=== PATIENT | female | born 1960 | race Caucasian/White ===

== ENCOUNTER 2018-02-24 11:19 | Emergency (ER) | payer OTHER ==
[2018-02-24] MEDS ORDERED: FENTANYL CITR 100 MCG/2 ML ONE ×2 (12:11→15:19)
--- NOTE | 2018-02-24 13:57 | RAD REPORT ---
EXAM DESCRIPTION: RAD - Ankle Left 3 View - 02/24/2018 1:50 pm CLINICAL HISTORY: Fall, ankle pain COMPARISON: None. FINDINGS: Comminuted fracture of the distal fibula is present at the diaphyseal metaphyseal junction . This is primarily a spiral type fracture with 2 mm of distraction. No significant angulation deform ity. There is a small a avulsed fragment 4 mm in size from the posterior malleolus. Nondisplaced white sverse fracture through the medial malleolus is present. No dislocation of the talus. No talus, calca neus or tarsal bone fracture identified. Soft tissue swelling is present around the ankle joint. No f oreign body. IMPRESSION: Left ankle trimalleolar fracture as detailed.
--- NOTE | 2018-02-24 14:00 | RAD REPORT ---
EXAM DESCRIPTION: RAD - Knee Left 3 View - 02/24/2018 1:50 pm CLINICAL HISTORY: Fall, knee pain COMPARISON: None. FINDINGS: Significant medial compartment narrowing seen with mild to moderate marginal spurring. Sim ilar spurs are present in the lateral compartment without joint space narrowing. Spurring of the rae lla articular margins seen without a patella fracture confirmed. Minimal joint effusion is present. O n the lateral view there is a small irregular bony density along the anterior margin. Small bony avul candelario or fracture cannot be excluded. Follow-up MR or CT imaging may be helpful for further characteri zation. IMPRESSION: Small bone avulsion or intra-articular loose body along the anterior margin of the joint line. Significant degenerative change in the medial compartment of the knee and more mild patellofemoral de generative change. Followup thin section CT imaging or MR imaging may be helpful for further characterization.
--- NOTE | 2018-02-24 14:40 | EDPHYS ---
Physician Documentation [facility] Name: Jose M Jovel Age: 57 yrs Sex: Female : 1960 Arrival Date: 02/24/2018 Time: 11:24 Bed 20 Private MD: ED Physician Jamir Matt HPI: 02/24 12:15 This 57 yrs old Female presents to ER via EMS with complaints of left knee snw pain. 12:15 The patient presents with decreased range of motion, an injury, pain. The complaints snw affect the left knee and anterior aspect of left ankle. Context: The problem was sustained at home, resulted from the patient falling, the patient is not able to ambulate, Problem is a result from a previous injury: Yes. Onset: The symptoms/episode began/occurred suddenly, just prior to arrival. Associated signs and symptoms: Pertinent positives: weakness. Severity of symptoms: At their worst the symptoms were moderate, severe. The patient has experienced similar episodes in the past. The patient has been recently seen by a physician: the patient's primary care provider, Dr. Small has been seeing Dr. Coker as well. Historical: - Allergies: 11:32 No Known Allergies; aj - Home Meds: 11:32 lisinopril 20 mg Oral tab 1 tab once daily [Active]; sertraline 100 mg oral tab 1 tab aj once daily [Active]; nortriptyline 75 mg Oral cap 1 cap once daily [Active]; Zetia 10 mg Oral tab 1 tab once daily [Active]; amlodipine 5 mg tab 1 tab once daily [Active]; bupropion HCl 300 mg Oral Tb24 1 tab once daily [Active]; tramadol 50 mg Oral tab twice a day [Active]; gabapentin 600 mg oral tab 1 tab 3 times per day [Active]; trazodone 100 mg Oral tab twice a day [Active]; - PMHx: 11:32 Hypertension; Chronic pain; TIA; aj - PSHx: 11:32 bulging disc; aj - Immunization history:: Adult Immunizations up to date. - Social history:: Smoking status: Patient/guardian denies using tobacco. ROS: 12:12 Constitutional: Negative for fever, chills, and weight loss, Eyes: Negative for injury, snw pain, redness, and discharge, ENT: Negative for injury, pain, and discharge, Neck: Negative for injury, pain, and swelling, Cardiovascular: Negative for chest pain, palpitations, and edema, Respiratory: Negative for shortness of breath, cough, wheezing, and pleuritic chest pain, Abdomen/GI: Negative for abdominal pain, nausea, vomiting, diarrhea, and constipation, Back: Negative for injury and pain, : Negative for injury, bleeding, discharge, and swelling, Skin: Negative for injury, rash, and discoloration, Neuro: Negative for headache, weakness, numbness, tingling, and seizure. 12:12 MS/extremity: Positive for injury or acute deformity, decreased range of motion, pain, swelling, tenderness, of the left knee. Exam: 12:13 Eyes: Pupils equal round and reactive to light, extra-ocular motions intact. Lids and snw lashes normal. Conjunctiva and sclera are non-icteric and not injected. Cornea within normal limits. Periorbital areas with no swelling, redness, or edema. ENT: Nares patent. No nasal discharge, no septal abnormalities noted. Tympanic membranes are normal and external auditory canals are clear. Oropharynx with no redness, swelling, or masses, exudates, or evidence of obstruction, uvula midline. Mucous membranes moist. Neck: Trachea midline, no thyromegaly or masses palpated, and no cervical lymphadenopathy. Supple, full range of motion without nuchal rigidity, or vertebral point tenderness. No Meningismus. Chest/axilla: Normal chest wall appearance and motion. Nontender with no deformity. No lesions are appreciated. Cardiovascular: Regular rate and rhythm with a normal S1 and S2. No gallops, murmurs, or rubs. Normal PMI, no JVD. No pulse deficits. Respiratory: Lungs have equal breath sounds bilaterally, clear to auscultation and percussion. No rales, rhonchi or wheezes noted. No increased work of breathing, no retractions or nasal flaring. Abdomen/GI: Soft, non-tender, with normal bowel sounds. No distension or tympany. No guarding or rebound. No evidence of tenderness throughout. Back: No spinal tenderness. No costovertebral tenderness. Full range of motion. Skin: Warm, dry with normal turgor. Normal color with no rashes, no lesions, and no evidence of cellulitis. Neuro: Awake and alert, GCS 15, oriented to person, place, time, and situation. Cranial nerves II-XII grossly intact. Motor strength 5/5 in all extremities. Sensory grossly intact. Cerebellar exam normal. Normal gait. 12:13 Constitutional: The patient appears agitated, anxious, obese, restless. 12:13 Head/face: Noted is polycythemic. 12:13 Musculoskeletal/extremity: Extremities: grossly normal except: noted in the left knee and left ankle: decreased ROM, swelling, tenderness, ROM: limited active range of motion due to pain, Circulation is intact in all extremities. Compartment Syndrome exam of affected extremity: is normal. 12:13 Psych: Behavior/mood is anxious, aggressive, Affect is animated, Oriented to person, place, time, Patient has no thoughts/intents to harm self or others. Vital Signs: 11:34 BP 136 / 72; Pulse 96; Resp 18; Temp 98.5; Pulse Ox 100% on R/A; Weight 91.63 kg; aj Height 5 ft. 3 in. (160.02 cm); Pain 9/10; 12:34 BP 135 / 89; Pulse 96; Resp 17; Pulse Ox 100% on R/A; dh3 13:30 BP 126 / 74; Pulse 93; Resp 17; Pulse Ox 96% on R/A; dh3 16:33 BP 128 / 86; Pulse 92; Resp 16; Pulse Ox 96% on R/A; aj 11:34 Body Mass Index 35.78 (91.63 kg, 160.02 cm) aj MDM: 11:32 Patient medically screened. snw 15:25 Data reviewed: vital signs, nurses notes. Data interpreted: Pulse oximetry: on room air snw is 96 %. Interpretation: normal. Counseling: I had a detailed discussion with the patient and/or guardian regarding: the historical points, exam findings, and any diagnostic results supporting the discharge/admit diagnosis, radiology results, the need for outpatient follow up, to return to the emergency department if symptoms worsen or persist or if there are any questions or concerns that arise at home. Special discussion: Based on the history and exam findings, there is no indication for further emergent testing or inpatient evaluation. I discussed with the patient/guardian the need to see the orthopedic surgeon for further evaluation of the symptoms. I discussed with the patient/guardian the need to see the primary care provider for further evaluation of the symptoms. 02/24 11:33 Order name: Knee Left 3 View XRAY; Complete Time: 14:03 snw 02/24 12:31 Order name: Ankle Left 3 View XRAY; Complete Time: 14:03 aj 02/24 14:07 Order name: Long Leg Splint: Posterior w/ Stirrup; Complete Time: 16:17 snw Administered Medications: 12:13 Drug: fentaNYL (PF) 75 mcg Route: IM; Site: right deltoid; aj 12:47 Follow up: Response: Pain is decreased aj 15:24 Drug: fentaNYL (PF) 75 mcg Route: IM; Site: left deltoid; aj 16:17 Follow up: Response: Pain is decreased aj Disposition: 21:08 Co-signature as Attending Physician, Jamir Matt MD. rn Disposition: 02/24/18 14:40 Discharged to Home. Impression: Fall on same level from slipping, tripping and stumbling, Trimalleolar fracture of lower leg. - Condition is Stable. - Discharge Instructions: Ankle Fracture, Cast or Splint Care, Fall Prevention and Home Safety, Walker Use. - Prescriptions for Tylenol- Codeine #3 300-30 mg Oral Tablet - take 2 tablet by ORAL route every 6 hours As needed; 30 tablet. orphenadrine citrate 100 mg Oral Tablet Sustained Release - take 1 tablet by ORAL route 2 times per day As needed; 20 tablet. - Medication Reconciliation Form, Thank You Letter, Antibiotic Education, Prescription Opioid Use form. - Follow up: Private Physician; When: 2 - 3 days; Reason: Recheck today's complaints, Continuance of care, Re-evaluation by your physician. Follow up: Ramana Wise MD; When: 1 - 2 days; Reason: Recheck today's complaints, Continuance of care. Signatures: Dispatcher [employer] Shannen Chen RN RN Joan Bah, MEDICAL LABORATORY MANAGER-C MEDICAL LABORATORY MANAGER-Csnw Jamir Matt MD MD car barn laborer: (The following items were deleted from the chart) 12:58 12:13 Knee Left 3 View ordered. EDMS EDMS
--- NOTE | 2018-02-24 14:40 | ER ---
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 Patient reports feeling unsteady while walking to her chair when she fell. Denies LOC. EMS splinted non deformed left lower leg RATING CLERK at ER. Transition of care: patient was not received from another setting of care. Initial Sepsis Screen: Does the patient meet any 2 criteria?. 11:25 Method Of Arrival: EMS: [facility] aj 11:27 Initial Sepsis Screen: Does the patient meet any 2 criteria? No. Patient's initial aj sepsis screen is negative. Does the patient have a suspected source of infection?. Onset of symptoms was February 24, 2018. Care prior to arrival: Splint applied. 11:27 Acuity: GUSTABO 4 aj Triage Assessment: 11:32 General: Appears in no apparent distress. comfortable, Behavior is calm, cooperative, aj appropriate for age. Pain: Complains of pain in left knee and anterior aspect of left ankle. Neuro: Level of Consciousness is awake, alert, obeys commands, Oriented to person, place, time, situation. Respiratory: Airway is patent Respiratory effort is even, unlabored, Respiratory pattern is regular, symmetrical. Derm: Skin is intact, is healthy with good turgor, Skin is pink, warm \T\ dry. normal. Musculoskeletal: Swelling absent Reports pain in left knee, left romero and anterior aspect of left ankle. Historical: - Allergies: 11:32 No Known Allergies; aj - Home Meds: 11:32 lisinopril 20 mg Oral tab 1 tab once daily [Active]; sertraline 100 mg oral tab 1 tab aj once daily [Active]; nortriptyline 75 mg Oral cap 1 cap once daily [Active]; Zetia 10 mg Oral tab 1 tab once daily [Active]; amlodipine 5 mg tab 1 tab once daily [Active]; bupropion HCl 300 mg Oral Tb24 1 tab once daily [Active]; tramadol 50 mg Oral tab twice a day [Active]; gabapentin 600 mg oral tab 1 tab 3 times per day [Active]; trazodone 100 mg Oral tab twice a day [Active]; - PMHx: 11:32 Hypertension; Chronic pain; TIA; aj - PSHx: 11:32 bulging disc; aj - Immunization history:: Adult Immunizations up to date. - Social history:: Smoking status: Patient/guardian denies using tobacco. Screenin:14 Abuse screen: Denies threats or abuse. Denies injuries from another. Nutritional aj screening: No deficits noted. Tuberculosis screening: No symptoms or risk factors identified. Fall Risk Fall in past 12 months (25 points). Assessment: 12:14 Reassessment: See triage. Patient has visitor at bedside. aj 12:46 Reassessment: Patient appears in no apparent distress at this time. Patient and/or aj family updated on plan of care and expected duration. Pain level reassessed. Patient is alert, oriented x 3, equal unlabored respirations, skin warm/dry/pink. Patient states feeling better. Patient states symptoms have improved. Vital Signs: 11:34 BP 136 / 72; Pulse 96; Resp 18; Temp 98.5; Pulse Ox 100% on R/A; Weight 91.63 kg; aj Height 5 ft. 3 in. (160.02 cm); Pain 9/10; 12:34 BP 135 / 89; Pulse 96; Resp 17; Pulse Ox 100% on R/A; dh3 13:30 BP 126 / 74; Pulse 93; Resp 17; Pulse Ox 96% on R/A; dh3 16:33 BP 128 / 86; Pulse 92; Resp 16; Pulse Ox 96% on R/A; aj 11:34 Body Mass Index 35.78 (91.63 kg, 160.02 cm) aj ED Course: 11:24 Patient arrived in ED. bd 11:25 Shannen Kumar, JOHN is Primary Nurse. aj 11:27 Joan Menezes FNP-C is PHCP. snw 11:27 Jamir Matt MD is Attending Physician. snw 11:27 Triage completed. aj 11:34 Arm band placed on left wrist. Patient placed in an exam room, on a stretcher. aj 13:50 Knee Left 3 View XRAY In Process Unspecified. EDMS 13:50 Ankle Left 3 View XRAY In Process Unspecified. EDMS 14:08 X-ray completed. Portable x-ray completed in exam room. jr1 14:39 Ramana Wise MD is Referral Physician. snw 16:33 Patient has correct armband on for positive identification. Bed in low position. aj 16:33 No provider procedures requiring assistance completed. Patient did not have IV access aj during this emergency room visit. Orthoglass splint: Posterior long leg splint applied on left leg. stirrup splint applied on By [employer] facilities operations technician. Administered Medications: 12:13 Drug: fentaNYL (PF) 75 mcg Route: IM; Site: right deltoid; aj 12:47 Follow up: Response: Pain is decreased aj 15:24 Drug: fentaNYL (PF) 75 mcg Route: IM; Site: left deltoid; aj 16:17 Follow up: Response: Pain is decreased aj Outcome: 14:40 Discharge ordered by . snw 16:37 Patient left the ED. aj Signatures: Dispatcher [employer] EDAZ Brea Carreon Amanda, RN RN Joan Bah, PODIATRY DOCTOR-C PODIATRY DOCTOR-Csnw Geovanna Kumar jr1 Aria Ramos 3 Corrections: (The following items were deleted from the chart) 11:35 11:27 Care prior to arrival: None. aj aj
[2018-02-24 16:41] VITALS: TEMP 98.5
[2018-02-24 16:43] VITALS: O2SAT 96
[2018-02-24 16:44] VITALS: BP 128/86
== END 2018-02-24 16:37 | disposition home or self-care (01) ==
LOC: ER 11:19
PROC: 2W3MX1Z Immobilization of Left Lower Extremity using Splint (ICD-10-PCS; principal; 2018-02-24)
DX: S82.852A Displaced trimalleolar fracture of left lower leg, initial encounter for closed fracture (principal); W19.XXXA Unspecified fall, initial encounter; Y93.9 Activity, unspecified; Y92.009 Unspecified place in unspecified non-institutional (private) residence as the place of occurrence of the external cause; I10 Essential (primary) hypertension
CPT/HCPCS: 96372; 99284; J3010

== ENCOUNTER 2018-02-25 18:30 | Inpatient (IN) | payer OTHER ==
--- NOTE | 2018-02-25 19:36 | RAD REPORT ---
EXAM DESCRIPTION: CT - Head Brain Wo Cont - 02/25/2018 7:30 pm CLINICAL HISTORY: Altered consciousness. COMPARISON: MR brain 01/13/2018 TECHNIQUE: All CT scans are performed using dose optimization technique as appropriate and may inclu de automated exposure control or mA/KV adjustment according to patient size. FINDINGS: No intracranial hemorrhage, hydrocephalus or extra-axial fluid collection.No areas of brai n edema or evidence of midline shift. The paranasal sinuses and mastoids are clear. The calvarium is intact. Vertebrobasilar atherosclerosi s noted. IMPRESSION: No acute intracranial abnormality.
--- NOTE | 2018-02-25 19:42 | RAD REPORT ---
EXAM DESCRIPTION: CT - Spine Lumbar Wo Con - 02/25/2018 7:34 pm CLINICAL HISTORY: Radiculopathy. COMPARISON: MRI 01/13/2018 TECHNIQUE: Axial noncontrast CT imaging of the lumbar spine was performed with coronal and sagittal re-formatted images. All CT scans are performed using dose optimization technique as appropriate and may include automated exposure control or mA/KV adjustment according to patient size. FINDINGS: No acute lumbar spine fracture seen. No aggressive marrow pattern or malalignment. Paraspinal tissues are normal in thickness. No paraspinal abscess or hematoma seen. Prominent degenerative changes present L5-S1 with vacuum disc degeneration, endplate osteophytes and endplate sclerosis. 5 mm degenerative anterolisthesis of L4 on 5 is also noted with facet hypertrophy and foraminal narrowing bilaterally. Aortoiliac atherosclerosis is seen. IMPRESSION: No acute lumbar spine abnormality. Prominent lower lumbar spondylosis.
[2018-02-25 20:21] LABS: Absolute Lymphocytes (CBC) 6.8 K/uL (0.7-4.9); Absolute Neutrophil 10.2 K/uL (1.8-8.0); Basophils % 1.3 % (0-1.3); Eosinophils % 2.5 % (0-4.4); Hematocrit 44.4 % (36.0-45.0); Lymphocytes % 34.2 % (15.3-44.8); MCH 29.2 pg (27.0-35.0); MCV 88.4 fL (80-100); Monocytes % 10.2 % (3.3-12.3); RBC Red Blood Cell Count 5.03 M/uL (3.86-4.86)
[2018-02-25 20:26] LABS: Potassium 4.5 mEq/L (3.6-5.0)
[2018-02-25 20:27] LABS: Protime INR 0.99
[2018-02-25 20:29] LABS: Magnesium 2.1 mg/dL (1.8-2.5)
[2018-02-25 20:37] LABS: CKMB Creatine Kinase MB 0.9 ng/ml (0.3-4.0)
[2018-02-25 21:04] LABS: Urine Blood NEGATIVE (NEG); Urine Glucose 1+ (NEG); Urine Protein NEGATIVE (NEG); Urine pH 7.5 (5.0-7.0)
[2018-02-25] MEDS ORDERED: HYDROCODONE/APAP 5/325 MG TAB ONE (21:18)
--- NOTE | 2018-02-25 21:44 | RAD REPORT ---
EXAM DESCRIPTION: RAD - Chest Single View - 02/25/2018 9:39 pm CLINICAL HISTORY: Chest pain, hypertension COMPARISON: 09/09/2014, 07/27/2009 FINDINGS: Portable technique limits examination quality. The lungs are grossly clear. The heart is normal in size. No displaced fractures. IMPRESSION: No acute intrathoracic process suspected.
--- NOTE | 2018-02-25 21:52 | ER ---
Nurse's Notes [facility] Name: Jose M Jovel Age: 57 yrs Sex: Female : 1960 Arrival Date: 02/25/2018 Time: 18:39 Bed 4 Private MD: Diagnosis: Weakness;Tremor, unspecified Presentation: 02/25 18:29 Presenting complaint: EMS states: they were called out for pt stating she was having a sv "TIA." On EMS arrival pt was having "jerky movements" with legs and arms. Movements appeared intentional by EMS. Pt was having erratic behavior. BP 109/70 HR 90s A\\T\\O x4. Transition of care: patient was not received from another setting of care. Onset of symptoms was February 25, 2018. Initial Sepsis Screen: Does the patient meet any 2 criteria? No. Patient's initial sepsis screen is negative. Does the patient have a suspected source of infection? No. Patient's initial sepsis screen is negative. Care prior to arrival:. 18:29 Method Of Arrival: EMS: [facility] sv 18:29 Acuity: GUSTABO 3 sv Triage Assessment: 18:49 General: Appears in no apparent distress. uncomfortable, obese, Behavior is sv cooperative, anxious. Pain: Denies pain. EENT: No signs and/or symptoms were reported regarding the EENT system. Neuro: Level of Consciousness is awake, alert, obeys commands, Oriented to person, place, time, situation, Moves all extremities. Full function Speech is normal, fast and at times rambling. Cardiovascular: Patient's skin is warm and dry. Pulses are 3+ in right radial artery and left radial artery. Respiratory: Respiratory effort is even, unlabored, Respiratory pattern is regular, symmetrical. Derm: Skin is pink, warm \\T\\ dry. Musculoskeletal: Pt has a splint to the LLE. Historical: - Allergies: 18:47 No Known Allergies; sv - Home Meds: 18:47 lisinopril 20 mg Oral tab 1 tab once daily [Active]; sertraline 100 mg Oral tab 1 tab sv once daily [Active]; nortriptyline 75 mg Oral cap 1 cap once daily [Active]; Zetia 10 mg Oral tab 1 tab once daily [Active]; amlodipine 5 mg tab 1 tab once daily [Active]; bupropion HCl 300 mg Oral Tb24 1 tab once daily [Active]; tramadol 50 mg Oral tab twice a day [Active]; gabapentin 600 mg Oral tab 1 tab 3 times per day [Active]; trazodone 100 mg Oral tab twice a day [Active]; - PMHx: 18:47 Chronic pain; Hypertension; TIA; sv - PSHx: 18:47 bulging disc; sv - Immunization history:: Adult Immunizations up to date. - Family history:: not pertinent. - Social history:: Smoking status: Patient uses tobacco products, unknown amount. - Hospitalizations: : No recent hospitalization is reported. Screenin:51 Abuse screen: Denies threats or abuse. Denies injuries from another. Nutritional sv screening: No deficits noted. Tuberculosis screening: No symptoms or risk factors identified. Fall Risk Fall in past 12 months (25 points). No secondary diagnosis (0 pts). No IV (0 pts). Ambulatory Aid- None/Bed Rest/Nurse Assist (0 pts). Gait- Normal/Bed Rest/Wheelchair (0 pts) Mental Status- Oriented to own ability (0 pts). Total Silveira Fall Scale indicates Low Risk Score (25-44 pts). Fall prevention measures have been instituted. Side Rails Up X 2 Placed close to Nursing Station Frequent Obs/Assesments occuring As available Patient and Family Educated on Fall Prevention Program and strategies. Assessment: 18:54 Reassessment: See triage assessment. sv 19:30 Reassessment: RECD REPORT FROM ALE LOPEZ. 57YO WF P/W JERKY VOLUNTARY MOVEMENTS, bp SELF DX TIA. H/O CHRONIC PAIN, HTN AND PSYCH D/O. CT COMPLETED, OTHER STUDIES IN PROCESS. 20:57 Reassessment: VS STABLE, CATALAN IN PLACE AND DRAINING, DISPO PENDING. bp 23:00 Reassessment: ADMIT ORDERS PLACED, TRANSPORT PENDING. bp Vital Signs: 18:48 BP 103 / 79; Pulse 100; Resp 20; Temp 98.7; Pulse Ox 98% ; Pain 0/10; sv 19:45 BP 98 / 53; Pulse 99; Resp 16; Pulse Ox 97% ; bp 20:18 BP 100 / 83; Pulse 100; Resp 20; Pulse Ox 97% on R/A; mt 20:57 BP 108 / 75; Pulse 98; Resp 16; Pulse Ox 97% ; bp 23:00 BP 105 / 68; Pulse 105; Resp 10; Pulse Ox 93% ; bp ED Course: 18:35 Patient has correct armband on for positive identification. Bed in low position. Call sv light in reach. Side rails up X2. Pulse ox on. NIBP on. Door closed. Warm blanket given. Head of bed elevated. 18:39 Patient arrived in ED. sv 18:40 Ale Colindres, RN is Primary Nurse. sv 18:45 Triage completed. sv 18:45 Jamir Matt MD is Attending Physician. rn 18:49 Arm band placed on right wrist. sv 18:54 ED physician to see patient. sv 19:02 Report given to Reggie LOPEZ. sv 19:30 CT Head Brain wo Cont In Process Unspecified. EDMS 19:[address] via stretcher. nj 19:32 CT completed. Patient tolerated procedure well. Patient moved back from CT. nj 19:34 CT Lumbar Spine Wo Con In Process Unspecified. EDMS 19:45 Inserted saline lock: 20 gauge in left antecubital area, using aseptic technique. Blood bp collected. 19:55 Primary Nurse role handed off by Ale Colindres RN bp 19:55 Reggie Pierre, JOHN is Primary Nurse. bp 20:45 Catalan cath inserted, using sterile technique, 16 Fr., by vt, balloon inflated, to mt gravity drainage, clamped. 21:38 X-ray completed. Portable x-ray completed in exam room. Patient tolerated procedure kc2 well. 21:39 XRAY Chest (1 view) In Process Unspecified. EDMS 21:51 Benjamin Lino MD is Hospitalizing Provider. rn 23:12 No provider procedures requiring assistance completed. Patient admitted, IV remains in bp place. Administered Medications: 21:20 Drug: [place] 5 mg-325 mg 1 tabs Route: PO; bp 23:15 Follow up: Response: Pain is decreased bp Output: 20:46 Urine: 2000ml (Catalan); Total: 2000ml. mt Outcome: 21:52 Decision to Hospitalize by Provider. rn 23:13 Condition: stable bp 23:13 Instructed on the need for admit. 23:28 Admitted to Tele accompanied by tech, via stretcher, room 218, with chart, Report bp called to ALE PATEL RN 23:30 Patient left the ED. bp Signatures: Dispatcher [employer] EDMS Roberto Colindreshanie, RN RN Jamir Bower MD MD rn Roderick, Jesica grover2 Herman Daniel Moriah mt Peltier, Brian, RN RN bp
--- NOTE | 2018-02-25 21:52 | EDPHYS ---
Physician Documentation [facility] Name: Jose M Jovel Age: 57 yrs Sex: Female : 1960 Arrival Date: 02/25/2018 Time: 18:39 Bed 4 Private MD: ED Physician Jamir Matt HPI: 02/25 19:42 This 57 yrs old Female presents to ER via EMS with complaints of Jerky rn movements. 19:42 Reports a few months of generalized weakness, now worsening weakness of legs, fell rn yesterday, family states having to crawl around, had ankle fracture yesterday, sees Dr. Ceron, told has TIAs but unknown other neurological diagnosis. . Onset: The symptoms/episode began/occurred 4 month(s) ago. The patient has experienced similar episodes in the past. The patient has been recently seen at the [facility] Emergency Department, yesterday. Historical: - Allergies: 18:47 No Known Allergies; sv - Home Meds: 18:47 lisinopril 20 mg Oral tab 1 tab once daily [Active]; sertraline 100 mg Oral tab 1 tab sv once daily [Active]; nortriptyline 75 mg Oral cap 1 cap once daily [Active]; Zetia 10 mg Oral tab 1 tab once daily [Active]; amlodipine 5 mg tab 1 tab once daily [Active]; bupropion HCl 300 mg Oral Tb24 1 tab once daily [Active]; tramadol 50 mg Oral tab twice a day [Active]; gabapentin 600 mg Oral tab 1 tab 3 times per day [Active]; trazodone 100 mg Oral tab twice a day [Active]; - PMHx: 18:47 Chronic pain; Hypertension; TIA; sv - PSHx: 18:47 bulging disc; sv - Immunization history:: Adult Immunizations up to date. - Family history:: not pertinent. - Social history:: Smoking status: Patient uses tobacco products, unknown amount. - Hospitalizations: : No recent hospitalization is reported. ROS: 19:42 Constitutional: Negative for fever, chills, and weight loss, Eyes: Negative for injury, rn pain, redness, and discharge, Neck: Negative for injury, pain, and swelling, Cardiovascular: Negative for chest pain, palpitations, and edema, Respiratory: Negative for shortness of breath, cough, wheezing, and pleuritic chest pain, Abdomen/GI: Negative for abdominal pain, nausea, vomiting, diarrhea, and constipation, MS/Extremity: Negative for deformity Skin: Negative for injury, rash, and discoloration, Neuro: Negative for headache, numbness, tingling, and seizure. Exam: 19:42 Constitutional: This is a well developed, well nourished patient who is awake, alert, rn appears anxious Head/Face: Normocephalic, atraumatic. Eyes: Pupils equal round and reactive to light, extra-ocular motions intact. Lids and lashes normal. Conjunctiva and sclera are non-icteric and not injected. Cornea within normal limits. Periorbital areas with no swelling, redness, or edema. Neck: Trachea midline, no thyromegaly or masses palpated, and no cervical lymphadenopathy. Supple, full range of motion without nuchal rigidity, or vertebral point tenderness. No Meningismus. Cardiovascular: Regular rate and rhythm with a normal S1 and S2. No gallops, murmurs, or rubs. Normal PMI, no JVD. No pulse deficits. Respiratory: Lungs have equal breath sounds bilaterally, clear to auscultation and percussion. No rales, rhonchi or wheezes noted. No increased work of breathing, no retractions or nasal flaring. Abdomen/GI: Soft, non-tender, with normal bowel sounds. No distension or tympany. No guarding or rebound. No evidence of tenderness throughout. MS/ Extremity: Pulses equal, no cyanosis. + intermittent coarse jerky movments, LLE in splint, too heavy for patient to lift with own power. Neuro: Awake and alert, GCS 15, oriented to person, place, time, and situation. Cranial nerves II-XII grossly intact. Motor strength 4/5 in all extremities. No drift. Sensory grossly intact. Vital Signs: 18:48 BP 103 / 79; Pulse 100; Resp 20; Temp 98.7; Pulse Ox 98% ; Pain 0/10; sv 19:45 BP 98 / 53; Pulse 99; Resp 16; Pulse Ox 97% ; bp 20:18 BP 100 / 83; Pulse 100; Resp 20; Pulse Ox 97% on R/A; mt 20:57 BP 108 / 75; Pulse 98; Resp 16; Pulse Ox 97% ; bp 23:00 BP 105 / 68; Pulse 105; Resp 10; Pulse Ox 93% ; bp MDM: 18:45 Patient medically screened. rn 21:50 Differential Diagnosis altered mental status, TIA, muscle weakness, radiculopathy, burner operator pain, muscle degradation. Data reviewed: vital signs, nurses notes, lab test result(s), EKG, radiologic studies, CT scan, plain films, and as a result, I will admit patient. Counseling: I had a detailed discussion with the patient and/or guardian regarding: the historical points, exam findings, and any diagnostic results supporting the discharge/admit diagnosis, lab results, radiology results, the need for further work-up and treatment in the hospital. Admission orders: after a detailed discussion of the patient's condition and case, the admit orders are written by me. ED course: Pt states unable to walk, can't support her weight, no clear etiology of weakness or leukocytosis, will admit for Dr. ceron consult. . 02/25 19:05 Order name: Ptt, Activated; Complete Time: 20:41 02/25 19:05 Order name: Protime (+inr); Complete Time: 20:41 02/25 19:05 Order name: Urine Microscopic Only 02/25 19:05 Order name: Basic Metabolic Panel; Complete Time: 20:41 02/25 19:05 Order name: CBC with Diff 02/25 19:05 Order name: Ckmb; Complete Time: 20:41 02/25 19:05 Order name: CT Head Brain wo Cont; Complete Time: 19:45 02/25 19:05 Order name: CPK; Complete Time: 20:41 02/25 19:05 Order name: Magnesium; Complete Time: 20:41 02/25 19:05 Order name: Troponin (emerg Dept Use Only); Complete Time: 20:41 02/25 19:05 Order name: CT Lumbar Spine Wo Con; Complete Time: 19:45 02/25 21:02 Order name: Urine Dipstick--Ancillary (enter results); Complete Time: 21:05 em1 02/25 21:06 Order name: XRAY Chest (1 view); Complete Time: 21:50 02/25 19:05 Order name: EKG; Complete Time: 19:11 rn 02/25 19:05 Order name: Cardiac monitoring; Complete Time: 19:53 rn 02/25 19:05 Order name: EKG - Nurse/Tech; Complete Time: 19:53 rn 02/25 19:05 Order name: IV Saline Lock; Complete Time: 19:53 rn 02/25 19:05 Order name: Labs collected and sent; Complete Time: 19:53 rn 02/25 19:05 Order name: NPO; Complete Time: 19:53 rn 02/25 19:05 Order name: O2 Per Protocol; Complete Time: 19:53 rn 02/25 19:05 Order name: O2 Sat Monitoring; Complete Time: 19:53 rn 02/25 19:05 Order name: Urine Dipstick-Ancillary (obtain specimen); Complete Time: 20:53 rn 02/25 20:47 Order name: Newberry; Complete Time: 20:47 mt Administered Medications: 21:20 Drug: [place] 5 mg-325 mg 1 tabs Route: PO; bp 23:15 Follow up: Response: Pain is decreased bp Disposition: 02/25/18 21:52 Hospitalization ordered by Benjamin Lino for Observation. Preliminary diagnosis are Weakness, Tremor, unspecified. - Bed requested for Telemetry/MedSurg (observation). - Status is Observation. bp - Condition is Stable. - Problem is an ongoing problem. - Symptoms are unchanged. UTI on Admission? No Signatures: Dispatcher [employer] Ale Grimes, JOHN LOPEZ Lidia Alcantara RN RN Jamir Matt MD MD rn [place], [facility] Reggie Pierre RN RN bp
[2018-02-25 22:14] LABS: Urine Bacteria <20 /HPF (<20); Urine Culture Reflex Order NOT NEEDED; Urine RBC <5 /HPF (NONE SEEN)
[2018-02-25] MEDS ORDERED: ACETAMINOPHEN 500 MG TAB PO PRN (23:24)
[2018-02-25] MEDS ORDERED: ONDANSETRON 4 MG/2 ML VIAL IV PRN (23:24)
[2018-02-25 23:47] VITALS: BMI 35.2
[2018-02-26] MEDS: TRAMADOL HCL 50 MG TAB PO PRN ×2 (01:20→08:53)
[2018-02-26] MEDS: NA CHLORIDE 0.9% 1,000 ML IV SCH ×3 (01:21→16:28)
[2018-02-26 04:54] LABS: Absolute Lymphocytes (CBC) 7.6 K/uL (0.7-4.9); Absolute Monocytes 2.1 K/uL (0.1-1.3); Absolute Neutrophil 8.8 K/uL (1.8-8.0); Basophils % 1.4 % (0-1.3); Eosinophils % 2.6 % (0-4.4); Hematocrit 43.7 % (36.0-45.0); Lymphocytes % 39.6 % (15.3-44.8); MCH 28.7 pg (27.0-35.0); MCV 89.9 fL (80-100); MPV 11.1 fL (7.6-11.3); Monocytes % 10.7 % (3.3-12.3); RBC Red Blood Cell Count 4.86 M/uL (3.86-4.86)
--- NOTE | 2018-02-26 05:02 | P.HP ---
Certification for Inpatient Patient admitted to: Observation With expected LOS: <2 Midnights Practitioner: I am a practitioner with admitting privileges, knowledge of patient current condition, hospital course, and medical plan of care. Services: Services provided to patient in accordance with Admission requirements found in Title 42 Section 412.3 of the Code of Federal Regulations Patient History Date of Service: 02/25/18 Reason for admission: failure to thrive History of Present Illness: Ms Jovel is a 57 years old woman with history of some sort of involuntary movement disorder, not yet diagnosed, followed up by Dr Coker, came to ED yesterday after sustained a fall leading with a left ankle trimaleolar fracture. She was sent home with an order to follow up with Dr Wise as outpatient. However, she came back to ED today since she is very weak. She states that has not been able to sleep well in the last couple of days since her involuntary movements have been worse. No history of fever or chills, Lab work remarkable elevated at 20K. CXR shows no acute abnormalities. UA negative. Allergies No Known Allergies Allergy (Verified 09/10/14 00:03) - Past Medical/Surgical History Has patient received pneumonia vaccine in the past: Yes Diabetic: No -: HTN -: High cholesterol -: Hernia -: herniated disc -: Chronic bk pain -: vertebretes 1 & 4 displaced -: Depression -: ulcer on esophagus -: sx to remove cyst on tail of pancrease -: Hernia Repair -: Edith -: lap Band and removal -: Splenectomy - Family History Mother -: Heart disease, Diabetes, Stroke - Social History Smoking Status: Former smoker Alcohol use: No CD- Drugs: No Caffeine use: Yes Place of Residence: Home Review of Systems 10-point ROS is otherwise unremarkable Physical Examination - Vital Signs Temperature: 98.1 F Blood Pressure: 111/62 Pulse: 104 Respirations: 18 Pulse Ox (%): 95 - Physical Exam General: Alert, In no apparent distress HEENT: Atraumatic, PERRLA, Mucous membr. moist/pink, EOMI, Sclerae nonicteric Neck: Supple, 2+ carotid pulse no bruit, No LAD, Without JVD or thyroid abnormality Respiratory: Clear to auscultation bilaterally, Normal air movement Cardiovascular: Regular rate/rhythm, Normal S1 S2 Gastrointestinal: Normal bowel sounds, No tenderness Musculoskeletal: No tenderness, Other (left ankle immobilized with a cast) Integumentary: No rashes Neurological: Normal speech, Normal tone, Normal affect Lymphatics: No axilla or inguinal lymphadenopathy - Studies Laboratory Data (last 24 hrs) 02/25/18 19:52: WBC 19.8 H, Hgb 14.7, Hct 44.4, Plt Count 390 02/25/18 19:52: Sodium 141, Potassium 4.5, BUN 17, Creatinine 1.37 H, Glucose 192 H, Magnesium 2.1 02/25/18 19:52: PT 11.7, INR 0.99, APTT 27.5 Assessment and Plan - Problems (Diagnosis) (1) Weakness Current Visit: Yes Status: Acute (2) Leukocytosis Onset Date: 09/13/14 Current Visit: No Status: Acute Qualifiers: Leukocytosis type: unspecified Qualified Code(s): D72.829 - Elevated white blood cell count, unspecified (3) Failure to thrive Current Visit: Yes Status: Acute Qualifiers: Failure to thrive age range: in adult Qualified Code(s): R62.7 - Adult failure to thrive - Plan The patient will be admitted to the hospital due to failure to thrive, due to generalized weakness, no clear neurologic problem leading with involuntary movements. Will give IV fluids, consult Dr Coker, Dr Wise due to recent left ankle fracture, and PT. - Advance Directives Does patient have a Living Will: No Does patient have a Durable POA for Healthcare: No
[2018-02-26 05:32] LABS: Potassium 4.9 mEq/L (3.6-5.0)
[2018-02-26 05:45] LABS: Protime INR 1.03
[2018-02-26 07:27] LABS: Blood Morphology Comment NOT SEEN (NOT SEEN); Platelet Estimate ADEQ; Platelets, Giant FEW; Urine White Blood Cell Casts OK
--- NOTE | 2018-02-26 07:28 | EKG ---
Test Date: 2018-02-25 Test Time: 19:40:44 Puncher: GIUSEPPE MEASUREMENT RESULTS: Intervals: Rate: 98 AK: 166 QRSD: 92 QT: 346 QTc: 441 Clute: P: 60 AK: 166 QRS: 45 T: 68 INTERPRETIVE STATEMENTS: Normal sinus rhythm Normal ECG Compared to ECG 09/09/2014 13:51:59 No significant changes Electronically Signed On 02-26-18 07:28:27 CDT by Sergei Woods
[2018-02-26] MEDS ORDERED: MORPHINE 4 MG/ML SYR IV ONE (09:22)
[2018-02-26] MEDS ORDERED: MEPERIDINE HCL 25 MG/0.5 ML IV ONE (10:09)
[2018-02-26] MEDS: GABAPENTIN 300 MG CAP PO SCH ×2 (13:37→20:48)
[2018-02-26] MEDS: HYDROCODONE/APAP 7.5/325 MG TAB PO PRN ×2 (14:50→20:48)
--- NOTE | 2018-02-26 18:58 | PN ---
Date of Progress Note: 02/26/2018 Subjective: The patient seen and examined, chart reviewed, and case discussed with RN and Dr. Wise as well as Dr. Coker. The patient states that, she recently had an ankle fracture. Does report significant amount of pain, asking for something stronger. No further tremors. Review of Systems: Negative except as above. Medications: Reviewed. Physical Examination: Vital Signs: Temperature 98.1, heart rate 104, blood pressure 111/62, respirations 18, and O2 95% on room air. General: awake, alert, oriented x3, in some mild distress, appears older than stated age female, obese, BMI 35. CV: S1, S2. Sinus tachycardia. No murmurs. Peripheral pulses present. Respiratory: Moving air well bilaterally. No wheezing. Gastrointestinal: Abdomen is soft, nontender, nondistended. Positive bowel sounds. Extremities: No clubbing, cyanosis, or edema. Neurologic: Nonfocal. Musculoskeletal: Left ankle in a tong cast. Assessment: 1. Generalized weakness. 2. Failure to thrive. 3. Leukocytosis, likely secondary to splenectomy. 4. Recent left trimalleolar fracture. The patient will need surgery, however , can be done as an outpatient. Discussed with Dr. Wise. 5. Essential hypertension, stable. We will resume home medications as appropriate. 6. Obesity, body mass index 35. 7. Hyperlipidemia, mixed. Continue home medications. 8. Chronic back pain, midline, without sciatica. 9. Major depressive disorder, on SSRI. 10. Gastrointestinal and deep venous thrombosis prophylaxis with PPI and SCDs. 11. Tremors Plan: Resume home medications as appropriate. We will obtain Neurology consultation for the patient's tremor and rule out seizure. Discharge once cleared by Neurology. The patient will need outpatient surgery for her ankle. /ZULEYKA Voice ID: [id number] Report ID: [id number] NARA
[2018-02-26] MEDS: NORTRIPTYLINE HCL 25 MG CAP PO SCH (20:49)
[2018-02-26] MEDS: TRAZODONE 50 MG TABLET PO SCH (21:44)
--- NOTE | 2018-02-26 23:43 | CON ---
Reason For Consultation: Consultation called because of involuntary tremors. History Of Present Illness: Ms. Jovel is a 57-year-old right-handed patient with multip le medical problems, however, she does come in after having repeated involuntary jerking episodes of the arms and legs, one that actually resulted in a fall and left leg fracture. The fracture is a lef t ankle trimalleolar fracture. She said the tremors may begin without warning involving the arms and legs, especially the arms, she will have jerking movements; the leg will have jerking movements, and her entire body may suddenly jerk. Events occur while walking typically or changing position from s itting to standing and walking. Events typically do not happen much while lying. She denies any con fusion or loss of memory or ability to speak during the events. She says she is unable to do purpose ful directed activities with her arms or legs during the events. Events occur up to about 2 times pe r week and have been going on for the last year. She had one on 02/24/2018 that resulted in a fall w ith a fracture as indicated above. She is currently awaiting surgery by Dr. Wise later this week. She was seen in the office and her workup at that time did include a brain MRI done January 13, 2018, th e study identified small vessel ischemic disease with low likelihood of MS being considered. She als o had lumbar spine MRI that showed advanced degenerative joint disease at L5-S1 level with moderate f oraminal stenosis, but no central spinal stenosis at those levels. She had a normal routine EEG and prior to that had a negative head CT scan. Since this hospitalization, her head CT scan was repeated and is again unremarkable and she had a lumbar spine CT scan which did show prominent degenerative c hanges as indicated in the L5-S1 region with endplate osteophytes and there was 5 mm anterolisthesis of L4 on L5 and narrowed foramina bilaterally. There was no acute lumbar spinal cord abnormality, bu t the prominent lumbar spondylosis was compatible though it was seen on the MRI of the lumbosacral sp ine. Past Medical History: Hypertension, dyslipidemia, disk herniation, hernia, chronic lower back pain, depression, esophageal ulcers. Past Surgical History: Removal of a cyst at tail of pancreas, hernia repair, cholecystectomy, lap ba nd surgery and removal, splenectomy. Family History: Diabetes and stroke and heart disease in mother. Allergies: NO KNOWN DRUG ALLERGIES. Social History: Smoked in the past. No recent alcohol, tobacco, or IV drug use. Review of Systems: As indicated and she has tremors that occur paroxysmally without clear precipitating factors and as d escribed. She has no recent fevers or chills, nausea or vomiting, myalgias, arthralgias, rash, heada poppy, weight change. No psychiatric complaints. Physical Examination: Vital Signs: Blood pressure 138/99, pulse 108, respiratory rate 18, temperature 97.2, oxygen saturat ion 90% on room air. Weight 238 pounds. Height 5 feet 9 inches. BMI 35. General: Ms. Jovel is resting in bed. She is in no acute distress. She does have a left lower e xtremity cast on in preparation for surgery. HEENT: She is normocephalic, atraumatic. Sclerae anicteric. Oropharynx is pink and moist. Neck: Supple. Chest: Clear. Heart: Regular. Extremities: Show no edema or cyanosis on the right, left leg is again in splint actually. Neurologic: Alert, oriented to situation, place, and person. Cranial nerves 2 through 12 are intact by examination. Motor in upper extremities intact proximally and distally with 5/5 strength. Sensa tion in the upper extremities proximally distally intact, in the lower extremity on the right side in tact. Light touch, temperature, pinprick, and strength intact in the lower extremity on the right an d the left leg is again in a splint. Coordination in the upper and lower extremity on the right side is intact. The patient has not ambulated as she has a nonweightbearing status on the left lower ext remity. Laboratory Studies: Her white blood cell shows elevation to 19.3 with normal differential. She has an INR of 1.03. Her sodium is 141, potassium 4.9, chloride 105, carbon dioxide 30, BUN 15, creatinin e 1.04, glucose up to 209, calcium 9.0. Procalcitonin is negative at less than 0.05. Urinalysis nanette ws 1+ glucose and pH 7.5, is otherwise unremarkable. Chest x-ray shows no acute cardiothoracic proce sses. Assessment: Ms. Jovel is a 57-year-old patient with uncharacterized convulsive type episodes with out alteration of consciousness. She does have elevated white blood cell count of unclear etiology t hat is being worked up by our primary team. Plan: 1.At some point, the patient should have ambulatory video-EEG monitoring for event characterization. 2.At this point, we will not order any new neurological workup except again the patient will have th e procedure once she is complete with surgery and has postop followup and is released so that testing can be done on an outpatient basis. 3.Events should be logged by the patient in an event diary. 4.May consider starting an antiepileptic medication, Keppra 250 mg twice daily, however, will await ambulatory study prior to beginning such medication. 5.The patient will follow up with Dr. Coker's office to get that testing done once she is dischar ge and released from Orthopedic Surgery. [place]/ZULEYKA Voice ID: [id number] Report ID: [id number]
--- NOTE | 2018-02-27 01:09 | CON ---
Date of Consultation: 02/26/2018 Reason For Consultation: Left ankle pain. History Of Present Illness: Ms. Jovel is a 57-year-old female, who was presented to the ER yesterday with weakness. She had a recent history of left ankle injury after a fall. She was seen in the emergency room on February 24, then diagnosed with a left trimalleolar ankle fracture and placed in a knee splint and was sent to my clinic for further evaluation. She did not make it to my clinic, but instead came to the emergency room secondary to weakness yesterday. She reports pain in her left ankle. Otherwise, no other musculoskeletal complaints. She does report also some generalized weakness and involuntary movement disorder that she has seen Neurology for. Review of Systems: As above, otherwise negative. Past Medical History: Hypertension, hypercholesterolemia. Past Surgical History: Splenectomy and lap band surgery with removal, cholecystectomy, hernia repair, and pancreas surgery for cyst removal. Family History: Reviewed and noncontributory. Social History: Denies tobacco, alcohol, or drug use. Lives at home. Physical Examination: General: No apparent distress. HEENT: Normocephalic, atraumatic. Neck: Supple. Cardiovascular: Brisk cap refill to all digits. Chest: Nonlabored breathing. Abdomen: Nondistended. Psychiatric: Response to exam. Musculoskeletal: Bilateral upper extremities functional range of motion without pain. No gross deformities. No obvious dislocations. Right lower extremity functional range of motion without pain. No gross deformities. No obvious dislocations. Left lower extremity in a splint over her left ankle. The toes are pink and warm with brisk capillary refill. Positive firing of EHL and FHL. No pain with range of motion of the left hip. No tenderness to palpation over the femur or knee. X-rays: X-rays of the left ankle demonstrate a trimalleolar ankle fracture with small posterior malleolus fracture < 25% of the joint surface and a comminuted fibular fracture. Assessment And Plan: Ms. Jovel is a 57-year-old female with a left trimalleolar ankle fracture. Given her unstable fracture pattern, I have recommended open reduction and internal fixation. Risks and benefits associated with operative and nonoperative treatment were discussed with the patient and her family at length and they expressed understanding. I will wait for clearance from Neurology to proceed with operative treatment. If the patient is cleared during this hospital stay, we will proceed with open reduction and internal fixation of her left ankle. KIZZY/ZULEYKA Voice ID: [id number] Report ID: [id number] MTDD
[2018-02-27] MEDS: HYDROCODONE/APAP 7.5/325 MG TAB PO PRN ×2 (05:12→18:05)
[2018-02-27] MEDS: NA CHLORIDE 0.9% 1,000 ML IV SCH ×2 (05:13→14:56)
[2018-02-27] MEDS: GABAPENTIN 300 MG CAP PO SCH ×3 (09:00→20:49)
[2018-02-27] MEDS ORDERED: MEPERIDINE HCL 25 MG/0.5 ML IV ONE (09:39)
[2018-02-27] MEDS: MEPERIDINE HCL 25 MG/0.5 ML IV PRN ×2 (14:51→18:46)
--- NOTE | 2018-02-27 15:55 | PN ---
Date of Progress Note: 02/27/2018 Subjective: The patient is seen and examined. Chart reviewed and case discussed with RN and Dr. Wise. The patient states her pain is somewhat better going for left ankle surgery today. Review of Systems: Negative except as above. Medications: Reviewed. Physical Examination: Vital Signs: Temperature 97.1, heart rate 100, blood pressure 141/78, respirations 18, O2 100% on half liter via nasal cannula. General: Awake, alert, oriented x3, in mild distress due to pain. Obese, BMI 35. Appears within stated age, slightly ill appearing. CV: S1, S2. Sinus tachycardia. Peripheral pulses present bilaterally. Respiratory: Moving air well bilaterally. No wheezing. Gastrointestinal: Abdomen is soft, nontender, nondistended. Positive bowel sounds. Extremities: No clubbing, cyanosis, or edema. Musculoskeletal: Left ankle in a splint. Neurologic: Nonfocal. The patient intact to light touch. Laboratory Data: procalcitonin is less than 0.05. Assessment And Plan: A 57-year-old female with. 1. Generalized weakness. 2. Failure to thrive. 3. Leukocytosis secondary to status post splenectomy. 4. Recent left trimalleolar fracture. The patient will be going for surgery with Dr. Wise. The patient is non-weight bearing at this time. Pain is controlled with medications. 5. Essential hypertension stable. Continue medications. 6. Obesity, BMI 35. 7. Hyperlipidemia, mixed. Continue statin. 8. Chronic back pain, midline, without sciatica. 9. Major depressive disorder on SSRI. 10. Gastrointestinal and deep venous thrombosis prophylaxis, PPI and SCDs. 11. Uncharacterized convulsive type episodes without alteration of consciousness, unclear if this is unlikely to be seizure-type episode. Neurology on board. Appreciate Dr. Coker's input. He recommends an ambulatory video EEG monitoring for event characterization after the patient has had surgery and is able to participate. Does not recommend initiating antiepileptics at this time. Her workup on this hospitalization including head CT scan and lumbar CT scan does not show any acute event. The patient has had multiple imaging studies including MRI of the brain and spine recently. The patient is cleared for surgery and will continue to monitor closely. SA/MODL Voice ID: [id number] Report ID: [id number] MTDD
[2018-02-27] MEDS: SERTRALINE HCL 100 MG TAB PO SCH (17:25)
[2018-02-27] MEDS: LISINOPRIL 20 MG TAB PO SCH (17:26)
[2018-02-27] MEDS: EZETIMIBE 10 MG TAB PO SCH (17:26)
[2018-02-27] MEDS: AMLODIPINE 5 MG TAB PO SCH (17:26)
[2018-02-27] MEDS: BUPROPION HCL XL 150 MG TAB PO SCH (17:26)
[2018-02-27] MEDS: NORTRIPTYLINE HCL 25 MG CAP PO SCH (20:49)
[2018-02-27] MEDS: TRAZODONE 50 MG TABLET PO SCH (20:49)
[2018-02-27] MEDS: JUVEN PACKET PO SCH (21:00)
[2018-02-28] MEDS: NA CHLORIDE 0.9% 1,000 ML IV SCH ×3 (00:44→21:24)
[2018-02-28 05:12] LABS: Absolute Lymphocytes (CBC) 4.6 K/uL (0.7-4.9); Absolute Monocytes 1.9 K/uL (0.1-1.3); Absolute Neutrophil 13.6 K/uL (1.8-8.0); Basophils % 0.9 % (0-1.3); Eosinophils % 1.6 % (0-4.4); Hematocrit 45.6 % (36.0-45.0); Lymphocytes % 22.3 % (15.3-44.8); MCH 28.9 pg (27.0-35.0); MCV 89.7 fL (80-100); MPV 11.1 fL (7.6-11.3); Monocytes % 9.3 % (3.3-12.3); RBC Red Blood Cell Count 5.08 M/uL (3.86-4.86)
[2018-02-28 05:25] LABS: Albumin 3.4 g/dL (3.2-5.5); Bilirubin Total 0.9 mg/dL (0.3-1.2); Potassium 4.3 mEq/L (3.6-5.0); Protein, Total 6.6 g/dL (6.0-8.3)
[2018-02-28 06:25] LABS: Blood Morphology Comment NOT SEEN (NOT SEEN); Platelet Estimate INCR
[2018-02-28] MEDS: JUVEN PACKET PO SCH ×2 (09:00→21:00)
[2018-02-28] MEDS: GABAPENTIN 300 MG CAP PO SCH ×3 (09:00→22:26)
[2018-02-28] MEDS: SOD CHLORIDE 0.65% NASAL SPRAY NAS SCH ×3 (09:00→22:25)
[2018-02-28] MEDS ORDERED: PROPOFOL 200 MG/20 ML VIAL IV ONE (09:09)
[2018-02-28] MEDS: LISINOPRIL 20 MG TAB PO SCH (09:11)
[2018-02-28] MEDS ORDERED: MIDAZOLAM HCL 2 MG/2 ML INJ ONE (09:11)
[2018-02-28] MEDS: AMLODIPINE 5 MG TAB PO SCH (09:11)
[2018-02-28] MEDS: MEPERIDINE HCL 25 MG/0.5 ML IV PRN ×3 (09:11→23:45)
[2018-02-28] MEDS: SERTRALINE HCL 100 MG TAB PO SCH (09:11)
[2018-02-28] MEDS ORDERED: LIDOCAINE 2% MPF 5 ML VIAL ONE (09:11)
[2018-02-28] MEDS ORDERED: ONDANSETRON 4 MG/2 ML VIAL ONE (09:12)
[2018-02-28] MEDS ORDERED: FENTANYL CITR 100 MCG/2 ML ONE ×2 (09:12→11:01)
[2018-02-28] MEDS ORDERED: CEFAZOLIN SODIUM 1 GM/VIAL ONE (09:30)
[2018-02-28] MEDS ORDERED: Ringers Lactate 1,000 ML IV ONE ×2 (09:36→11:02)
[2018-02-28] MEDS ORDERED: MEPERIDINE HCL 25 MG/0.5 ML ONE (10:20)
[2018-02-28] MEDS ORDERED: DEXAMETHASONE 10 MG/ML VIAL ONE (10:20)
[2018-02-28] MEDS ORDERED: ESMOLOL HCL 10 ML IV ONE ×2 (10:59→11:00)
[2018-02-28] MEDS ORDERED: NS 0.9% VIAL 10 ML ONE (11:01)
[2018-02-28] MEDS ORDERED: MORPHINE 10 MG/ML VIAL ONE (11:01)
--- NOTE | 2018-02-28 11:51 | RAD REPORT ---
EXAM DESCRIPTION: RAD - Ankle Left 2 View - 02/28/2018 11:44 am CLINICAL HISTORY: Left ankle fracture. COMPARISON: None. FINDINGS: Fluoroscopic imaging of left ankle was submitted from an ORIF fracture. Details of the pro cedure not available.
--- NOTE | 2018-02-28 11:54 | P.BOP ---
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
[2018-02-28] MEDS ORDERED: CEFAZOLIN 2 GM in NA CHLORIDE 0.9% 100 ML IVPB SCH (12:21)
[2018-02-28] MEDS: MEPERIDINE HCL 50 MG/ML AMP ONE ×3 (12:31→12:50)
--- NOTE | 2018-02-28 12:43 | RAD REPORT ---
EXAM DESCRIPTION: RAD - Ankle Left 2 View - 02/28/2018 12:35 pm CLINICAL HISTORY: Ankle fracture. COMPARISON: 02/24/2018 FINDINGS: Lateral fibular sideplate is in placed with multiple screws. Two screws are seen in the me dial malleolus. Bone detail is obscured by plaster splint material.
[2018-02-28] MEDS: EZETIMIBE 10 MG TAB PO SCH (13:09)
[2018-02-28] MEDS: BUPROPION HCL XL 150 MG TAB PO SCH (13:09)
--- NOTE | 2018-02-28 16:15 | PN ---
Date of Progress Note: 02/28/2018 Subjective: The patient seen and examined, chart reviewed, and case discussed with RN. The patient is going for ankle surgery this morning, was unable to go yesterday due to OR being booked with emergency cases. Review of Systems: Negative except as above. Medications: Reviewed. Physical Examination: Vital Signs: Temperature 97.4, heart rate 120, blood pressure 132/78, respirations 18, and O2 92% on room air. General: Awake, alert, oriented x3, in some mild distress due to pain. Appears older than stated age female, obese, BMI 35. CV: S1, S2. Sinus tachycardia. Peripheral pulses present bilaterally. Respiratory: Moving air well bilaterally. No wheezing. No stridor. Gastrointestinal: Abdomen is soft, nontender, nondistended. Positive bowel sounds. Extremities: No clubbing, cyanosis, or edema. Musculoskeletal: Left ankle TTP Neurologic: Nonfocal. Laboratory Data: Sodium 137, potassium 4.3, chloride 106, CO2 22, BUN 8, creatinine 0.79, glucose 215, and calcium 9.4. WBC 20.6, H and H 14.6, 45.6, and platelets 441. Procalcitonin less than 0.05 from 02/26/2018. Assessment And Plan: A 57-year-old female with; 1. Generalized weakness. 2. Failure to thrive. 3. Leukocytosis secondary to status post splenectomy. 4. Recent left trimalleolar fracture, going for surgery today by Dr. Wise. Continue pain medications. 5. Essential hypertension, stable. 6. Obesity, body mass index 35. 7. Mixed hyperlipidemia, statin. 8. Chronic back pain, midline, without sciatica. 9. Major depressive disorder, on SSRI. 10. Gastrointestinal and deep venous thrombosis prophylaxis with PPI, SCDs. 11. Convulsive type episode without alteration of consciousness, unlikely to be seizure. We will continue to monitor. SA/MODL Voice ID: [id number] Report ID: [id number] NARA
[2018-02-28] MEDS: HYDROCODONE/APAP 7.5/325 MG TAB PO PRN (16:18)
[2018-02-28] MEDS: CEFAZOLIN/SWI 2gm 2 GM/20 ML SYR IV SCH ×2 (16:19→22:27)
--- NOTE | 2018-02-28 17:33 | RAD REPORT ---
EXAM DESCRIPTION: CT - Chest For Pe Angio - 02/28/2018 5:28 pm CLINICAL HISTORY: Chest pain. COMPARISON: None. TECHNIQUE: CT angiogram of the pulmonary arteries was performed with MIP. All CT scans are performed using dose optimization technique as appropriate and may include automated exposure control or mA/KV adjustment according to patient size. FINDINGS: No evidence of pulmonary thromboembolism. No acute aortic finding demonstrated. Linear subsegmental atelectasis is present in the left lung base. No focal pulmonary infiltrate seen. No significant pericardial or pleural fluid. No concerning bony finding. Fatty liver is noted in the upper abdomen. Prominent ventral hernias are partially imaged. IMPRESSION: No evidence of pulmonary thromboembolism. Linear subsegmental atelectasis in the left lung base.
[2018-02-28] MEDS: TRAZODONE 50 MG TABLET PO SCH (22:26)
[2018-02-28] MEDS: NORTRIPTYLINE HCL 25 MG CAP PO SCH (22:26)
[2018-03-01] MEDS: NA CHLORIDE 0.9% 1,000 ML IV SCH ×2 (03:50→15:02)
[2018-03-01] MEDS: MEPERIDINE HCL 25 MG/0.5 ML IV PRN ×2 (05:11→12:04)
[2018-03-01 05:24] LABS: Absolute Lymphocytes (CBC) 5.9 K/uL (0.7-4.9); Absolute Monocytes 2.5 K/uL (0.1-1.3); Absolute Neutrophil 12.5 K/uL (1.8-8.0); Eosinophils % 0.1 % (0-4.4); Hematocrit 43.9 % (36.0-45.0); Lymphocytes % 27.7 % (15.3-44.8); MCH 29.1 pg (27.0-35.0); MCV 90.1 fL (80-100); MPV 10.5 fL (7.6-11.3); RBC Red Blood Cell Count 4.88 M/uL (3.86-4.86)
[2018-03-01 05:59] LABS: Albumin 3.4 g/dL (3.2-5.5); Bilirubin Total 0.8 mg/dL (0.3-1.2); Magnesium 1.8 mg/dL (1.8-2.5); Potassium 4.2 mEq/L (3.6-5.0); Protein, Total 6.8 g/dL (6.0-8.3)
[2018-03-01] MEDS ORDERED: MAGNESIUM SULFATE 1 gm IVPB 1 GM/100 ML BAG IV ONE (08:00)
[2018-03-01] MEDS: GABAPENTIN 300 MG CAP PO SCH ×3 (09:00→20:57)
[2018-03-01] MEDS: JUVEN PACKET PO SCH ×2 (09:00→20:58)
[2018-03-01] MEDS: SOD CHLORIDE 0.65% NASAL SPRAY NAS SCH ×2 (09:00→20:58)
--- NOTE | 2018-03-01 09:41 | P.PN ---
Subjective Date of Service: 03/01/18 Chief Complaint: s/p ORIF of the left ankle pain controlled Physical Examination - Vital Signs Temperature: 97.4 F Blood Pressure: 142/78 Pulse: 124 Respirations: 18 Pulse Ox (%): 92 - Physical Exam General: Alert, In no apparent distress Musculoskeletal: Other (LLE: splint c/d/i; +EHL/FHL; toes pink and warm w/ BCR) Assessment And Plan - Plan Jose M is a 57 yo male s/p ORIF of her left bimalleolar ankle fracture -NWB LLE -PT to mobilize today -once mobilizes safely with PT, may be discharged home -d/c jos this AM
[2018-03-01] MEDS: AMLODIPINE 5 MG TAB PO SCH (09:57)
[2018-03-01] MEDS: EZETIMIBE 10 MG TAB PO SCH (09:58)
[2018-03-01] MEDS: HYDROCODONE/APAP 7.5/325 MG TAB PO PRN ×3 (09:58→20:58)
[2018-03-01] MEDS: LISINOPRIL 20 MG TAB PO SCH (09:59)
[2018-03-01] MEDS: SERTRALINE HCL 100 MG TAB PO SCH (09:59)
[2018-03-01] MEDS: BUPROPION HCL XL 150 MG TAB PO SCH (10:01)
--- NOTE | 2018-03-01 15:31 | PN ---
Date of Progress Note: 03/01/2018 Subjective: The patient seen and examined. Chart reviewed and case discussed with Dr. Wise and RN. The patient states her pain is quite significant. The patient is very hesitant to move asking for m ore pain medications. Review of Systems: Negative except as above. Medications: Reviewed. Physical Examination: Vital Signs: Temperature 97.4, heart rate 124, blood pressure 142/78, respirations 18, O2 92% on ti m air. General: Awake, alert, oriented x3. Some mild distress due to pain. Morbidly obese female. BMI 35 . CV: S1, S2. Sinus tachycardia. Peripheral pulses present. Respiratory: Moving air well bilaterally. No wheezing. Gastrointestinal: Abdomen soft, nontender, nondistended. Positive bowel sounds. Extremities: No clubbing, cyanosis, or edema. Musculoskeletal: Left ankle in boot. Neurologic: Nonfocal. Laboratory Data: Sodium 137, potassium 4.2, chloride 103, CO2 25, BUN 8, creatinine 0.69, glucose 21 4, calcium 8.9, magnesium 1.8, AST 50, ALT 71, alkaline phosphatase 215. D-dimer on 03/05/2018 was 1 474. WBC from today 21.2, H and H 14.2, 43.9, platelets 439, neutrophils 59%. CT angio chest from 0 02/28/2018 shows no evidence of PE. Linear subsegmental atelectasis in the left lung base. Assessment And Plan: A 57-year-old female with: 1.Recent left trimalleolar fracture, status post surgery, non-weight bearing. We will continue with physical therapy and pain control. Appreciate Dr. Wise's input. 2.Generalized weakness, improved. 3.Leukocytosis. The patient's procalcitonin is negative. We will repeat level. Does not appear to be septic. White count likely secondary to status post splenectomy. 4.Essential hypertension, stable. 5.Status post splenectomy. 6.Obesity, BMI 35. 7.Hyperlipidemia. Continue statin. 8.Chronic back pain, midline, without sciatica, controlled with medications. 9.Major depressive disorder, on selective serotonin reuptake inhibitors. 10.Convulsive type episodes without alteration of consciousness, doubt seizure. Continue to monitor . Appreciate Dr. Coker's input. 11.Gastrointestinal and deep venous thrombosis prophylaxis with PPI. We will start on Lovenox for D VT prophylaxis 24-hours post surgery. 12.Tachycardia, unclear etiology. We will obtain an echocardiogram. Start on beta blockers. Josy nue to monitor. We will obtain EKG. /ZULEYKA Voice ID: [id number] Report ID: [id number]
[2018-03-01] MEDS: METOPROLOL TAR 25 MG TAB PO SCH (17:35)
[2018-03-01] MEDS: ENOXAPARIN 30 MG/0.3 ML SQ SCH (17:35)
[2018-03-01] MEDS: TRAZODONE 50 MG TABLET PO SCH (20:57)
[2018-03-01] MEDS: NORTRIPTYLINE HCL 25 MG CAP PO SCH (20:59)
[2018-03-02] MEDS: NA CHLORIDE 0.9% 1,000 ML IV SCH ×2 (00:30→03:24)
[2018-03-02] MEDS: HYDROCODONE/APAP 7.5/325 MG TAB PO PRN ×4 (04:51→22:10)
[2018-03-02 05:06] LABS: Absolute Lymphocytes (CBC) 4.8 K/uL (0.7-4.9); Absolute Monocytes 2.4 K/uL (0.1-1.3); Absolute Neutrophil 10.6 K/uL (1.8-8.0); Basophils % 1.2 % (0-1.3); Eosinophils % 1.7 % (0-4.4); Hematocrit 42.1 % (36.0-45.0); Lymphocytes % 26.4 % (15.3-44.8); MCV 89.8 fL (80-100); MPV 10.4 fL (7.6-11.3); Monocytes % 13.2 % (3.3-12.3); RBC Red Blood Cell Count 4.69 M/uL (3.86-4.86)
[2018-03-02 05:38] LABS: Albumin 3.1 g/dL (3.2-5.5); Bilirubin Total 0.7 mg/dL (0.3-1.2); Magnesium 1.8 mg/dL (1.8-2.5); Potassium 4.2 mEq/L (3.6-5.0); Protein, Total 6.1 g/dL (6.0-8.3)
[2018-03-02] MEDS ORDERED: MAGNESIUM SULFATE 1 gm IVPB 1 GM/100 ML BAG IV ONE (06:00)
[2018-03-02] MEDS: METOPROLOL TAR 25 MG TAB PO SCH ×2 (06:09→18:27)
[2018-03-02] MEDS: MEPERIDINE HCL 25 MG/0.5 ML IV PRN (06:17)
[2018-03-02] MEDS: GABAPENTIN 300 MG CAP PO SCH ×3 (08:44→20:23)
[2018-03-02] MEDS: JUVEN PACKET PO SCH ×2 (08:44→20:36)
[2018-03-02] MEDS: LISINOPRIL 20 MG TAB PO SCH (08:45)
[2018-03-02] MEDS: BUPROPION HCL XL 150 MG TAB PO SCH (08:45)
[2018-03-02] MEDS: EZETIMIBE 10 MG TAB PO SCH (08:45)
[2018-03-02] MEDS: AMLODIPINE 5 MG TAB PO SCH (08:45)
[2018-03-02] MEDS: SOD CHLORIDE 0.65% NASAL SPRAY NAS SCH ×2 (08:45→21:00)
[2018-03-02] MEDS: SERTRALINE HCL 100 MG TAB PO SCH (08:46)
[2018-03-02] MEDS ORDERED: POLYETHYL GLY 3350 17 GM/DOSE PO PRN (08:51)
--- NOTE | 2018-03-02 10:13 | OP ---
Date of Procedure: 02/28/2018 Surgeon: Ramana Wise MD Preoperative Diagnosis: Left trimalleolar ankle fracture. Postoperative Diagnosis: Left trimalleolar ankle fracture. Procedure Performed: 1.Open reduction and internal fixation, left bimalleolar ankle fracture. 2.Closed treatment of left posterior malleolus fracture. Anesthesia: General LMA. Fluids: Per Anesthesia record. Estimated Blood Loss: Less than 10 cc. Tourniquet Time: 92 minute at 300 mmHg. Complication: None. Implants: A 6-hole Biomet distal fibular locking plate. Indication For Procedure: Jose M is a 57-year-old female who presented to the ER on February 24 after fo llowing with this left ankle injury. She had a left trimalleolar ankle fracture, which was minimally displaced and was placed in a splint and sent out. She returned the following day secondary to gene ral malaise and failure to thrive and was admitted. I was consulted for further evaluation and treat ment. Given her unstable ankle fracture pattern, I recommended open reduction and internal fixation. I discussed with the patient at length risks, benefits associated with operative and nonoperative t reatment and she expressed understanding and elected to proceed with operative treatment. Description Of Procedure: After informed consent was obtained, the patient was identified in the pre operative holding area. The left lower extremity was marked. The patient was then taken back to the operating room, transferred to the operating table in supine fashion and placed under general LMA an esthesia. The left lower extremity splint was then removed. The patient had no abrasions or blister s over the medial, anterior, and lateral aspect of her left ankle. She, however, was noted to have a decubitus pressure sore on the posterior aspect of her calcaneus on her left lower extremity. It wa s approximately 5 x 4 cm in size. There was no surrounding erythema or sign of infection. It was fa r from the area of surgery and even though lack of sign of infection, we elected to proceed with proc edure. The left lower extremity was then prepped and draped in usual sterile fashion. A time-out wa s initiated. Correct patient and procedure were confirmed and identified. The patient did receive h er preoperative prophylactic antibiotics. The left lower extremity was then exsanguinated and tourni quet was inflated at 300 mmHg. Attention was first taken to the lateral malleolus where an approxima tely a 4 cm longitudinal incision was made and centered over the distal fibula. Dissection was taken down to the distal fibula using Metzenbaum. The fracture was identified and the fracture edges were freshened and the fracture site was irrigated with normal saline. A point of reduction clamp was th en used to reduce the fracture. A 6-hole distal fibular locking plate was placed on the distal fibul a. Proper placement and reduction were confirmed using fluoroscopy. A single 3.5 cortical screw was placed in the proximal of the fracture and it was placed in bicortical fashion. Again fluoroscopy w as used to confirm proper positioning of the plate and maintenance of reduction. This was followed b y placement of 4 locking screws placed distally in unicortical fashion. Two remaining screws were pl aced in the proximal segment. These were 3.5 mm cortical screws in bicortical fashion with overall g ood alignment of the fracture and placement of the hardware confirmed by fluoroscopy. A Cotton test was then performed. There was no instability of the syndesmosis noted. The wound was then irrigated thoroughly with normal saline. Subcutaneous tissue was approximated using 2-0 Vicryl. Next, attent ion was taken to the medial malleolus where approximately a 4 cm longitudinal incision was made over the tip of the medial malleolus. Dissection was then taken down to the fracture site using Lars mendoza. The fracture site was irrigated. The fracture was then reduced using a two-point reduction clamp . Two K-wires were placed in a retrograde fashion. K-wires were parallel in configuration. They we re over-drilled with a cannulated drill bit over the proximal cortex and two 38 mm 4.0 cannulated scr ews were placed. Again proper position was confirmed using fluoroscopy. The jigs were then removed. Final x-rays were taken. The medial malleolus wound was then irrigated with normal saline. The diez bcutaneous tissue was approximated using a 2-0 Vicryl. Skin was approximated using a 3-0 nylon in ho rizontal mattress fashion. Sterile dressings were applied. The patient had Xeroform and a well-padd ed dressing over the posterior aspect of her heel and was placed and she was placed in a posterior st irrup splint. Tourniquet was let down. The patient is awakened and transferred to PACU in stable co ndition. Postoperative Plan: She will be nonweightbearing on her left lower extremity. Physical Therapy will be consulted. We will write orders to have the patient to keep her heel off the bed and keep her le ft lower extremity elevated. I will have the patient follow up with me early next week for splint re moval and dressing change. At that point, I will re-evaluate the pressure sore on her left heel and if she needs further wound care, we will refer her to the wound care center. KIZZY/ZULEYKA Voice ID: [id number] Report ID: [id number]
--- NOTE | 2018-03-02 12:04 | EKG ---
Test Date: 2018-03-01 Test Time: 12:50:30 Coil Strapper: JEREMY MEASUREMENT RESULTS: Intervals: Rate: 119 KS: 156 QRSD: 90 QT: 310 QTc: 436 [place]: P: 60 KS: 156 QRS: 23 T: 62 INTERPRETIVE STATEMENTS: Sinus tachycardia Nonspecific T wave abnormality Abnormal ECG Compared to ECG 02/25/2018 19:40:44 T-wave abnormality now present Sinus rhythm no longer present Electronically Signed On 03-02-18 12:03:26 CDT by Sergei Woods
[2018-03-02] MEDS: DOCUSATE NA 100 MG CAP PO SCH ×2 (12:40→20:24)
--- NOTE | 2018-03-02 14:04 | PN ---
Date of Progress Note: 03/02/2018 Subjective: The patient seen and examined, chart reviewed, and case discussed with RN. The patient states that she worked with Physical Therapy yesterday. Her pain is better controlled. Review of Systems: Negative except as above. Medications: Reviewed. Physical Examination: Vital Signs: Temperature 97.7, heart rate 110, blood pressure 134/77, respirations 18, O2 93% on 3 L via nasal cannula. General: Awake, alert, oriented x3. Some mild distress, appears older than stated age. Obese femal e. BMI 35. CV: S1, S2. Sinus tachycardia. No murmurs. Peripheral pulses present bilaterally. Respiratory: Moving air well bilaterally. No wheezing. No stridor. Gastrointestinal: Abdomen is soft, nontender, nondistended. Positive bowel sounds. Extremities: No clubbing, cyanosis, or edema. Musculoskeletal: Left leg wrapped. Incision site clean, dry, intact. Neurologic: Nonfocal. Laboratory Data: Sodium 137, potassium 4.2, chloride 104, CO2 of 28, BUN 8, creatinine 0.72, glucose 217, calcium 8.8, magnesium 1.8, albumin 3.1. WBC 18.3, H and H are 13.6 and 42.1, platelets 430, n eutrophils 57%. Assessment And Plan: A 57-year-old female with: 1.Recent left trimalleolar fracture, status post surgery, currently nonweightbearing. Continue PT. We will discontinue Demerol. Continue hydrocodone and Dr. Wise on board. The patient will need minerva ab placement. 2.Generalized weakness, improving. 3.Leukocytosis secondary to splenectomy. Does not appear to be septic, afebrile. 4.Essential hypertension, stable. 5.Status post splenectomy. 6.Obesity, BMI 35. 7.Hyperlipidemia, mixed. Continue statin. 8.Chronic back pain, midline, without sciatica, controlled. 9.Major depressive disorder, on SSRI. 10.Convulsive-type episode without alteration of consciousness. No seizure activity. Dr. Coker does not recommend any anticonvulsants at this time. The patient will need outpatient ambulatory EEG monitoring. 11.Tachycardia. We will obtain echo on Saturday. The patient started on beta blockers. 12.Gastrointestinal, DVT prophylaxis with PPI and Lovenox. 13.Plan, refer to rehab. SA/MODL Voice ID: [id number] Report ID: [id number]
--- NOTE | 2018-03-02 18:19 | RAD REPORT ---
EXAM DESCRIPTION: RAD - Chest Single View - 03/02/2018 6:13 pm CLINICAL HISTORY: Difficulty breathing COMPARISON: 02/25/2018 FINDINGS: Portable technique limits examination quality. The lungs are grossly clear. The heart is normal in size. No displaced fractures. IMPRESSION: No acute intrathoracic process suspected.
[2018-03-02] MEDS: ENOXAPARIN 30 MG/0.3 ML SQ SCH (18:27)
[2018-03-02 21:07] VITALS: O2SAT 93
[2018-03-02] MEDS: TRAZODONE 50 MG TABLET PO SCH (22:43)
[2018-03-02] MEDS: NORTRIPTYLINE HCL 25 MG CAP PO SCH (22:43)
[2018-03-03] MEDS: HYDROCODONE/APAP 7.5/325 MG TAB PO PRN ×2 (04:23→09:12)
[2018-03-03 04:52] LABS: Absolute Lymphocytes (CBC) 6.2 K/uL (0.7-4.9); Absolute Monocytes 1.7 K/uL (0.1-1.3); Absolute Neutrophil 8.3 K/uL (1.8-8.0); Basophils % 0.2 % (0-1.3); Eosinophils % 3.4 % (0-4.4); Hematocrit 41.6 % (36.0-45.0); Lymphocytes % 36.9 % (15.3-44.8); MCH 29.1 pg (27.0-35.0); MPV 10.5 fL (7.6-11.3); RBC Red Blood Cell Count 4.63 M/uL (3.86-4.86)
[2018-03-03 05:03] LABS: Potassium 3.3 mEq/L (3.6-5.0)
[2018-03-03] MEDS: METOPROLOL TAR 25 MG TAB PO SCH (05:47)
[2018-03-03] MEDS ORDERED: POTASSIUM 25 MEQ EFFERV TAB PO ONE (06:40)
[2018-03-03] MEDS: JUVEN PACKET PO SCH (09:00)
[2018-03-03] MEDS: SOD CHLORIDE 0.65% NASAL SPRAY NAS SCH (09:00)
[2018-03-03] MEDS: LISINOPRIL 20 MG TAB PO SCH (09:00)
[2018-03-03] MEDS: AMLODIPINE 5 MG TAB PO SCH (09:00)
[2018-03-03] MEDS: GABAPENTIN 300 MG CAP PO SCH (09:13)
[2018-03-03] MEDS: SERTRALINE HCL 100 MG TAB PO SCH (09:14)
[2018-03-03] MEDS: DOCUSATE NA 100 MG CAP PO SCH (09:14)
[2018-03-03] MEDS: EZETIMIBE 10 MG TAB PO SCH (09:14)
[2018-03-03] MEDS: BUPROPION HCL XL 150 MG TAB PO SCH (09:15)
[2018-03-03 12:01] VITALS: BP 112/75; TEMP 96.5
--- NOTE | 2018-03-03 12:11 | P.DS ---
Admission Date: 02/27/18 Discharge Date: 03/03/18 Disposition: ROUTINE DISCHARGE Discharge Condition: GOOD Reason for Admission: s/p ORIF of the left ankle - Problems (1) Weakness Onset Date: 02/26/18 Current Visit: Yes Status: Acute (2) Leukocytosis Onset Date: 09/13/14 Current Visit: No Status: Acute Qualifiers: Leukocytosis type: unspecified Qualified Code(s): D72.829 - Elevated white blood cell count, unspecified (3) Failure to thrive Onset Date: 02/26/18 Current Visit: Yes Status: Acute Qualifiers: Failure to thrive age range: in adult Qualified Code(s): R62.7 - Adult failure to thrive Brief History of Present Illness: Ms Jovel is a 57 years old woman with history of some sort of involuntary movement disorder, not yet diagnosed, followed up by Dr Coker, came to ED yesterday after sustained a fall leading with a left ankle trimaleolar fracture. She was sent home with an order to follow up with Dr Wise as outpatient. However, she came back to ED today since she is very weak. She states that has not been able to sleep well in the last couple of days since her involuntary movements have been worse. No history of fever or chills, Lab work remarkable elevated at 20K. CXR shows no acute abnormalities. UA negative. Hospital Course: Ms Jovel had ORIF on 02/28/18, well tolerated, without post-operative complications. She was evaluated by Dr Coker due to pseudoseizures/ involuntary movements, and has recommended to do an ambulatory EEG. The patient was evaluated today by Dr Wise who is agree to discherge her home. She has refused rehab placement or home health PT to continue her rehabilitation. She will be discharged today in stable condition. Vital Signs/Physical Exam: Temp Pulse Resp BP Pulse Ox 96.5 F L 89 18 112/75 96 03/03/18 12:00 03/03/18 12:00 03/03/18 12:00 03/03/18 12:00 03/03/18 12:00 General: Alert, In no apparent distress HEENT: Atraumatic, PERRLA, EOMI Neck: Supple, JVD not distended Respiratory: Clear to auscultation bilaterally, Normal air movement Cardiovascular: Regular rate/rhythm, Normal S1 S2 Gastrointestinal: Normal bowel sounds, No tenderness Musculoskeletal: Other (right leg immobilized) Integumentary: No rashes Neurological: Normal speech, Normal tone, Normal affect Lymphatics: No axilla or inguinal lymphadenopathy Laboratory Data at Discharge: WBC 16.7 K/uL (4.3-10.9) H 03/03/18 04:05 Hgb 13.5 g/dL (12.0-15.0) 03/03/18 04:05 Hct 41.6 % (36.0-45.0) 03/03/18 04:05 Plt Count 463 K/uL (152-406) H 03/03/18 04:05 PT 12.1 SECONDS (9.5-12.5) 02/26/18 04:24 INR 1.03 02/26/18 04:24 APTT 27.5 SECONDS (24.3-36.9) 02/25/18 19:52 Sodium 137 mEq/L (135-145) 03/03/18 04:05 Potassium 3.3 mEq/L (3.6-5.0) L 03/03/18 04:05 BUN 11 mg/dL (6-20) 03/03/18 04:05 Creatinine 0.71 mg/dL (0.44-1.00) 03/03/18 04:05 Glucose 186 mg/dL (65-120) H 03/03/18 04:05 Magnesium 2.0 mg/dL (1.8-2.5) 03/03/18 04:05 Total Bilirubin 0.7 mg/dL (0.3-1.2) 03/02/18 04:41 AST 24 IU/L (10-42) 03/02/18 04:41 ALT 48 IU/L (10-60) 03/02/18 04:41 Alkaline Phosphatase 181 IU/L (42-121) H 03/02/18 04:41 Home Medications: Bupropion HCl [Bupropion Xl] 1 tab PO DAILY 02/26/18 Ezetimibe [Zetia] 1 tab PO DAILY 02/26/18 Gabapentin 1 tab PO TID 02/26/18 Lisinopril [Prinivil*] 1 tab PO DAILY 02/26/18 Nortriptyline HCl [Pamelor] 1 tab PO DAILY 02/26/18 Sertraline [Zoloft*] 1 tab PO DAILY 02/26/18 Tramadol HCl [Ultram] 1 tab PO BID 02/26/18 Trazodone HCl 2 tab PO BEDTIME 02/26/18 Metoprolol Tartrate [Lopressor*] 25 mg PO BID 6AM 6PM #60 tab 03/03/18 Patient Discharge Instructions: NWB LLE; keep splint c/d/i and elevated; elevate left heel off of bed on pillows Diet: Regular Activity: Non-weight bearing (LLE) Followup: Ramana Wise MD [ACTIVE - CAN ADMIT] - 03/06/18
--- NOTE | 2018-03-03 12:12 | P.PN ---
Subjective Date of Service: 03/03/18 Chief Complaint: s/p ORIF of the left ankle Subjective: Improving, Working w/ PT pain controlled Physical Examination - Vital Signs Temperature: 96.5 F Blood Pressure: 112/75 Pulse: 89 Respirations: 18 Pulse Ox (%): 96 - Physical Exam General: Alert, In no apparent distress Musculoskeletal: Other (LLE: splint c/d/i; toes pink and warm with BCR) Assessment And Plan - Plan Jose M is a 57 yo male s/p ORIF of her left bimalleolar ankle fracture POD#3 -NWB LLE -PT to mobilize -ok to d/c home from ortho standpoint and f/u later this week for dressing change
== END 2018-03-03 13:00 | disposition home or self-care (01) | DRG 494 ==
LOC: ER 18:30 → ERHOLD 21:53 → 2ND 23:13 → OBSVTOIN 02-27 07:30
PROVIDERS: ADMIT Internal Medicine; ATTEND Internal Medicine
PROC: 0QHH04Z Insertion of Internal Fixation Device into Left Tibia, Open Approach (ICD-10-PCS; 2018-02-28)
PROC: 0QSHXZZ Reposition Left Tibia, External Approach (ICD-10-PCS; 2018-02-28)
PROC: 0QHK04Z Insertion of Internal Fixation Device into Left Fibula, Open Approach (ICD-10-PCS; principal; 2018-02-28 10:00)
DX: S82.852A Displaced trimalleolar fracture of left lower leg, initial encounter for closed fracture (principal); R25.9 Unspecified abnormal involuntary movements; R62.7 Adult failure to thrive; R00.0 Tachycardia, unspecified; E66.9 Obesity, unspecified; E78.5 Hyperlipidemia, unspecified; F32.9 Major depressive disorder, single episode, unspecified; M54.9 Dorsalgia, unspecified; R25.1 Tremor, unspecified; I10 Essential (primary) hypertension; L89.899 Pressure ulcer of other site, unspecified stage; D72.829 Elevated white blood cell count, unspecified; E78.00 Pure hypercholesterolemia, unspecified; W19.XXXD Unspecified fall, subsequent encounter; Z90.81 Acquired absence of spleen; Z68.35 Body mass index [BMI] 35.0-35.9, adult
CPT/HCPCS: 36415; 51702; 70450; 71045; 71275; 72131; 80048; 80053; 81003; 81015; 82550; 82553; 83735; 84145; 84484; 85025; 85379; 85610; 85730; 93005; 94760; 96372; 97163; 99284; 99285; G0378; J0690; J1100; J1650; J2175; J2250; J2405; J3010; J3475; J7030; Q9967

== ENCOUNTER 2018-06-04 14:20 | Emergency (ER) | payer OTHER ==
[2018-06-04] MEDS ORDERED: TRAMADOL HCL 50 MG TAB ONE (16:06)
[2018-06-04] MEDS ORDERED: IBUPROFEN 400 MG TAB ONE (16:06)
[2018-06-04] MEDS ORDERED: CLINDAMYCIN 900MG/D5W 900 MG/50 ML BAG IV ONE (16:07)
--- NOTE | 2018-06-04 16:19 | RAD REPORT ---
EXAM DESCRIPTION: RAD - Os Calcis (Calcaneus) Heel - 06/04/2018 4:08 pm CLINICAL HISTORY: Calcaneus wound COMPARISON: None. FINDINGS: Surgical hardware is in place from prior fixation of fibular fracture. No acute hardware f inding. No acute finding of the distal tibia and fibula. Assessment is limited on a calcaneus assessm ent. No acute or destructive change to the calcaneus. No radiographic evidence for osteomyelitis. Soft tissue wound is evident posterior to the calcaneus. No air, foreign body or soft tissue calcific ation. IMPRESSION: No evidence for osteomyelitis or other acute finding of the calcaneus. No air, foreign body or calcification within the posterior calcaneus soft tissue wound.
[2018-06-04 16:28] LABS: Potassium 3.8 mmol/L (3.5-5.1)
[2018-06-04 16:31] LABS: Absolute Lymphocytes (CBC) 4.4 K/uL (0.7-4.9); Absolute Monocytes 1.2 K/uL (0.1-1.3); Absolute Neutrophil 8.7 K/uL (1.8-8.0); Basophils % 0.2 % (0-1.3); Eosinophils % 2.2 % (0-4.4); Hematocrit 40.4 % (36.0-45.0); Lymphocytes % 29.9 % (15.3-44.8); MCH 28.6 pg (27.0-35.0); MCV 89.2 fL (80-100); MPV 10.7 fL (7.6-11.3); Monocytes % 8.4 % (3.3-12.3); RBC Red Blood Cell Count 4.53 M/uL (3.86-4.86)
--- NOTE | 2018-06-04 16:50 | EDPHYS ---
Physician Documentation [facility] Name: Jose M Jovel Age: 57 yrs Sex: Female : 1960 Arrival Date: 06/04/2018 Time: 14:24 Bed 27 Private MD: None, None ED Physician Jamir Matt HPI: 06/04 15:28 This 57 yrs old Female presents to ER via Wheelchair with complaints of Foot cp Pain. 15:28 The patient presents with pain, swelling, tenderness. The complaints affect the left cp heel. 15:28 Patient reports noticing blister on left heel approximately 3 months ago that has not cp heeled. Patient reports increased swelling, pain and redness to area recently. 15:28 Treatment prior to arrival includes: no previous treatment. cp Historical: - Allergies: 14:29 No Known Allergies; sv - Home Meds: 14:29 amlodipine 5 mg tab 1 tab once daily [Active]; bupropion HCl 300 mg Oral Tb24 1 tab sv once daily [Active]; gabapentin 600 mg Oral tab 1 tab 3 times per day [Active]; lisinopril 20 mg Oral tab 1 tab once daily [Active]; nortriptyline 75 mg Oral cap 1 cap once daily [Active]; sertraline 100 mg Oral tab 1 tab once daily [Active]; tramadol 50 mg Oral tab twice a day [Active]; trazodone 100 mg Oral tab twice a day [Active]; Zetia 10 mg Oral tab 1 tab once daily [Active]; - PMHx: 14:29 Chronic pain; Hypertension; TIA; sv - PSHx: 14:29 bulging disc; left ankle; sv - Immunization history:: Adult Immunizations up to date. - Social history:: Smoking status: Patient/guardian denies using tobacco. - Ebola Screening: : No symptoms or risks identified at this time. ROS: 15:35 Constitutional: Negative for body aches, chills, fever, poor PO intake. cp 15:35 Eyes: Negative for injury, pain, redness, and discharge. cp 15:35 Cardiovascular: Negative for chest pain, edema, palpitations. 15:35 Respiratory: Negative for cough, shortness of breath, wheezing. 15:35 Abdomen/GI: Negative for abdominal pain, nausea, vomiting, and diarrhea. 15:35 MS/extremity: Positive for pain, swelling, tenderness, warmth, of the left heel. 15:35 All other systems are negative. Exam: 15:48 Constitutional: The patient appears in no acute distress, alert, awake, cp non-diaphoretic, non-toxic, well developed, well nourished, uncomfortable. 15:48 Head/Face: Normocephalic, atraumatic. cp 15:48 Eyes: Periorbital structures: appear normal, Conjunctiva: normal, no exudate, no injection, Sclera: no appreciated abnormality, Lids and lashes: appear normal, bilaterally. 15:48 ENT: External ear(s): are unremarkable, Ear canal(s): are normal, clear, TM's: dullness, bilaterally, Nose: is normal, Mouth: is normal, Posterior pharynx: is normal, airway is patent. 15:48 Chest/axilla: Inspection: normal, Palpation: is normal, no crepitus, no tenderness. 15:48 Cardiovascular: Rate: normal, Rhythm: regular. 15:48 Respiratory: the patient does not display signs of respiratory distress, Respirations: normal, no use of accessory muscles, no retractions, no splinting, no tachypnea, Breath sounds: are clear throughout, no decreased breath sounds, no stridor, no wheezing. 15:48 Abdomen/GI: Exam negative for discomfort, distension, guarding, Inspection: abdomen appears normal. 15:48 Musculoskeletal/extremity: Extremities: DVT Exam: No signs of deep vein thrombosis. 15:48 Skin: cellulitis, that is moderate, on the left heel, noted large area of necrotic skin, swelling, tenderness to palpation. Vital Signs: 14:30 BP 112 / 72; Pulse 73; Resp 18; Temp 99.1(O); Pulse Ox 97% ; Weight 96.62 kg; Height 5 sv ft. 3 in. (160.02 cm); Pain 7/10; 16:20 BP 112 / 78; Pulse 90; Resp 16; Pulse Ox 91% on R/A; Pain 8/10; sc1 17:27 BP 130 / 96; Pulse 80; Resp 16; Pulse Ox 92% on R/A; sc1 14:30 Body Mass Index 37.73 (96.62 kg, 160.02 cm) sv MDM: 15:16 Patient medically screened. cp 16:00 Differential diagnosis: open fracture, closed fracture, sepsis, cellulitis, abscess, cp osteomyelitis. 16:30 ED course: Consult with Wound Care who will see patient tomorrow \T\[id number] for evaluation. 16:50 Data reviewed: vital signs, nurses notes, lab test result(s), radiologic studies, plain cp films. 16:50 Test interpretation: by ED physician or midlevel provider: plain radiologic studies. cp Counseling: I had a detailed discussion with the patient and/or guardian regarding: the historical points, exam findings, and any diagnostic results supporting the discharge/admit diagnosis, lab results, radiology results, the need for outpatient follow up, wound care, to return to the emergency department if symptoms worsen or persist or if there are any questions or concerns that arise at home. Response to treatment: the patient's symptoms have mildly improved after treatment, and as a result, I will discharge patient. 06/04 15:25 Order name: CBC with Diff; Complete Time: 16:41 06/04 16:42 Interpretation: Normal except: WBC 14.7; PLT 472; RDW 15.4; NEUT A 8.7. 06/04 15:25 Order name: BMP; Complete Time: 16:35 06/04 16:36 Interpretation: Normal except: CL 110; GLUC 149; GFR 46. 06/04 15:25 Order name: XRAY Heel Os Calcis (calcaneus); Complete Time: 16:26 06/04 16:26 Interpretation: Report reviewed. 06/04 15:25 Order name: Wound Culture 06/04 16:53 Order name: [facility]; Complete Time: 17:27 EDMS Administered Medications: 16:07 Drug: Clindamycin 900 mg Route: IVPB; Infused Over: 30 mins; Site: right antecubital; tn1 17:30 Follow up: IV Status: Completed infusion; IV Intake: 50ml sc1 16:08 Drug: UltRAM 50 mg Route: PO; sc1 17:31 Follow up: Response: No adverse reaction tn1 16:08 Drug: Ibuprofen 800 mg Route: PO; sc1 17:31 Follow up: Response: No adverse reaction [facility] 16:50 Drug: Bactrim (160 mg-800 mg (DS) 1 tablet Route: PO; sc1 17:31 Follow up: Response: Medication administered at discharge. tn1 Disposition: 18:05 Co-signature as Attending Physician, Jamir Matt MD. rn Disposition: 06/04/18 16:50 Discharged to Home. Impression: Cellulitis of left lower limb - Left Heel. - Condition is Stable. - Discharge Instructions: Cellulitis, Adult. - Prescriptions for Clindamycin HCl 300 mg Oral Capsule - take 1 capsule by ORAL route every 6 hours for 10 days; 40 capsule. Bactrim DS 800- 160 mg Oral Tablet - take 1 tablet by ORAL route every 12 hours for 10 days; 20 tablet. - Medication Reconciliation Form, Thank You Letter, Antibiotic Education, Prescription Opioid Use, SBAR form form. - Follow up: Private Physician; When: 48 Hours; Reason: Wound Care clinic for reevaluation. - Problem is an ongoing problem. - Symptoms are unchanged. Signatures: Dispatcher [employer] Ale Grimes RN RN Jamir Bower MD MD rn Page, Corey, PA PA cp Caballero, Sylina, RN RN tn1 Corrections: (The following items were deleted from the chart) 17:29 16:50 06/04/2018 16:50 Discharged to Home. Impression: Cellulitis of left lower limb - sc1 Left Heel. Condition is Stable. Forms are SBAR form, Medication Reconciliation Form, Thank You Letter, Antibiotic Education, Prescription Opioid Use. Follow up: Private Physician; When: 48 Hours; Reason: Wound Care clinic for reevaluation. Problem is an ongoing problem. Symptoms are unchanged. cp
--- NOTE | 2018-06-04 16:50 | ER ---
Nurse's Notes [facility] Name: Jose M Jovel Age: 57 yrs Sex: Female : 1960 Arrival Date: 06/04/2018 Time: 14:24 Bed 27 Private MD: None, None Diagnosis: Cellulitis of left lower limb-Left Heel Presentation: 06/04 14:27 Presenting complaint: Patient states: right ankle surgery 3 months ago. Pt reports a sv "blood blister" on left heel, concerned it's getting infected. Pt also reports right foot swelling x 2 days. Transition of care: patient was not received from another setting of care. Onset of symptoms was June 02, 2018. Care prior to arrival: None. 14:27 Method Of Arrival: Wheelchair sv 14:27 Acuity: GUSTABO 3 sv 16:43 Risk Assessment: Do you want to hurt yourself or someone else? Patient reports no sc1 desire to harm self or others. 16:44 Initial Sepsis Screen: Does the patient meet any 2 criteria? No. Patient's initial sc1 sepsis screen is negative. 17:28 Initial Sepsis Screen: Does the patient have a suspected source of infection? No. sc1 Patient's initial sepsis screen is negative. Historical: - Allergies: 14:29 No Known Allergies; sv - Home Meds: 14:29 amlodipine 5 mg tab 1 tab once daily [Active]; bupropion HCl 300 mg Oral Tb24 1 tab sv once daily [Active]; gabapentin 600 mg Oral tab 1 tab 3 times per day [Active]; lisinopril 20 mg Oral tab 1 tab once daily [Active]; nortriptyline 75 mg Oral cap 1 cap once daily [Active]; sertraline 100 mg Oral tab 1 tab once daily [Active]; tramadol 50 mg Oral tab twice a day [Active]; trazodone 100 mg Oral tab twice a day [Active]; Zetia 10 mg Oral tab 1 tab once daily [Active]; - PMHx: 14:29 Chronic pain; Hypertension; TIA; sv - PSHx: 14:29 bulging disc; left ankle; sv - Immunization history:: Adult Immunizations up to date. - Social history:: Smoking status: Patient/guardian denies using tobacco. - Ebola Screening: : No symptoms or risks identified at this time. Screenin:41 Abuse screen: Denies threats or abuse. sc1 16:44 Fall Risk Gait- Weak (10 pts.). sc1 16:44 Nutritional screening: No deficits noted. Tuberculosis screening: No symptoms or risk ar1 factors identified. Assessment: 15:22 General: Appears comfortable, Behavior is calm, cooperative, appropriate for age, sc1 Denies fever, chills. Pain: Complains of pain in left heel Pain does not radiate. Pain currently is 10 out of 10 on a pain scale. Quality of pain is described as shooting, Pain began constant pain since ankle surgery 3 months ago Is continuous, Alleviated by medications, rest, Aggravated by increased activity, weight bearing, Also complains of. Derm: Wound noted left heel Wound is pt has wound to left heel, with minimal drainage, slight odor present, wound bed noted to have eschar appearance. Musculoskeletal: Swelling present in left lower extremetie, showing 2+ pitting edema. 16:40 Reassessment:. ar1 16:40 Reassessment: clindamycin infusion completed at this time. ar1 17:25 Reassessment: applied wet to dry dressing to left heel per wound healing center ar1 instructions. . Vital Signs: 14:30 BP 112 / 72; Pulse 73; Resp 18; Temp 99.1(O); Pulse Ox 97% ; Weight 96.62 kg; Height 5 sv ft. 3 in. (160.02 cm); Pain 7/10; 16:20 BP 112 / 78; Pulse 90; Resp 16; Pulse Ox 91% on R/A; Pain 8/10; sc1 17:27 BP 130 / 96; Pulse 80; Resp 16; Pulse Ox 92% on R/A; sc1 14:30 Body Mass Index 37.73 (96.62 kg, 160.02 cm) sv ED Course: 14:24 Patient arrived in ED. mr 14:25 None, None is Private Physician. mr 14:28 Triage completed. sv 14:30 Arm band placed on right wrist. sv 14:31 Patient placed in waiting room, in a wheelchair, Patient notified of wait time. sv 15:15 Dexter Carrillo PA is PHCP. cp 15:15 Jamir Matt MD is Attending Physician. cp 15:38 X-ray completed. Portable x-ray completed in exam room. Patient tolerated procedure ml well. 15:39 XRAY Heel Os Calcis (calcaneus) In Process Unspecified. EDMS 16:06 Wound Culture Sent. ar1 16:06 BMP Sent. ar1 16:06 CBC with Diff Sent. ar1 16:45 Patient has correct armband on for positive identification. Placed in gown. Bed in low sc1 position. Call light in reach. Side rails up X2. 17:23 No provider procedures requiring assistance completed. ar1 17:24 IV discontinued. sc1 Administered Medications: 16:07 Drug: Clindamycin 900 mg Route: IVPB; Infused Over: 30 mins; Site: right antecubital; sc1 17:30 Follow up: IV Status: Completed infusion; IV Intake: [place] [facility] [place] Drug: UltRAM 50 mg Route: PO; ar1 17:31 Follow up: Response: No adverse reaction sc1 16:08 Drug: Ibuprofen 800 mg Route: PO; sc1 17:31 Follow up: Response: No adverse reaction [facility] [place]:50 Drug: Bactrim (160 mg-800 mg (DS) 1 tablet Route: PO; ar1 17:31 Follow up: Response: Medication administered at discharge. ar1 Intake: 17:30 IV: 50ml; Total: [place]. [facility] [place]come: 16:50 Discharge ordered by . jose 17:23 Condition: good [facility] [place]:23 Discharge instructions given to patient, Instructed on discharge instructions, follow up and referral plans. wound care, follow up with wound care. appointment date 06/05 \\T\\0825. Demonstrated understanding of instructions, follow-up care, wound care, Prescriptions given X 2. 17:25 [place] [facility] [place]:29 Patient left the ED. ar1 Addendum: 06/08/2018 13:57 Addendum: Culture Results: Positive urine culture. No further action required. Bacteria s s sensitive to prescribed antibiotic. Signatures: Dispatcher [employer] EDAle Dawson RN RN sv Rivera, Maria mr Lopez, Melissa ml Smirch, Shelby, RN RN ss Page, Corey, PA PA cp Caballero, Sylina, RN RN ar1 Corrections: (The following items were deleted from the chart) 06/04 14:31 14:30 BP 112 / 72; Pulse 73bpm; Resp 18bpm; Pulse Ox 97%; 96.62 kg; Height 5 ft. 3 in.; sv BMI: 37.7; Pain 7/10; sv
[2018-06-04] MEDS ORDERED: SMZ./TMP. 800/160 MG TABLET ONE (16:51)
[2018-06-04 17:34] VITALS: TEMP 99.1
[2018-06-04 17:37] VITALS: BP 130/96; O2SAT 92
== END 2018-06-04 17:29 | disposition home or self-care (01) ==
LOC: ER 14:20
DX: L03.116 Cellulitis of left lower limb (principal); I10 Essential (primary) hypertension; Z86.73 Personal history of transient ischemic attack (TIA), and cerebral infarction without residual deficits
CPT/HCPCS: 36415; 73650; 80048; 85025; 87070; 87077; 87186; 87205; 96365; 99284

== ENCOUNTER 2018-08-07 08:29 | Day surgery (SDC) | payer OTHER ==
[2018-08-06 12:30] LABS: Protime INR 1.06
[2018-08-06 12:33] LABS: Potassium 4.5 mmol/L (3.5-5.1)
[2018-08-06 13:22] LABS: Absolute Monocytes 1.1 K/uL (0.1-1.3); Absolute Neutrophil 6.4 K/uL (1.8-8.0); Eosinophils % 2.7 % (0-4.4); Hematocrit 45.7 % (36.0-45.0); Lymphocytes % 38.7 % (15.3-44.8); MCH 29.2 pg (27.0-35.0); MPV 10.2 fL (7.6-11.3); Monocytes % 8.3 % (3.3-12.3); RBC Red Blood Cell Count 5.19 M/uL (3.86-4.86)
--- OUTSIDE RECORDS SUMMARY | 2018-08-07 08:30 | XMS REPORT ---
:1960 Author Organization [employer] Care Team Providers Name Role Phone Ramana Wise Provider Role Unavailable Allergies, Adverse Reactions, Alerts Substance Reaction Event Type N.K.D.A. Info Not Available Non Drug Allergy Problems Problem Type Condition Code Onset Dates Condition Status Assessment Pain in left ankle and joints of M25.572 Active left foot Assessment Closed bimalleolar fracture of S82.842D Active left ankle with routine healing, subsequent encounter Medications Medication Code Code Instructions Start End Status Dosage System Date Date Sertraline HCl [facility] 85970351222 50 MG Oral Active not defined Topiramate [facility] 69025699103 25 MG Oral Active not defined Doxepin HCl [facility] 14489989679 100 MG Oral Active not defined Ventolin HFA [facility] 95217433784 108 (90 Base) Active not MCG/ACT defined Inhalation Tramadol HCl [facility] 97977855473 50 MG Oral Active not defined Fluticasone [facility] 50796227065 50 MCG/ACT Active not Propionate Nasal defined Nortriptyline HCl [facility] 88557125421 75 MG Oral Active not defined BuPROPion HCl ER [facility] 95915697499 300 MG Oral Active not (XL) defined Clonazepam [facility] 62332713158 1 MG Oral Active not defined Trazodone HCl [facility] 50612736904 100 MG Oral Active not defined Gabapentin [facility] 89644409978 600 MG Oral Active not defined Meloxicam [facility] 25120394541 15 MG Oral Active not defined Santyl [facility] 12883510573 250 UNIT/GM Active not External defined Propranolol HCl [facility] 77037839406 10 MG Oral Active not defined Ezetimibe [facility] 11925869282 10 MG Oral Active not defined Lisinopril [facility] 97811473919 20 MG Oral Active not defined Sodium Chloride [facility] 12328333706 0.9 % Active not Irrigation defined Amlodipine [facility] 31439207702 5 MG Oral Active not Besylate defined Results No Known Results Summary Purpose [employer]ClinicalWorks Submission
[2018-08-07] MEDS ORDERED: NA CHLORIDE 0.9% 500 ML ONE (08:48)
[2018-08-07] MEDS ORDERED: HEPA 1000U/500MLS 1,000 UNIT/500 ML BAG IV ONE (09:54)
[2018-08-07] MEDS ORDERED: FENTANYL CITR 100 MCG/2 ML ONE ×3 (10:08→11:54)
[2018-08-07] MEDS ORDERED: MIDAZOLAM HCL 2 MG/2 ML INJ ONE ×2 (10:08→10:23)
[2018-08-07 12:33] VITALS: BP 126/84; O2SAT 98
[2018-08-07 13:01] VITALS: TEMP 97
--- NOTE | 2018-08-07 22:21 | OP ---
Surgeon: Ventura Santiago MD Procedure: Abdominal angiogram with runoff. Indication: Peripheral vascular disease, abnormal arterial Doppler. Procedure In Detail: The patient was brought to the cathode builder as an outpatient, prepped and draped in the routine sterile fashion. A 6-Malagasy sheath was introduced in the right common femoral artery. Angio-Seal was used to close the case. Abdominal angiogram with runoff was done using a pigtail cath eter. This showed moderate diffuse plaquing below the knee and posterior tibial, peroneal, and anter ior tibial. The popliteal was open. SFA was normal. The iliacs were normal. The distal aorta was normal. Noted was the absence of a kidney on the left side. There were no complications. Blood Loss: 5 cc. Postoperative Diagnosis: Peripheral artery disease, moderate. Plan: For medical therapy. Total conscious sedation was 30 minutes. Operators: Ventura Santiago M.D., and Luci Murray. TRUDY/ZULEYKA Voice ID: [id number] Report ID: [id number]
== END 2018-08-07 12:55 | disposition home or self-care (01) ==
LOC: CCL 08:29
DX: I70.203 Unspecified atherosclerosis of native arteries of extremities, bilateral legs (principal); I10 Essential (primary) hypertension; E78.5 Hyperlipidemia, unspecified; E78.6 Lipoprotein deficiency; J44.9 Chronic obstructive pulmonary disease, unspecified; F41.9 Anxiety disorder, unspecified; Z87.891 Personal history of nicotine dependence
CPT/HCPCS: 36246; 36415; 75630; 80048; 85025; 85610; 85730; C1760; C1887; C1893; J2250 ×2; J3010 ×3

== ENCOUNTER 2020-01-02 19:04 | Inpatient (IN) | payer OTHER ==
--- OUTSIDE RECORDS SUMMARY | 2020-01-02 19:06 | XMS REPORT ---
[...] Status Dosage System Date Date Sertraline HCl [facility] 91094605521 50 MG Oral Active not defined Topiramate [facility] 42348110849 25 MG Oral Active not defined Doxepin HCl [facility] 46115769236 100 MG Oral Active not defined Ventolin HFA [facility] 69176324178 108 (90 Base) Active not MCG/ACT defined Inhalation Tramadol HCl [facility] 03643121020 50 MG Oral Active not defined Fluticasone [facility] 99892656661 50 MCG/ACT Active not Propionate Nasal defined Nortriptyline HCl [facility] 85559745387 75 MG Oral Active not defined BuPROPion HCl ER [facility] 93123639827 300 MG Oral Active not (XL) defined Clonazepam [facility] 75399572832 1 MG Oral Active not defined Trazodone HCl [facility] 81638368360 100 MG Oral Active not defined Gabapentin [facility] 78621982633 600 MG Oral Active not defined Meloxicam [facility] 20519947366 15 MG Oral Active not defined Santyl [facility] 08429688057 250 UNIT/GM Active not External defined Propranolol HCl [facility] 60915189094 10 MG Oral Active not defined Ezetimibe [facility] 57140906487 10 MG Oral Active not defined Lisinopril [facility] 03365417966 20 MG Oral Active not defined Sodium Chloride [facility] 80982591947 0.9 % Active not Irrigation defined Amlodipine [facility] 21784421123 5 MG Oral Active not Besylate defined Results No Known Results Summary Purpose eClinicalWorks Submission
[2020-01-02 19:42] LABS: Arterial Blood Carboxyhemoglob 2.6 % (0-1.5); Blood Gas Oxyhemoglobin 95.6 % (94-97)
[2020-01-02] MEDS ORDERED: ONDANSETRON 4 MG/2 ML VIAL ONE (20:07)
[2020-01-02] MEDS ORDERED: CEFTRIAXONE/SWI 1gm 1 GM/10 ML SYR ONE (20:07)
[2020-01-02] MEDS ORDERED: FENTANYL CITR 100 MCG/2 ML ONE (20:07)
[2020-01-02] MEDS ORDERED: NA CHLORIDE 0.9% 2,000 ML ONE (20:07)
[2020-01-02] MEDS ORDERED: MEPERIDINE HCL 25 MG/0.5 ML ONE ×4 (20:34→23:57)
[2020-01-02 20:35] LABS: Absolute Lymphocytes (CBC) 5.5 K/uL (0.7-4.9); Hematocrit 53.8 % (36.0-45.0)
--- NOTE | 2020-01-02 20:42 | RAD REPORT ---
EXAM DESCRIPTION: RAD - Chest Single View - 01/02/2020 8:31 pm CLINICAL HISTORY: COUGH COMPARISON: Chest Single View dated 03/02/2018; Chest Single View dated 02/25/2018 TECHNIQUE: AP portable chest image was obtained 01/02/2020 8:31 pm . FINDINGS: No focal mass or consolidation. Interstitial pattern matches comparison studies. Heart and vasculature are normal. No measurable pleural effusion and no pneumothorax. No acute bony abnormalit y seen. No acute aortic findings suspected. IMPRESSION: No acute cardiopulmonary process. No significant interval changes.
[2020-01-02 20:54] LABS: ALT/SGPT 28 U/L (12-78); AST/SGOT 20 U/L (15-37); Albumin 3.8 g/dL (3.4-5.0); Alkaline Phosphatase 136 U/L (45-117); BUN Blood Urea Nitrogen 18 mg/dL (7-18); Bicarbonate 20 mmol/L (21-32); Bilirubin Direct 0.1 mg/dL (0-0.2); Bilirubin Total 0.8 mg/dL (0.2-1.0); Glucose Level 144 mg/dL (74-106); Lipase 101 U/L (73-393); Magnesium 1.9 mg/dL (1.8-2.4); NT PRO-BNP 13 pg/mL (<125); Potassium 4.1 mmol/L (3.5-5.1); Protein, Total 8.4 g/dL (6.4-8.2); Sodium Level 136 mmol/L (136-145); Troponin (Emerg Dept Use Only) < 0.02 ng/mL (0.0-0.045)
[2020-01-02 21:28] LABS: Blood Morphology Comment NOT SEEN (NOT SEEN); Platelet Estimate ADEQ; Platelets, Giant FEW
[2020-01-02] MEDS ORDERED: NA CHLORIDE 0.9% 1,000 ML ONE (21:40)
--- NOTE | 2020-01-02 22:10 | EDPHYS ---
Physician Documentation [facility] Name: Jose M Jovel Age: 59 yrs Sex: Female : 1960 Arrival Date: 01/02/2020 Time: 19:11 Bed 7 Private MD: ED Physician Dexter Che HPI: 01/02 19:20 This 59 yrs old Female presents to ER via EMS with complaints of diarrhea, yohana weak, chest pain and sob. 19:20 The patient or guardian reports chest pain that is located primarily in the substernal yohana area. Onset: 5 day(s) ago. The patient presents with abdominal pain in the upper abdomen, in the lower abdomen. The patient complains of pain in the left low back, left mid back, right mid back and right low back. The pain does not radiate. Onset: The symptoms/episode began/occurred 5 day(s) ago. The patient presents to the emergency department with diarrhea. Historical: - Allergies: 19:17 No Known Allergies; jd3 - Home Meds: 19:17 amlodipine 5 mg tab 1 tab once daily [Active]; bupropion HCl 300 mg Oral Tb24 1 tab jd3 once daily [Active]; gabapentin 600 mg Oral tab 1 tab 3 times per day [Active]; lisinopril 20 mg Oral tab 1 tab once daily [Active]; nortriptyline 75 mg Oral cap 1 cap once daily [Active]; sertraline 100 mg Oral tab 1 tab once daily [Active]; tramadol 50 mg Oral tab twice a day [Active]; trazodone 100 mg Oral tab twice a day [Active]; Zetia 10 mg Oral tab 1 tab once daily [Active]; Metformin Oral [Active]; - PMHx: 19:17 Chronic pain; Hypertension; TIA; Diabetes - NIDDM; Anxiety; jd3 - PSHx: 19:17 bulging disc; left ankle; jd3 - Immunization history:: Adult Immunizations up to date. - Coronavirus screen:: The patient has NOT traveled to [place] in the past 14 days. The patient has NOT had contact with known/suspected case of Coronavirus? Proceed with normal triage procedures. - Social history:: Smoking status: Patient/guardian denies using tobacco, the patient reports quitting approximately 3 years ago. - Family history:: not pertinent. - Ebola Screening: : Patient negative for fever greater than or equal to 101.5 degrees Fahrenheit, and additional compatible Ebola Virus Disease symptoms. ROS: 19:20 Constitutional: Negative for fever, chills, and weight loss, Eyes: Negative for injury, yohana pain, redness, and discharge, ENT: Negative for injury, pain, and discharge, Neck: Negative for injury, pain, and swelling, Back: Negative for injury and pain, : Negative for injury, bleeding, discharge, and swelling, MS/Extremity: Negative for injury and deformity, Skin: Negative for injury, rash, and discoloration, Neuro: Negative for headache, weakness, numbness, tingling, and seizure, Psych: Negative for depression, anxiety, suicide ideation, homicidal ideation, and hallucinations, Allergy/Immunology: Negative for hives, rash, and allergies, Endocrine: Negative for neck swelling, polydipsia, polyuria, polyphagia, and marked weight changes. 19:20 Cardiovascular: Positive for chest pain. 19:20 Respiratory: Positive for cough. 19:20 Abdomen/GI: Positive for abdominal pain, diarrhea, abdominal distension. Exam: 19:20 Constitutional: This is a well developed, well nourished patient who is awake, alert, yohana and in no acute distress. Head/Face: Normocephalic, atraumatic. Eyes: Pupils equal round and reactive to light, extra-ocular motions intact. Lids and lashes normal. Conjunctiva and sclera are non-icteric and not injected. Cornea within normal limits. Periorbital areas with no swelling, redness, or edema. Neck: Trachea midline, no thyromegaly or masses palpated, and no cervical lymphadenopathy. Supple, full range of motion without nuchal rigidity, or vertebral point tenderness. No Meningismus. Chest/axilla: Normal chest wall appearance and motion. Nontender with no deformity. No lesions are appreciated. Respiratory: Lungs have equal breath sounds bilaterally, clear to auscultation and percussion. No rales, rhonchi or wheezes noted. No increased work of breathing, no retractions or nasal flaring. Abdomen/GI: Soft, non-tender, with normal bowel sounds. No distension or tympany. No guarding or rebound. No evidence of tenderness throughout. Back: No spinal tenderness. No costovertebral tenderness. Full range of motion. Female : Normal external genitalia. Skin: Warm, dry with normal turgor. Normal color with no rashes, no lesions, and no evidence of cellulitis. MS/ Extremity: Pulses equal, no cyanosis. Neurovascular intact. Full, normal range of motion. Neuro: Awake and alert, GCS 15, oriented to person, place, time, and situation. Cranial nerves II-XII grossly intact. Motor strength 5/5 in all extremities. Sensory grossly intact. Cerebellar exam normal. Normal gait. Psych: Awake, alert, with orientation to person, place and time. Behavior, mood, and affect are within normal limits. 19:20 ENT: Mouth: Oral mucosa: dry. 19:20 Cardiovascular: Rate: tachycardic, Rhythm: regular, Pulses: Pulses are 4+ in bilateral radial, brachial, femoral, popliteal, posterior tibial and and dorsalis pedis arteries.. Heart sounds: normal, normal S1and S2, no S3 or S4, no murmur, no rub, no gallop, Edema: is not appreciated, JVD: is not appreciated. 19:20 Respiratory: mild respiratory distress is noted, Respirations: normal, Breath sounds: are clear throughout, Respiratory rate: 20 19:24 Musculoskeletal/extremity: DVT Exam: No signs of deep vein thrombosis. no pain, no yohana swelling, no tenderness, negative Homans' sign noted on exam, no appreciated bluish discoloration, no erythema, no increased warmth. Vital Signs: 19:17 BP 95 / 72; Pulse 135; Resp 20 S; Temp 98.4(O); Pulse Ox 99% on R/A; Weight 90.72 kg jd3 (R); Height 5 ft. 3 in. (160.02 cm) (R); Pain 10/10; 20:25 BP 114 / 99; Pulse 120; Resp 20 S; Pulse Ox 98% on R/A; Pain 10/10; jd3 22:47 BP 95 / 75; Pulse 118; Resp 18 S; Pulse Ox 95% on R/A; Pain 8/10; jd3 23:44 BP 98 / 60; Pulse 110; Resp 18 S; Pulse Ox 98% on R/A; Pain 9/10; jd3 01/03 00:30 BP 100 / 65; Pulse 107; Resp 18 S; Pulse Ox 99% on R/A; jd3 01/02 19:17 Body Mass Index 35.43 (90.72 kg, 160.02 cm) jd3 Procedures: 01/02 22:07 Peripheral line: by aseptic technique a peripheral line was placed in the left external [facility] jugular vein. MDM: 19:11 Patient medically screened. [facility] 19:22 Data reviewed: vital signs, nurses notes, lab test result(s), EKG, radiologic studies, [facility] CT scan, plain films. 01/02 19:18 Order name: Basic Metabolic Panel [facility] 01/02 19:18 Order name: CBC with Diff [facility] 01/02 19:18 Order name: LFT's [facility] 01/02 19:18 Order name: Magnesium [facility] 01/02 19:18 Order name: NT PRO-BNP [facility] 01/02 19:18 Order name: PT-INR [facility] 01/02 19:18 Order name: Troponin (emerg Dept Use Only) [facility] 01/02 19:18 Order name: Lipase [facility] 01/02 19:19 Order name: Blood Culture Adult (2) [facility] 01/02 19:19 Order name: ABG [facility] 01/02 19:19 Order name: Stool Culture [facility] 01/02 19:19 Order name: Fecal Leukocyte Stain [facility] 01/02 19:23 Order name: Lactate [facility] 01/02 19:55 Order name: ABG Arterial Blood Gas; Complete Time: 21:03 EDIN 01/02 19:18 Order name: XRAY Chest (1 view) [facility] 01/02 19:18 Order name: CT Stone Protocol [facility] 01/02 20:45 Order name: CBC with Automated Diff; Complete Time: 21:30 EDIN 01/02 20:54 Order name: Basic Metabolic Panel; Complete Time: 21:03 EDIN 01/02 20:55 Order name: Liver (Hepatic) Function; Complete Time: 21:03 EDIN 01/02 20:55 Order name: Troponin (Emerg Dept Use Only); Complete Time: 21:03 EDIN 01/02 20:55 Order name: NT PRO-BNP; Complete Time: 21:03 EDIN 01/02 20:55 Order name: Magnesium; Complete Time: 21:03 EDIN 01/02 20:55 Order name: Lipase; Complete Time: 21:03 EDIN 01/02 21:12 Order name: Lactate; Complete Time: 21:30 EDIN 01/02 21:29 Order name: Manual Differential; Complete Time: 21:30 EDIN 01/02 21:55 Order name: RAD; Complete Time: 21:56 [facility] 01/02 22:37 Order name: Protime (+INR); Complete Time: 23:48 EDIN 01/02 23:34 Order name: Urinalysis [facility] 01/02 23:34 Order name: Urine Microscopic Only EDIN 01/02 19:18 Order name: EKG; Complete Time: 19:24 [facility] 01/02 19:18 Order name: Cardiac monitoring; Complete Time: 19:20 [facility] 01/02 19:18 Order name: EKG - Nurse/Tech; Complete Time: 19:20 [facility] 01/02 19:18 Order name: IV Saline Lock; Complete Time: 20:11 [facility] 01/02 19:18 Order name: Labs collected and sent; Complete Time: 20:11 [facility] 01/02 19:18 Order name: O2 Per Protocol; Complete Time: 19:20 [facility] 01/02 19:18 Order name: O2 Sat Monitoring; Complete Time: 19:20 [facility] 01/02 19:18 Order name: Urine Dipstick-Ancillary (obtain specimen); Complete Time: 22:37 [facility] 01/02 21:12 Order name: EKG; Complete Time: 21:43 [facility] 01/02 21:12 Order name: EKG - Nurse/Tech; Complete Time: 22:38 [facility] Administered Medications: 20:12 Drug: fentaNYL (PF) 25 mcg Route: IVP; Site: left antecubital; jd3 21:10 Follow up: Response: No adverse reaction jd3 20:13 Drug: Zofran 4 mg Route: IVP; Site: left antecubital; jd3 21:10 Follow up: Response: No adverse reaction jd3 20:35 Drug: NS 0.9% 1000 ml Route: IV; Rate: 1 bolus; Site: left antecubital; [facility] 01/03 01:00 Follow up: Response: No adverse reaction; IV Status: Completed infusion; IV Intake: jd3 1000ml 01/02 20:35 Drug: NS 0.9% 1000 ml Route: IV; Rate: 1 bolus; Site: left antecubital; jd3 01/03 01:00 Follow up: Response: No adverse reaction; IV Status: Completed infusion; IV Intake: jd3 1000ml 01/02 20:35 Drug: Demerol 25 mg Route: IVP; Site: left antecubital; jd3 21:35 Follow up: Response: No adverse reaction jd3 21:55 Drug: Demerol 25 mg Route: IVP; Site: left antecubital; jd3 22:55 Follow up: Response: No adverse reaction; RASS: Alert and Calm (0) jd3 22:00 Drug: NS 0.9% 1000 ml Route: IV; Rate: 1 bolus; Site: left antecubital; jd3 23:00 Follow up: Response: No adverse reaction; IV Status: Completed infusion; IV Intake: jd3 1000ml 22:34 Drug: Rocephin 1 grams Route: IV; Rate: per protocol; Site: left antecubital; jd3 23:30 Follow up: Response: No adverse reaction; IV Status: Completed infusion jd3 23:57 Drug: Demerol 25 mg Route: IVP; Site: left jugular; jd3 01/03 00:55 Follow up: Response: No adverse reaction; RASS: Alert and Calm (0) jd3 Disposition: 01/02/20 22:09 Hospitalization ordered by Real Villalpando for Inpatient Admission. Preliminary diagnosis are Dehydration, Diarrhea, unspecified, Elevated white blood cell count, Bandemia, Type 2 diabetes mellitus, Urinary tract infection, site not specified. - Bed requested for Telemetry/MedSurg (Inpatient). - Status is Inpatient Admission. jd3 - Condition is Stable. - Problem is new. - Symptoms have improved. Signatures: Dispatcher [employer] EDMS Dexter Che MD MD cha Garcia, Cindy, RN RN Navi Mcclain RN RN jd3 Corrections: (The following items were deleted from the chart) 01/02 22:48 22:09 Hospitalization Ordered by Real Villalpando for Inpatient Admission. Preliminary diagnosis is Dehydration; Diarrhea, unspecified; Elevated white blood cell count; Bandemia; Type 2 diabetes mellitus. Bed requested for Telemetry/MedSurg (Inpatient). Status is Inpatient Admission. Condition is Stable. Problem is new. Symptoms have improved. yohana 23:49 22:48 01/02/2020 22:09 Hospitalization Ordered by Real Villalpando for Inpatient [facility] Admission. Preliminary diagnosis is Dehydration; Diarrhea, unspecified; Elevated white blood cell count; Bandemia; Type 2 diabetes mellitus. Bed requested for Telemetry/MedSurg (Inpatient). Status is Inpatient Admission. Condition is Stable. Problem is new. Symptoms have improved. cg 01/03 01:04 01/02 23:49 01/02/2020 22:09 Hospitalization Ordered by Real Villalpando for Inpatient jd3 Admission. Preliminary diagnosis is Dehydration; Diarrhea, unspecified; Elevated white blood cell count; Bandemia; Type 2 diabetes mellitus; Urinary tract infection, site not specified. Bed requested for Telemetry/MedSurg (Inpatient). Status is Inpatient Admission. Condition is Stable. Problem is new. Symptoms have improved. yohana
--- NOTE | 2020-01-02 22:10 | ER ---
Nurse's Notes [facility] Name: Jose M Jovel Age: 59 yrs Sex: Female : 1960 Arrival Date: 01/02/2020 Time: 19:11 Bed 7 Private MD: Diagnosis: Dehydration;Diarrhea, unspecified;Elevated white blood cell count;Bandemia;Type 2 diabetes mellitus;Urinary tract infection, site not specified Presentation: 01/02 19:11 Presenting complaint: EMS states: "the patient called us and was reporting a possible jd3 UTI, diarrhea, kidney pain, anxiety, and new onset chest pain. the pt reported starting metformin recently. ". Transition of care: patient was not received from another setting of care. Onset of symptoms was January 02, 2020. Risk Assessment: Do you want to hurt yourself or someone else? Patient reports no desire to harm self or others. Initial Sepsis Screen: Does the patient meet any 2 criteria? HR > 90 bpm. No. Patient's initial sepsis screen is negative. Does the patient have a suspected source of infection? No. Patient's initial sepsis screen is negative. Care prior to arrival: Glucose check: 214. 19:11 Method Of Arrival: EMS: [facility] jd3 19:11 Acuity: GUSTABO 3 jd3 Historical: - Allergies: 19:17 No Known Allergies; jd3 - Home Meds: 19:17 amlodipine 5 mg tab 1 tab once daily [Active]; bupropion HCl 300 mg Oral Tb24 1 tab jd3 once daily [Active]; gabapentin 600 mg Oral tab 1 tab 3 times per day [Active]; lisinopril 20 mg Oral tab 1 tab once daily [Active]; nortriptyline 75 mg Oral cap 1 cap once daily [Active]; sertraline 100 mg Oral tab 1 tab once daily [Active]; tramadol 50 mg Oral tab twice a day [Active]; trazodone 100 mg Oral tab twice a day [Active]; Zetia 10 mg Oral tab 1 tab once daily [Active]; Metformin Oral [Active]; - PMHx: 19:17 Chronic pain; Hypertension; TIA; Diabetes - NIDDM; Anxiety; jd3 - PSHx: 19:17 bulging disc; left ankle; jd3 - Immunization history:: Adult Immunizations up to date. - Coronavirus screen:: The patient has NOT traveled to [place] in the past 14 days. The patient has NOT had contact with known/suspected case of Coronavirus? Proceed with normal triage procedures. - Social history:: Smoking status: Patient/guardian denies using tobacco, the patient reports quitting approximately 3 years ago. - Family history:: not pertinent. - Ebola Screening: : Patient negative for fever greater than or equal to 101.5 degrees Fahrenheit, and additional compatible Ebola Virus Disease symptoms. Screenin:19 Abuse screen: Denies threats or abuse. Nutritional screening: No deficits noted. jd3 Tuberculosis screening: No symptoms or risk factors identified. Fall Risk Ambulatory Aid- None/Bed Rest/Nurse Assist (0 pts). Gait- Normal/Bed Rest/Wheelchair (0 pts) Mental Status- Oriented to own ability (0 pts). Total Silveira Fall Scale indicates No Risk (0-24 pts). Assessment: 20:13 General: Appears in no apparent distress. uncomfortable, well groomed, Behavior is jd3 cooperative, anxious, crying, restless, Reports feeling ill for > 3 days. Pain: Complains of pain in back, chest and abdomen Pain currently is 10 out of 10 on a pain scale. Quality of pain is described as heavy, pressure, sharp, throbbing. Neuro: Level of Consciousness is awake, alert, obeys commands, Oriented to person, place, time, situation. Cardiovascular: Reports chest pain, shortness of breath, Heart tones S1 S2 present Capillary refill < 3 seconds Patient's skin is warm and dry. Rhythm is sinus tachycardia. Respiratory: Reports shortness of breath at rest Airway is patent Trachea midline Respiratory effort is even, unlabored, Respiratory pattern is regular, symmetrical, Breath sounds are clear bilaterally. GI: Abdomen is round non-distended, Bowel sounds present X 4 quads. Abd is soft and non tender X 4 quads. Reports diarrhea, hernia present on mid abdominal area. : Reports burning with urination, cramping, flank(s) inability to void, since states" feels like I have to urinate but nothing has been coming out for 5 days now" urgency, urinary frequency. EENT: No signs and/or symptoms were reported regarding the EENT system. Derm: Skin is intact, is healthy with good turgor, Skin is dry, Skin is normal, Skin temperature is warm bilateral feet with purple discoloration. Musculoskeletal: Circulation, motion, and sensation intact. Range of motion: intact in all extremities. 21:30 Reassessment: Patient appears in no apparent distress at this time. No changes from jd3 previously documented assessment. Patient and/or family updated on plan of care and expected duration. Pain level reassessed. Patient is alert, oriented x 3, equal unlabored respirations, skin warm/dry/pink. 22:47 Reassessment: Patient appears in no apparent distress at this time. Patient and/or jd3 family updated on plan of care and expected duration. Pain level reassessed. Patient is alert, oriented x 3, equal unlabored respirations, skin warm/dry/pink. pt reporting some relief from pain medication. reports continued back pain. provider notified. 23:44 Reassessment: Patient appears in no apparent distress at this time. No changes from jd3 previously documented assessment. Patient and/or family updated on plan of care and expected duration. Pain level reassessed. Patient is alert, oriented x 3, equal unlabored respirations, skin warm/dry/pink. 01/03 00:06 Reassessment: Patient appears in no apparent distress at this time. Patient and/or jd3 family updated on plan of care and expected duration. Pain level reassessed. Patient is alert, oriented x 3, equal unlabored respirations, skin warm/dry/pink. report given to Chris LOPEZ. 01:00 Reassessment: Patient appears in no apparent distress at this time. Patient and/or jd3 family updated on plan of care and expected duration. Pain level reassessed. Patient is alert, oriented x 3, equal unlabored respirations, skin warm/dry/pink. Patient states feeling better. Vital Signs: 01/02 19:17 BP 95 / 72; Pulse 135; Resp 20 S; Temp 98.4(O); Pulse Ox 99% on R/A; Weight 90.72 kg j (R); Height 5 ft. 3 in. (160.02 cm) (R); Pain 10/10; 20:25 BP 114 / 99; Pulse 120; Resp 20 S; Pulse Ox 98% on R/A; Pain 10/10; jd3 22:47 BP 95 / 75; Pulse 118; Resp 18 S; Pulse Ox 95% on R/A; Pain 8/10; jd3 23:44 BP 98 / 60; Pulse 110; Resp 18 S; Pulse Ox 98% on R/A; Pain 9/10; jd3 01/03 00:30 BP 100 / 65; Pulse 107; Resp 18 S; Pulse Ox 99% on R/A; jd3 01/02 19:17 Body Mass Index 35.43 (90.72 kg, 160.02 cm) jd3 ED Course: 01/02 19:11 Patient arrived in ED. jd3 19:11 Navi Mcclain RN is Primary Nurse. jd3 19:11 Dexter Che MD is Attending Physician. yohana 19:15 Triage completed. jd3 19:18 Arm band placed on. EKG completed in triage. Results shown to MD. jd3 19:19 Patient has correct armband on for positive identification. Placed in gown. Bed in low jd3 position. Call light in reach. Side rails up X2. 20:05 Initial lab(s) drawn, by me, sent to lab. First set of blood cultures drawn by me. aa1 Inserted saline lock: 22 gauge in left antecubital area, using aseptic technique. Blood collected. 20:12 Radiology exam delayed due to pending iv for pain meds. bq 22:08 Real Villalpando is Hospitalizing Provider. yohana 22:30 Inserted saline lock: 18 gauge in left EJ, using aseptic technique. Blood collected. jd3 placed by Dr. Che. 01/03 00:00 No provider procedures requiring assistance completed. Patient admitted, IV remains in jd3 place. Administered Medications: 01/02 20:12 Drug: fentaNYL (PF) 25 mcg Route: IVP; Site: left antecubital; jd3 21:10 Follow up: Response: No adverse reaction jd3 20:13 Drug: Zofran 4 mg Route: IVP; Site: left antecubital; jd3 21:10 Follow up: Response: No adverse reaction jd3 20:35 Drug: NS 0.9% 1000 ml Route: IV; Rate: 1 bolus; Site: left antecubital; jd3 01/03 01:00 Follow up: Response: No adverse reaction; IV Status: Completed infusion; IV Intake: jd3 1000ml 01/02 20:35 Drug: NS 0.9% 1000 ml Route: IV; Rate: 1 bolus; Site: left antecubital; jd3 01/03 01:00 Follow up: Response: No adverse reaction; IV Status: Completed infusion; IV Intake: jd3 1000ml 01/02 20:35 Drug: Demerol 25 mg Route: IVP; Site: left antecubital; jd3 21:35 Follow up: Response: No adverse reaction jd3 21:55 Drug: Demerol 25 mg Route: IVP; Site: left antecubital; jd3 22:55 Follow up: Response: No adverse reaction; RASS: Alert and Calm (0) jd3 22:00 Drug: NS 0.9% 1000 ml Route: IV; Rate: 1 bolus; Site: left antecubital; jd3 23:00 Follow up: Response: No adverse reaction; IV Status: Completed infusion; IV Intake: jd3 1000ml 22:34 Drug: Rocephin 1 grams Route: IV; Rate: per protocol; Site: left antecubital; jd3 23:30 Follow up: Response: No adverse reaction; IV Status: Completed infusion jd3 23:57 Drug: Demerol 25 mg Route: IVP; Site: left jugular; jd3 01/03 00:55 Follow up: Response: No adverse reaction; RASS: Alert and Calm (0) jd3 Intake: 01/02 23:00 IV: 1000ml; Total: 1000ml. jd3 01/03 01:00 IV: 1000ml; Total: 2000ml. jd3 01:00 IV: 1000ml; Total: 3000ml. jd3 Outcome: 01/02 22:09 Decision to Hospitalize by Provider. yohana 01/03 00:00 Condition: stable jd3 00:08 Admitted to Med/surg accompanied by tech, via stretcher, room 409, with chart, Report jd3 called to Chris LOPEZ 00:08 Instructed on the need for admit, Demonstrated understanding of instructions. 01:04 Patient left the ED. jd3 Signatures: Kesha Brown RN RN aa1 Dexter Che MD MD cha Quilty, Betty bq Davies, Jonathon, RN RN jjesus Corrections: (The following items were deleted from the chart) 00:00 01/02 19:11 Presenting complaint: EMS states: "the patient called us and was reporting jd3 a possible UTI, diahhria, kidney pain, anxiety, and new onset chest pain. the reported starting metformin recently. " jd3
[2020-01-02 22:21] LABS: Protime INR 1.09
--- NOTE | 2020-01-02 22:41 | P.HP ---
Certification for Inpatient Patient admitted to: Observation With expected LOS: <2 Midnights Practitioner: I am a practitioner with admitting privileges, knowledge of patient current condition, hospital course, and medical plan of care. Services: Services provided to patient in accordance with Admission requirements found in Title 42 Section 412.3 of the Code of Federal Regulations Patient History Date of Service: 01/02/20 Reason for admission: Diarrhea History of Present Illness: 59-year-old woman with a history of newly diagnosed diabetes mellitus presented to the ED with a complaint diarrhea of 5 days duration. Patient stated she started taking metformin only about a week ago. Symptoms associated with abdominal pain of onset today. Patient describes watery stools, no blood or mucus. She denied fever. She denied vomiting. She endorsed poor oral intake. She denied any recent antibiotic use. CT abdomen and pelvis in the ED is unremarkable. Her blood work shows acute renal failure. She also has severe leukocytosis along with increased hematocrit indicating hemoconcentration. Patient is admitted for further management. Allergies No Known Allergies Allergy (Verified 01/03/20 00:18) Home Medications: Ezetimibe [Zetia] 1 tab PO DAILY 02/26/18 Gabapentin 1 tab PO TID 02/26/18 Nortriptyline HCl [Pamelor] 1 tab PO DAILY 02/26/18 Sertraline [Zoloft*] 1 tab PO DAILY 02/26/18 Tramadol HCl [Ultram] 1 tab PO BID 02/26/18 Trazodone HCl 2 tab PO BEDTIME 02/26/18 buPROPion HCL [Bupropion Xl] 1 tab PO DAILY 02/26/18 lisinopriL [Prinivil*] 1 tab PO DAILY 02/26/18 Metoprolol Tartrate [Lopressor*] 25 mg PO BID 6AM 6PM #60 tab 03/03/18 - Past Medical/Surgical History Diabetic: No -: HTN -: High cholesterol -: Hernia -: herniated disc -: Chronic bk pain -: vertebretes 1 & 4 displaced -: Depression -: ulcer on esophagus -: sx to remove cyst on tail of pancrease -: Hernia Repair -: Edith -: lap Band and removal -: Splenectomy - Family History Mother -: Heart disease, Diabetes, Stroke - Social History Alcohol use: No CD- Drugs: No Caffeine use: Yes Review of Systems Other: Except as documented, all other systems reviewed and negative. Physical Examination - Physical Exam General: Alert, In no apparent distress, Oriented x3, Obese HEENT: PERRLA, Mucous membr. moist/pink, Sclerae nonicteric Neck: Supple, JVD not distended, No Thyromegaly Respiratory: Clear to auscultation bilaterally, Normal air movement Cardiovascular: No edema, Normal pulses, Regular rate/rhythm, Normal S1 S2 Gastrointestinal: Normal bowel sounds, Non-distended, Tenderness (Mild lower abdominal tenderness, no guarding or rebound tenderness.) Musculoskeletal: No swelling, No erythema Integumentary: No rashes Neurological: Normal speech, Normal strength at 5/5 x4 extr, Cranial nerves 3- 12 intact - Studies Laboratory Data (last 24 hrs) 01/02/20 20:05: WBC 24.0 H*, Hgb 17.3 H, Hct 53.8 H, Plt Count 436 H 01/02/20 20:05: Sodium 136, Potassium 4.1, BUN 18, Creatinine 1.95 H, Glucose 144 H, Magnesium 1.9, Total Bilirubin 0.8, AST 20, ALT 28, Alkaline Phosphatase 136 H, Lipase 101 Assessment and Plan - Problems (Diagnosis) (1) Acute colitis Current Visit: Yes Status: Acute (2) DM type 2 (diabetes mellitus, type 2) Current Visit: Yes Status: Acute (3) Acute renal failure Current Visit: Yes Status: Acute (4) Hypertension Onset Date: 09/13/14 Current Visit: No Status: Acute (5) Leukocytosis Onset Date: 09/13/14 Current Visit: No Status: Acute Qualifiers: - Plan Diarrhea could be related to metformin side effect. Admit to Medical floor Aggressive IV hydration with normal saline. Empiric IV Levaquin and Flagyl Hold metformin Monitor renal function and CBC Follow blood cultures. Check fecal leukocyte, check stool for C. diff. Insulin sliding scale for glucose management. Check TSH. - Advance Directives Does patient have a Living Will: No Does patient have a Durable POA for Healthcare: No
[2020-01-02 23:32] LABS: Urine Appearance CLOUDY; Urine Glucose NEGATIVE (NEG); Urine Specific Gravity 1.025 (1.005-1.030)
[2020-01-02 23:33] LABS: Urine Blood 2+ (NEG); Urine Color YELLOW; Urine Microscopic Reflex ORDER UMIC; Urine Protein 2+ (NEG); Urine pH 5.5 (5.0-7.0)
[2020-01-02 23:34] LABS: Urine Amorphous Sediment 2+ /HPF (NONE SEEN); Urine Bacteria >50 /HPF (<20); Urine Culture Reflex Order REFLEXED; Urine Mucus 2+ /HPF (NONE SEEN)
[2020-01-02 23:57] LABS: Urine Bilirubin POS (NEG)
[2020-01-03] MEDS ORDERED: ACETAMINOPHEN 500 MG TAB PO PRN (00:07)
[2020-01-03] MEDS ORDERED: Levofloxacin500mg IV 500 MG/100 ML BAG IV SCH (00:07)
[2020-01-03] MEDS ORDERED: Levofloxacin500mg IV 500 MG/100 ML BAG IV ONE (01:00)
[2020-01-03] MEDS ORDERED: Levofloxacin 250mg IV 250 MG/50 ML BAG IV SCH (01:00)
[2020-01-03] MEDS: MORPHINE 2 MG/ML SYR IV PRN ×3 (01:25→08:27)
[2020-01-03] MEDS: ONDANSETRON 4 MG/2 ML VIAL IV PRN ×2 (01:26→10:10)
[2020-01-03] MEDS: NA CHLORIDE 0.9% 1,000 ML IV SCH ×3 (01:31→16:52)
[2020-01-03] MEDS: HEPARIN 5000 UNIT/ML 1 ML VIAL SQ SCH ×3 (01:37→16:52)
[2020-01-03] MEDS: METRONIDAZOLE 500mg IVPB 500 MG/100 ML BAG IV SCH ×3 (02:47→16:52)
[2020-01-03 03:03] VITALS: BMI 35.4
[2020-01-03 05:55] LABS: Absolute Lymphocytes (CBC) 5.8 K/uL (0.7-4.9); Basophils % 1.2 % (0-1.3); Hematocrit 44.8 % (36.0-45.0); Lymphocytes % 29.1 % (15.3-44.8); MPV 10.7 fL (7.6-11.3); RBC Red Blood Cell Count 5.09 M/uL (3.86-4.86)
[2020-01-03 07:07] LABS: Albumin 3.1 g/dL (3.4-5.0); Magnesium 1.8 mg/dL (1.8-2.4); Potassium 3.8 mmol/L (3.5-5.1); Protein, Total 6.6 g/dL (6.4-8.2); Thyroid Stimulating Hormone 1.54 uIU/mL (0.360-3.740)
[2020-01-03] MEDS: INSULIN -REGULAR HUMAN 50 UNIT/0.5 ML ML SQ SCH ×4 (07:30→21:00)
--- NOTE | 2020-01-03 07:46 | EKG ---
Test Date: 2020-01-02 Test Time: 21:25:13 Tile Layer Supervisor: LENNIE MEASUREMENT RESULTS: Intervals: Rate: 120 IA: 140 QRSD: 80 QT: 334 QTc: 472 [place]: P: 62 IA: 140 QRS: 50 T: 90 INTERPRETIVE STATEMENTS: Sinus tachycardia Cannot rule out Anterior infarct, age undetermined Abnormal ECG Compared to ECG 01/02/2020 19:05:02 No significant changes Electronically Signed On 01-03-20 07:44:38 INSTRUMENTATION DESIGNER by Ventura Santiago
--- NOTE | 2020-01-03 07:46 | EKG ---
Test Date: 2020-01-02 Test Time: 19:05:02 [employer] MEASUREMENT RESULTS: Intervals: Rate: 129 VT: 112 QRSD: 82 QT: 404 QTc: 591 [place]: P: 54 VT: 112 QRS: 76 T: 67 INTERPRETIVE STATEMENTS: Sinus tachycardia Cannot rule out Anterior infarct, age undetermined Abnormal ECG Compared to ECG 07/07/2019 12:53:46 Myocardial infarct finding now present Electronically Signed On 01-03-20 07:44:41 GENERAL LABORER by Ventura Santiago
[2020-01-03] MEDS ORDERED: POTASSIUM CL SA 10 MEQ TAB PO ONE (09:00)
[2020-01-03] MEDS ORDERED: MAGNESIUM SULFATE 1 gm IVPB 1 GM/100 ML BAG IV ONE (09:00)
--- NOTE | 2020-01-03 11:03 | PN ---
Date of Progress Note: 01/03/2020 Subjective: Patient is seen and examined. Chart reviewed and case discussed with RN. Patient complaining of abdominal pain. Medications: List reviewed. Physical Examination: Vital Signs: Temperature 98.4, heart rate 106, blood pressure 107/64, respirations 18, O2 of 93% on room air. General: Awake, alert, oriented x3, in some mild distress, ill-appearing female , obese. CV: S1, S2. Sinus tachycardia. Peripheral pulses present. Respiratory: Moving air well bilaterally. No wheezing or stridor. Gastrointestinal: Abdomen is soft. Mild tenderness to palpation. No guarding or rigidity. Positive bowel sounds. Extremities: No clubbing, cyanosis, or edema. Neurologic: Nonfocal. Laboratory Data: Sodium 139, potassium 3.8, chloride 106, CO2 of 22, BUN 19, creatinine 1.94, glucose 154, lactate 1, calcium 8.1, phosphorus 3, magnesium 1.8. AST 153, ALT 76, alkaline phosphatase 161, albumin 3.1. TSH is 1.54. WBC 19.9, H and H 14.5 and 44.8, platelets 377, neutrophils 58%, no bands. Blood cultures pending. Stool culture is also pending. Assessment: A 59-year-old female with: 1. Acute colitis. CT scan of the abdomen shows no urolithiasis or urinary obstruction. No bowel inflammation or obstruction. Large left paracentral epigastric hernia contains fat and a loop of non-obstructed transverse colon. Possible left adnexal dermoid should be followed up with contrast enhanced pelvic MRI. If not surgically resected, pelvic ultrasound followup is recommended annually. We will continue with prophylactic antibiotics. White blood cell count slightly down, still very elevated at 19,000. 2. Acute cystitis with hematuria. We will follow up on urine culture. Cont Abx 3. Acute kidney injury. Baseline creatinine is normal from 10/2019. Continue with IV fluids. Monitor kidney function. Avoid NSAIDs. 4. Essential hypertension, stable. Continue home medications. 5. Intractable pain. Patient is still reporting pain despite morphine and will need to adjust pain medications. 6. Diabetes mellitus type 2. We will continue with sliding scale insulin. Monitor blood glucose levels. Plan: Continue to monitor. Follow up on culture results and stool studies. Adjust pain medications, likely discharge in the next 24 to 48 hours. SA/MODL Voice ID: [id number] Report ID: [id number]
[2020-01-03] MEDS: FENTANYL CITR 100 MCG/2 ML IV PRN ×3 (12:37→21:12)
--- NOTE | 2020-01-03 12:56 | P.CNS ---
Date of Consult: 01/03/20 Reason for Consult: CHRISTOPHER Chief Complaint: Diarrhea History of Present Illness: A 59-year-old woman with PMHX of newly Dx Dm, HTN, HLD , chronic back pain pt presented for abdominal pain, and diarrhea of 5days duration Pt was started on metformin 1wks before admission, then start having above symptoms she also noticed decreased UO , pt had NO urine out put since admission until this morning denied fever, chills, recent travel or sick contact takes NSAID occasionally in ER WBC 20, Cr 1.9 Physical exam general: AAOX3, in mild-moderate distress , obese Neck; Supple, No elevated JVD hear: RRR, normal S1,2 no murmur or rub Chest: CTAB, no rlaes or wheezes Abdomen: mild tenderness, +ve BS Extremities No edema or ulcer A/p CHRISTOPHER likely due to dehydration , baseline Cr 1.1 Cont IVF UA with +[address] no hydro will order US cont IVF will defer further serology W/u as Pt starts making urine cont to hold metfromin and AYSHA HTN controlled DM as per primary Colitis F/U stool results cont Abx improving now UTI cont Abx fu culture results Thanks for allowing me to participate in pt care Allergies No Known Allergies Allergy (Verified 01/03/20 00:18) Home Medications: Ezetimibe [Zetia] 1 tab PO DAILY 02/26/18 Gabapentin 1 tab PO TID 02/26/18 Nortriptyline HCl [Pamelor] 1 tab PO DAILY 02/26/18 Sertraline [Zoloft*] 1 tab PO DAILY 02/26/18 Tramadol HCl [Ultram] 1 tab PO BID 02/26/18 Trazodone HCl 2 tab PO BEDTIME 02/26/18 buPROPion HCL [Bupropion Xl] 1 tab PO DAILY 02/26/18 lisinopriL [Prinivil*] 1 tab PO DAILY 02/26/18 Metoprolol Tartrate [Lopressor*] 25 mg PO BID 6AM 6PM #60 tab 03/03/18 - Past Medical/Surgical History Diabetic: No -: HTN -: High cholesterol -: Hernia -: herniated disc -: Chronic bk pain -: vertebretes 1 & 4 displaced -: Depression -: ulcer on esophagus -: NIDDM -: Deteriorating disc disease -: Arthritis -: Cataracts aneudy eyes -: sx to remove cyst on tail of pancrease -: Hernia Repair -: Edith -: lap Band and removal -: Splenectomy - Family History Mother Medical History: Heart disease, Diabetes, Stroke - Social History Smoking Status: Current every day smoker Alcohol use: No CD- Drugs: No Caffeine use: Yes Place of Residence: Home Physical Examination Temp Pulse Resp BP Pulse Ox 97.5 F 105 H 18 125/62 91 01/03/20 12:00 01/03/20 12:00 01/03/20 12:00 01/03/20 12:00 01/03/20 12:00 Laboratory Data (last 24 hrs) 01/02/20 22:04: PT 12.8 H, INR 1.09 01/02/20 20:05: WBC 24.0 H*, Hgb 17.3 H, Hct 53.8 H, Plt Count 436 H 01/02/20 20:05: Sodium 136, Potassium 4.1, BUN 18, Creatinine 1.95 H, Glucose 144 H, Magnesium 1.9, Total Bilirubin 0.8, AST 20, ALT 28, Alkaline Phosphatase 136 H, Lipase 101
[2020-01-03] MEDS ORDERED: ALPRAZOLAM 0.5 MG TABLET PO ONE (14:07)
[2020-01-03 14:36] LABS: Urine Protein/Creatinine Ratio 0.26 ratio (<0.15)
[2020-01-03] MEDS: Levofloxacin 250mg IV 250 MG/50 ML BAG IV SCH (21:15)
--- NOTE | 2020-01-03 22:12 | RAD REPORT ---
EXAM DESCRIPTION: US - Renal Ultrasound-Complete - 01/03/2020 8:54 pm CLINICAL HISTORY: . Acute renal insufficiency COMPARISON: January 02, 2020 CT FINDINGS: The right kidney measures 12 cm with a normal echotexture. The left kidney measures 11 cm with a normal echotexture. Malrotation left kidney Hydronephrosis is not seen. No gross abnormality of bladder IMPRESSION: No acute abnormality displayed
[2020-01-03] MEDS: HYDROCODONE/APAP 5/325 MG TAB PO PRN (23:52)
[2020-01-04] MEDS: NA CHLORIDE 0.9% 1,000 ML IV SCH ×4 (00:07→16:07)
[2020-01-04] MEDS: HEPARIN 5000 UNIT/ML 1 ML VIAL SQ SCH ×3 (01:21→17:00)
[2020-01-04] MEDS: METRONIDAZOLE 500mg IVPB 500 MG/100 ML BAG IV SCH ×3 (01:21→17:00)
[2020-01-04] MEDS: FENTANYL CITR 100 MCG/2 ML IV PRN ×3 (01:22→21:23)
[2020-01-04] MEDS ORDERED: ALPRAZOLAM 0.5 MG TABLET PO ONE (02:19)
[2020-01-04] MEDS: PANTOPRAZOLE 40MG TABLET PO SCH (05:14)
[2020-01-04] MEDS: HYDROCODONE/APAP 5/325 MG TAB PO PRN ×2 (05:18→09:19)
[2020-01-04 06:02] LABS: Magnesium 1.8 mg/dL (1.8-2.4)
[2020-01-04] MEDS ORDERED: MAGNESIUM SULFATE 1 gm IVPB 1 GM/100 ML BAG IV ONE (07:30)
[2020-01-04] MEDS: INSULIN -REGULAR HUMAN 50 UNIT/0.5 ML ML SQ SCH ×4 (07:30→21:28)
[2020-01-04 09:30] LABS: Absolute Lymphocytes (CBC) 4.5 K/uL (0.7-4.9); Basophils % 1.2 % (0-1.3); Hematocrit 47.8 % (36.0-45.0); Lymphocytes % 25.8 % (15.3-44.8); MPV 10.7 fL (7.6-11.3); RBC Red Blood Cell Count 5.38 M/uL (3.86-4.86)
--- NOTE | 2020-01-04 12:12 | RAD REPORT ---
EXAM DESCRIPTION: CT - Stone Protocol - 01/02/2020 11:03 pm CLINICAL HISTORY: 59 years Female ABD PAIN TECHNIQUE: Contiguous axial images obtained through the abdomen and pelvis without IV contrast. Pablo nal and sagittal reformatted images provided. This CT exam was performed according to our departmental dose-optimization program, which includes on e or more of the following dose reduction techniques: automated exposure control, adjustment of the m A and/or kV according to patient size, and/or use of iterative reconstruction technique. COMPARISON: No prior exams provided for comparison. FINDINGS: There are no renal, ureteral, or bladder calculi. There is no hydronephrosis or perinephri c stranding on either side. 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 Normal uterus, right adnexa, and urinary bladder. Possible fat-containing lesion in the left adnexa measuring up to 2.2 cm. The lung bases are clear. There is a large left paracentral epigastric hernia containing peritoneal fat and a segment of the tr ansverse colon. There is no bowel inflammation, obstruction, pneumatosis, free intraperitoneal air, a bscess, or ascites. Normal appendix. There is an additional small fat-containing right epigastric hernia. Steatosis of the liver, which is mildly enlarged without focal lesion. Prior cholecystectomy without biliary dilatation. Prior splenectomy. Nonspecific nodular thickening of the left adrenal gland. Normal right adrenal gland. Atherosclerosis without abdominal aortic aneurysm or retroperitoneal hemorrhage. Severe chronic facet arthrosis at L4-L5. Severe chronic degenerative disc disease at L5-S1. No acute fracture in the lumbar spine or pelvis. Biliary tree, gallbladder, pancreas, spleen, adrenal glands, kidneys, urinary bladder, and osseous structures are normal. IMPRESSION: No urolithiasis or urinary obstruction. No bowel inflammation or obstruction. Large left paracentral epigastric hernia contains fat and a loo p of nonobstructed transverse colon. Possible left adnexal dermoid should be followed up with contrast-enhanced pelvic MRI. If not surgica lly resected, pelvic ultrasound follow-up is recommended annually. Electronically signed by: Maeve Hong MD 01/02/2020 9:37 PM SUPERVISOR TUBING Due to temporary technical issues with the PACS/Fluency reporting system, reports are being signed by the in house radiologist as a courtesy to ensure prompt reporting. The interpreting radiologist is f ully responsible for the content of the report.
[2020-01-04] MEDS: TRAMADOL HCL 50 MG TAB PO SCH ×2 (13:26→20:31)
[2020-01-04] MEDS: GABAPENTIN 300 MG CAP PO SCH ×2 (13:26→20:31)
[2020-01-04] MEDS: clonazePAM 1 MG TAB PO SCH (13:26)
--- NOTE | 2020-01-04 14:55 | PN ---
Date of Progress Note: 01/04/2020 Subjective: Patient seen and examined. Chart reviewed and case discussed with RN. Patient is still complaining of abdominal pain, back pain, and shoulder pain. Still having multiple episodes of diarrhea. Case discussed with Dr. Mendez. Medications List: Reviewed. Physical Examination: Vital Signs: Temperature 96.9, heart rate 100, blood pressure 122/72, respirations 16, O2 saturation of 90% on room air. General: Awake, alert, oriented x3. Ill-appearing obese female. CV: S1, S2. Regular rate and rhythm. Peripheral pulses present. Respiratory: Moving air well bilaterally. No wheezing or stridor. No use of accessory muscles. Gastrointestinal: Abdomen is soft. Tenderness to palpation in the epigastric region. No rebound or guarding. Positive bowel sounds. Extremities: No clubbing, cyanosis, or edema. Neurologic: Nonfocal. Laboratory Data: Sodium 141, potassium 4, chloride 111, CO2 of 23, BUN 12, creatinine 1.17, glucose 125, calcium 8.3, magnesium 1.8. WBC 17.3, H and H 15.2 and 47.8, platelets 402, neutrophils 61%. Blood cultures, no growth to date. Urine culture growing out 4+ gram-negative rods. Stool culture still pending. Imaging Studies: Renal ultrasound shows no acute abnormality. Assessment: A 59-year-old female with: 1. Acute colitis. We will continue with IV antibiotics prophylactically. GI has been consulted. White blood cell count still elevated. Still having diarrhea. We will rule out Clostridium difficile. 2. Acute kidney injury. Creatinine is normalized. Continue monitoring with IV fluids. Monitor kidney function. Appreciate Nephrology recommendations. Avoid NSAIDs. 3. Acute cystitis with hematuria. Continue with urine culture. Urine culture growing out gram-negative rods. We will follow up on ID and sensitivity. 4. Essential hypertension, stable. 5. Intractable pain. Patient's pain medications switched from morphine to fentanyl. We will resume p.o. pain medications from home and wean down from fentanyl. 6. Diabetes mellitus type 2. Continue with sliding scale insulin. We will monitor blood glucose levels. Plan: Discharge in the next 24 to 48 hours depending on clinical response. Follow up with GI recommendations. /ZULEYKA Voice ID: [id number] Report ID: [id number] MTDD
[2020-01-04] MEDS: ATORVASTATIN 10 MG TAB PO SCH (20:32)
[2020-01-04] MEDS: TRAZODONE 50 MG TABLET PO SCH (20:32)
[2020-01-04] MEDS: NORTRIPTYLINE HCL 25 MG CAP PO SCH (20:33)
[2020-01-04] MEDS: Levofloxacin 250mg IV 250 MG/50 ML BAG IV SCH (20:33)
[2020-01-04] MEDS ORDERED: MAGNES/ALUMIN/SIMET 30ML UCUP PO ONE (21:04)
--- NOTE | 2020-01-04 22:16 | PN ---
Date of Progress Note: 01/04/2020 Chief Complaint: Acute on chronic kidney injury. History Of Present Illness: Patient has multiple medical problems including history of diabetes mellitus, hypertension, chronic back pain. She presented to the hospital because of diarrhea of 5 days duration. Patient apparently was taking metformin and was started on metformin 1 week admission. Patient noted decreased urinary output. Denies fevers, chills. Occasionally patient takes nonsteroidal anti-inflammatory medication. On arrival to the hospital, white count was elevated up to 20,000 and creatinine was 1.9. Patient is admitted to the hospital for acute kidney injury. Baseline creatinine is 1.1. Patient was started on IV fluids. Urine output is somewhat improving. Patient was found to have proteinuria and positive blood on UA screen. Review of Systems: Patient denies PND or orthopnea. Physical Examination: Lungs: Few crackles at bases. Heart: S1, S2. Abdomen: Soft, benign. Extremities: No edema. Laboratory Data: WBC 17.3, hemoglobin 15.2, platelet count is 402,000. Chemistry shows sodium 141, potassium 4.0, chloride 111, CO2 23, BUN 12, creatinine 1.17, glucose 125, calcium 8.3. Impression And Plan: 1. Acute kidney injury. Serum creatinine improved from 1.95 to 1.17. Patient developed prerenal azotemia, nonoliguric ATN, and BUN is improving from 19 to 20. There is no evidence of metabolic acidosis. Today bicarbonate is 23. On arrival to the hospital, bicarbonate was 20. Patient will continue IV fluids and plan is to adjust fluids according to blood work results. 2. Hypovolemia. Continue IV hydration. 3. Acute kidney injury. Patient was evaluated for possible obstructive uropathy and ultrasound did not show hydronephrosis, right kidney is 12 cm in size and left kidney is 11 cm in length. Malrotation of the left kidney is present, although there is no hydronephrosis. No gross abnormalities of the bladder. Patient will continue IV fluids. Patient was found to have proteinuria and plan is to monitor proteinuria, recheck lab work, and urine test. Patient was found to have urinary tract infection and patient will continue antibiotics. I spent total 36 min including 25 min to coordinate care plan. AYSE/ZULEYKA Voice ID: [id number] Report ID: [id number] [facility]
[2020-01-05] MEDS: clonazePAM 1 MG TAB PO SCH ×4 (00:05→23:30)
[2020-01-05] MEDS: HEPARIN 5000 UNIT/ML 1 ML VIAL SQ SCH ×3 (00:05→17:33)
[2020-01-05] MEDS: METRONIDAZOLE 500mg IVPB 500 MG/100 ML BAG IV SCH ×2 (00:06→11:40)
[2020-01-05] MEDS: NA CHLORIDE 0.9% 1,000 ML IV SCH ×3 (00:07→08:07)
[2020-01-05] MEDS: HYDROCODONE/APAP 5/325 MG TAB PO PRN ×2 (03:03→15:09)
[2020-01-05 03:42] LABS: Bilirubin Total 0.4 mg/dL (0.2-1.0); Magnesium 1.6 mg/dL (1.8-2.4)
[2020-01-05] MEDS: PANTOPRAZOLE 40MG TABLET PO SCH (05:37)
[2020-01-05] MEDS ORDERED: MAGNESIUM SULFATE 1 gm IVPB 1 GM/100 ML BAG IV ONE (06:00)
[2020-01-05] MEDS: INSULIN -REGULAR HUMAN 50 UNIT/0.5 ML ML SQ SCH ×4 (07:30→21:46)
--- NOTE | 2020-01-05 08:42 | EKG ---
Test Date: 2020-01-04 Test Time: 20:45:45 Fiber Optic Technician: RT MEASUREMENT RESULTS: Intervals: Rate: 106 IL: 148 QRSD: 86 QT: 356 QTc: 472 [place]: P: 53 IL: 148 QRS: 9 T: 80 INTERPRETIVE STATEMENTS: Sinus tachycardia Cannot rule out Anterior infarct, age undetermined Abnormal ECG Compared to ECG 01/02/2020 21:25:13 No significant changes Electronically Signed On 01-05-20 08:41:00 SDE by Ventura Santiago
[2020-01-05] MEDS ORDERED: lisinopriL 20 MG TAB PO SCH (09:00)
[2020-01-05] MEDS: EZETIMIBE 10 MG TAB PO SCH (11:37)
[2020-01-05] MEDS: GABAPENTIN 300 MG CAP PO SCH ×3 (11:38→21:45)
[2020-01-05] MEDS: TRAMADOL HCL 50 MG TAB PO SCH ×3 (11:38→21:45)
[2020-01-05] MEDS: BUPROPION HCL XL 150 MG TAB PO SCH (11:39)
--- NOTE | 2020-01-05 13:24 | P.PN ---
Subjective Date of Service: 01/05/20 Primary Care Provider: Dr. Small Chief Complaint: Diarrhea Subjective: Improving (Less pain to the abdomen. No nauseam vomiting. Tolerating diet.) Physical Examination - Vital Signs Temperature: 97.8 F Blood Pressure: 130/69 Pulse: 117 Respirations: 18 Pulse Ox (%): 92 - Physical Exam General: Alert, In no apparent distress, Oriented x3, Cooperative HEENT: Atraumatic Neck: Supple Respiratory: Clear to auscultation bilaterally, Normal air movement Cardiovascular: Abnormal pulses (Mild tachycardia) Gastrointestinal: Normal bowel sounds, Soft and benign, Non-distended, No tenderness, No masses, No rebound, No guarding Musculoskeletal: No erythema, No tenderness, No warmth Integumentary: No tenderness/swelling, No erythema, No warmth, No cyanosis Neurological: Normal speech, Normal strength at 5/5 x4 extr, Normal tone, Normal affect - Studies Microbiology Data (last 24 hrs): 01/02/20 22:15 Catheterized Urine [place] Count - Final >100,000 CFU/ML. 01/02/20 22:15 Catheterized Urine - Final Escherichia Coli Medications List Reviewed: Yes Assessment & Plan Discharge Plan: Home Plan to discharge in: 24 Hours Physician Review Additional Text: Impression: Acute colitis complicated with UTI, urine culture positive for E coli Acute renal injury likely from dehydration Hypertension Diabetes mellitus type 2 Chronic pain Depression Hyperlipidemia Left paracentral hernia Suspect left adnexal dermoid Plan: Acute colitis complicated with UTI, urine culture positive for E coli: Antibiotics adjusted to oral medication. Patient on Levaquin and Flagyl. Will provide lactobacillus. Encourage ambulation. Continue IV fluids. Encourage oral intake. Awaiting C diff culture. Anticipate improvement over the next 24 hr. Likely discharge in the next 24 hr with clinical improvement. Acute renal injury likely from dehydration: Will decrease IV fluids. Encourage oral intake. Ambulate. Hypertension: Continue medication. Will monitor and adjust appropriately. Diabetes mellitus type 2: Continue Accu-Cheks and sliding scale. Chronic pain: Continue medication Depression: Continue medication Hyperlipidemia: Continue medication Suspect left adnexal dermoid: This can be further evaluated as an outpatient. Will recommend pelvic ultrasound or MRI as an outpatient with gynecology evaluation. Left paracentral hernia: No obstruction identified. Monitor closely. No heavy lifting or pushing. Time Spent Managing Pts Care (In Minutes): 55
[2020-01-05] MEDS ORDERED: NA CHLORIDE 0.9% 1,000 ML IV SCH ×3 (14:00→15:00)
[2020-01-05] MEDS ORDERED: Magnesium Sulfate 2gm IVPB 2 G/50 ML BAG IV ONE (14:20)
[2020-01-05] MEDS: metroNIDAZOLE 500 MG TABLET PO SCH ×2 (14:50→21:45)
[2020-01-05] MEDS: LACTOBACILLUS/ACIDOPHILUS TAB PO SCH ×2 (14:50→21:45)
[2020-01-05] MEDS ORDERED: SODIUM CHLORIDE 0.9% 10ML INJ IV PRN (16:37)
[2020-01-05] MEDS ORDERED: PANTOPRAZOLE 40 MG INJ IVP ONE (16:41)
--- NOTE | 2020-01-05 16:41 | RAD REPORT ---
EXAM DESCRIPTION: RAD - Chest Single View - 01/05/2020 3:46 pm CLINICAL HISTORY: chest pain COMPARISON: Chest Single View dated 01/02/2020; Chest Single View dated 03/02/2018 TECHNIQUE: AP portable chest image was obtained 01/05/2020 3:46 pm . FINDINGS: Lungs are underinflated. No peripheral mass consolidation. There is motion degradation pre sent. Portable technique, body habitus and shallow inspiration results in accentuated left base opaci fication. Minimal effusion could be masked. Heart and vasculature are normal. No pneumothorax. There is no large pleural effusion. No acute bony abnormality seen. No acute aortic findings suspected. IMPRESSION: No focal mass or consolidation. Shallow inspiration could mask early edema or infiltrate.
[2020-01-05] MEDS: carvediloL 12.5 MG TAB PO SCH (17:32)
--- NOTE | 2020-01-05 18:32 | PN ---
Date of Progress Note: 01/05/2020 Subjective: Patient was admitted with colitis. Patient still complaining of abdominal pain. Patien t also admitted with acute kidney injury. Physical Examination: Vital Signs: Blood pressure 130/69, pulse 117, afebrile. Patient had good urine output. Chest: Faint crackles, bilateral bases. Heart: S1, S2. Regular. Abdomen: Soft, nontender. Extremities: Trace edema. Laboratory Data: Renal ultrasound 10/21, no hydro. Sodium 138, potassium 4, bicarb 23, BUN 6, creat inine 0.9, calcium 8.2, magnesium 1.6. WBC 17.3, H and H 15.2/47.8, platelets 402. Medications: Current medications the patient on are include: 1.Levaquin 250 daily. 2.Metronidazole 500 t.i.d. 3.Heparin. 4.Atorvastatin. 5.Zetia. 6.Lisinopril was started today. 7.Tylenol. 8.Alprazolam. 9.Clonazepam. 10.Trazodone. Assessment And Plan: 1.Acute kidney injury, normal-sized kidney, secondary to prerenal, resolved. I am going to decrease IV fluid to 50 per hour and we will follow up the patient. 2.Hypomagnesemia. We will supplement. 3.Hypertension. With the presence of recent acute kidney injury, discontinue lisinopril. I am lisset g to start the patient on carvedilol and we will follow up. 4.Colitis. We will adjust Levaquin up to 500 given the normalized kidney function. We will follow up. TED/ZULEYKA Voice ID: [id number] Report ID: [id number]
[2020-01-05] MEDS: TRAZODONE 50 MG TABLET PO SCH (21:45)
[2020-01-05] MEDS: NORTRIPTYLINE HCL 25 MG CAP PO SCH (21:45)
[2020-01-05] MEDS: ATORVASTATIN 10 MG TAB PO SCH (21:45)
[2020-01-06] MEDS: HEPARIN 5000 UNIT/ML 1 ML VIAL SQ SCH ×3 (00:15→17:01)
[2020-01-06 05:54] LABS: Absolute Lymphocytes (CBC) 4.6 K/uL (0.7-4.9); Hematocrit 41.1 % (36.0-45.0); Lymphocytes % 17.7 % (15.3-44.8); MPV 11.3 fL (7.6-11.3); RBC Red Blood Cell Count 4.61 M/uL (3.86-4.86)
[2020-01-06 06:13] LABS: Magnesium 2.1 mg/dL (1.8-2.4); Potassium 3.9 mmol/L (3.5-5.1)
[2020-01-06] MEDS: PANTOPRAZOLE 40MG TABLET PO SCH (06:18)
[2020-01-06] MEDS: carvediloL 12.5 MG TAB PO SCH (06:18)
[2020-01-06] MEDS ORDERED: POTASSIUM CL SA 10 MEQ TAB PO ONE (07:03)
[2020-01-06] MEDS: INSULIN -REGULAR HUMAN 50 UNIT/0.5 ML ML SQ SCH ×4 (07:30→20:57)
[2020-01-06 08:01] LABS: Blood Morphology Comment NOT SEEN (NOT SEEN); Platelet Estimate ADEQ
--- NOTE | 2020-01-06 08:19 | EKG ---
Test Date: 2020-01-05 Test Time: 14:59:41 Baggage Inspector: SONNY MEASUREMENT RESULTS: Intervals: Rate: 124 AR: 146 QRSD: 78 QT: 318 QTc: 456 [place]: P: 59 AR: 146 QRS: 25 T: 67 INTERPRETIVE STATEMENTS: Sinus tachycardia Cannot rule out Anterior infarct, age undetermined Abnormal ECG Compared to ECG 01/04/2020 20:45:45 No significant changes Electronically Signed On 01-06-20 08:18:48 DIRECTOR CLIENT by Sergei Woods
[2020-01-06] MEDS: GABAPENTIN 300 MG CAP PO SCH ×3 (08:53→20:55)
[2020-01-06] MEDS: EZETIMIBE 10 MG TAB PO SCH (08:53)
[2020-01-06] MEDS: LACTOBACILLUS/ACIDOPHILUS TAB PO SCH ×3 (08:53→20:55)
[2020-01-06] MEDS: TRAMADOL HCL 50 MG TAB PO SCH ×3 (08:53→20:58)
[2020-01-06] MEDS: metroNIDAZOLE 500 MG TABLET PO SCH ×3 (08:53→20:55)
[2020-01-06] MEDS: levoFLOXacin 500 MG TAB PO SCH (08:54)
[2020-01-06] MEDS: BUPROPION HCL XL 150 MG TAB PO SCH (08:54)
[2020-01-06] MEDS: clonazePAM 1 MG TAB PO SCH (09:00)
[2020-01-06] MEDS ORDERED: levoFLOXacin 250 MG TAB PO SCH (09:00)
[2020-01-06] MEDS: NA CHLORIDE 0.9% 1,000 ML IV SCH ×2 (09:11→17:15)
[2020-01-06] MEDS ORDERED: NA CHLORIDE 0.9% 250 ML IV ONE (10:27)
--- NOTE | 2020-01-06 10:56 | P.PN ---
Subjective Date of Service: 01/06/20 Primary Care Provider: Dr. Small Chief Complaint: Diarrhea Subjective: Other (Patient improving. Patient reported no diarrhea this morning. No significant nausea vomiting. Patient still with poor oral intake.) Physical Examination - Vital Signs Temperature: 97.7 F Blood Pressure: 96/61 Pulse: 107 Respirations: 20 Pulse Ox (%): 93 - Physical Exam General: Alert, Cooperative HEENT: Atraumatic Neck: Supple Respiratory: Clear to auscultation bilaterally, Normal air movement Cardiovascular: Normal pulses, Regular rate/rhythm Gastrointestinal: Normal bowel sounds, Soft and benign, Non-distended, No tenderness, No masses, No rebound, No guarding Musculoskeletal: No tenderness, No warmth Integumentary: No warmth, No cyanosis Neurological: Normal speech, Normal strength at 5/5 x4 extr, Normal tone, Normal affect - Studies Microbiology Data (last 24 hrs): 01/02/20 22:15 Catheterized Urine [place] Count - Final >100,000 CFU/ML. 01/02/20 22:15 Catheterized Urine - Final Escherichia Coli Medications List Reviewed: Yes Assessment & Plan Discharge Plan: Home Plan to discharge in: 24 Hours Physician Review Additional Text: Impression: Acute colitis complicated with UTI, urine culture positive for E coli Acute renal injury likely from dehydration Hypertension Diabetes mellitus type 2 Chronic pain Depression Hyperlipidemia Left paracentral hernia Suspect left adnexal dermoid Plan: Acute colitis complicated with UTI, urine culture positive for E coli: Blood pressure is still low. Will provide IV fluid bolus. Will check orthostatics. Encourage ambulation. Continue antibiotic therapy. Case discussed with nephrology. Need to rule out C diff colitis. Continue with current plan of care. Plan for discharge likely tomorrow if blood pressure improved and no more diarrhea. Acute renal injury likely from dehydration: Blood pressure is still low. Renal function decline. Will provide IV fluid bolus. Will increase IV fluids. Will recheck tomorrow. Hypertension: Continue medication. May need to hold blood pressure medication if systolic less than 110. Will monitor and adjust appropriately. Diabetes mellitus type 2: Continue Accu-Cheks and sliding scale. Chronic pain: Continue medication Depression: Continue medication Hyperlipidemia: Continue medication Suspect left adnexal dermoid: This can be further evaluated as an outpatient. Will recommend pelvic ultrasound or MRI as an outpatient with gynecology evaluation. Left paracentral hernia: No obstruction identified. Monitor closely. No heavy lifting or pushing. Time Spent Managing Pts Care (In Minutes): 55
[2020-01-06 13:41] LABS: Potassium 4.2 mmol/L (3.5-5.1)
--- NOTE | 2020-01-06 15:31 | PN ---
Date of Progress Note: 01/06/2020 Subjective: Patient was admitted with acute kidney injury, colitis. Patient still has colitis. Objective: Vital Signs: When I saw the patient, blood pressure 96/60, pulse of 107, afebrile. Patient had urine output. Chest: Clear to auscultation. Heart: S1, S2. Regular. Abdomen: Tenderness in epigastric area. Extremities: No edema. Laboratory Data: WBC 25.8, H and H 13.1/41, platelets 342. Sodium 137, potassium 3.9, bicarb 22, BUN 9, creatinine 1.5, calcium of 8, magnesium of 2. Current Medications: Patient is on includes: 1. Levaquin. 2. Flagyl. 3. Carvedilol 12.5. 4. Zetia. 5. Tylenol. 6. Trazodone. 7. Pantoprazole. 8. IV fluid. Assessment And Plan: 1. Acute kidney injury secondary to prerenal. Still on the dry side secondary to the gastrointestinal loss. I am going to continue IV fluid and we will monitor the patient. 2. Hypertension, currently hypotension. I am going to go ahead and decrease carvedilol to3.125 bid . Continue hydration. 3. Colitis as by primary. Continue current antibiotic. 4. Hypokalemia, status post supplement. TED/ZULEYKA Voice ID: [id number] Report ID: [id number] MTDD
--- NOTE | 2020-01-06 16:22 | RAD REPORT ---
EXAM DESCRIPTION: Lindsey Vogel And Lat (2 Views)01/06/2020 3:36 pm CLINICAL HISTORY: sob COMPARISON: January 05 FINDINGS: Mild bilateral interstitial lung opacities Left lower lobe consolidation Heart is borderline enlarged IMPRESSION: Left lower lobe consolidation probably pneumonia There may also be mild interstitial pulmonary edema
[2020-01-06] MEDS: GUAIFENESIN 600 MG SA TAB PO SCH (17:04)
[2020-01-06] MEDS ORDERED: carvediloL 3.125 MG TAB PO SCH (18:00)
[2020-01-06] MEDS: ATORVASTATIN 10 MG TAB PO SCH (20:55)
[2020-01-06] MEDS: TRAZODONE 50 MG TABLET PO SCH (20:55)
[2020-01-06] MEDS: NORTRIPTYLINE HCL 25 MG CAP PO SCH (21:02)
[2020-01-06] MEDS: FLUTICASONE 50MCG NASAL SPRAY NAS SCH (21:02)
[2020-01-07] MEDS: HEPARIN 5000 UNIT/ML 1 ML VIAL SQ SCH ×3 (01:30→19:28)
[2020-01-07] MEDS: HYDROCODONE/APAP 5/325 MG TAB PO PRN ×3 (04:17→19:28)
[2020-01-07] MEDS: NA CHLORIDE 0.9% 1,000 ML IV SCH (04:22)
[2020-01-07 04:36] LABS: Hematocrit 39.9 % (36.0-45.0); Lymphocytes % 25.4 % (15.3-44.8); MPV 10.9 fL (7.6-11.3); RBC Red Blood Cell Count 4.49 M/uL (3.86-4.86)
[2020-01-07 04:40] LABS: Potassium 4.1 mmol/L (3.5-5.1)
[2020-01-07] MEDS: INSULIN -REGULAR HUMAN 50 UNIT/0.5 ML ML SQ SCH ×4 (07:30→22:07)
[2020-01-07] MEDS: BUPROPION HCL XL 150 MG TAB PO SCH (09:00)
[2020-01-07] MEDS: LACTOBACILLUS/ACIDOPHILUS TAB PO SCH ×3 (09:05→22:05)
[2020-01-07] MEDS: GABAPENTIN 300 MG CAP PO SCH ×3 (09:05→22:05)
[2020-01-07] MEDS: EZETIMIBE 10 MG TAB PO SCH (09:05)
[2020-01-07] MEDS: GUAIFENESIN 600 MG SA TAB PO SCH ×2 (09:06→22:06)
[2020-01-07] MEDS: metroNIDAZOLE 500 MG TABLET PO SCH ×3 (09:06→22:04)
[2020-01-07] MEDS: PANTOPRAZOLE 40MG TABLET PO SCH (09:06)
[2020-01-07] MEDS: FLUTICASONE 50MCG NASAL SPRAY NAS SCH ×2 (09:08→22:08)
[2020-01-07] MEDS: TRAMADOL HCL 50 MG TAB PO SCH ×3 (10:27→22:06)
[2020-01-07] MEDS: levoFLOXacin 500 MG TAB PO SCH (10:27)
--- NOTE | 2020-01-07 10:37 | RAD REPORT ---
EXAM DESCRIPTION: RAD - Chest Single View - 01/07/2020 10:31 am CLINICAL HISTORY: acute colitis, acute renal failure Chest pain. COMPARISON: Chest Pa And Lat (2 Views) dated 01/06/2020; Chest Single View dated 01/05/2020; Chest Sin gle View dated 01/02/2020; Chest Single View dated 03/02/2018 FINDINGS: Portable technique limits examination quality. Small infiltrate is present in the left lung base, mildly progressive since the prior study. Small le ft pleural effusion noted. The heart is normal in size. No displaced fractures. IMPRESSION: Mild worsening in left lung base aeration since comparative study.
--- NOTE | 2020-01-07 11:22 | P.PN ---
Subjective Date of Service: 01/07/20 Primary Care Provider: Dr. Small Chief Complaint: Diarrhea Subjective: Other (Patient is slowly improving. Mild diarrhea noted) Physical Examination - Vital Signs Temperature: 97.8 F Blood Pressure: 144/56 Pulse: 98 Respirations: 16 Pulse Ox (%): 91 - Physical Exam General: Alert, In no apparent distress, Oriented x3, Cooperative HEENT: Atraumatic Neck: Supple Respiratory: Crackles/rales (Crackles to the left base) Cardiovascular: Normal pulses, Regular rate/rhythm Gastrointestinal: Normal bowel sounds, Soft and benign, Non-distended, No tenderness, No masses, No rebound, No guarding Musculoskeletal: No erythema, No tenderness, No warmth Integumentary: No tenderness/swelling, No erythema, No warmth, No cyanosis Neurological: Normal speech, Normal strength at 5/5 x4 extr, Normal tone, Normal affect - Studies Medications List Reviewed: Yes Assessment & Plan Discharge Plan: Home Plan to discharge in: 24 Hours Physician Review Additional Text: Impression: Acute colitis complicated with UTI, urine culture positive for E coli Left lower lobe pneumonia Acute renal injury likely from dehydration Hypertension Diabetes mellitus type 2 Chronic pain Depression Hyperlipidemia Left paracentral hernia Suspect left adnexal dermoid Plan: Acute colitis complicated with UTI, urine culture positive for E coli: Blood pressure improved. Diarrhea also improved. Medications reviewed. Patient with underlying left lower lobe pneumonia. Pulmonology consulted. Continue antibiotic therapy. Patient will need to be weaned off oxygen prior to discharge. What physical therapy ambulate. Encourage incentive spirometer. Continue DVT prophylaxis. Case discussed with nephrology and GI. Left lower lobe pneumonia: Continue with antibiotic therapy. Wean off oxygen. Encourage incentive spirometer. Physical therapy to ambulate. Will discuss further with pulmonology. Acute renal injury likely from dehydration: Blood pressure medication discontinued yesterday. Renal function improved. Blood pressure stable. IV fluids discontinued by nephrology. Hypertension: Carvedilol discontinued. Blood pressure stable at this time. Will monitor closely off medication. May need to hold blood pressure medication if systolic less than 110. Will monitor and adjust appropriately. Diabetes mellitus type 2: Continue Accu-Cheks and sliding scale. Chronic pain: Continue medication Depression: Continue medication Hyperlipidemia: Continue medication Suspect left adnexal dermoid: This can be further evaluated as an outpatient. Will recommend pelvic ultrasound or MRI as an outpatient with gynecology evaluation. Left paracentral hernia: No obstruction identified. Monitor closely. No heavy lifting or pushing. Time Spent Managing Pts Care (In Minutes): 55
[2020-01-07 13:54] LABS: Urine Appearance CLEAR; Urine Bilirubin NEGATIVE (NEG); Urine Blood NEGATIVE (NEG); Urine Color YELLOW; Urine Glucose NEGATIVE (NEG); Urine Protein NEGATIVE (NEG); Urine Urobilinogen 0.2 mg/dL (0.2-1.0)
[2020-01-07 13:56] LABS: Urine Microscopic Reflex NO UMIC
[2020-01-07 14:36] LABS: C.diff Antigen/Toxin Ag neg : Tox neg (NEG : NEG)
--- NOTE | 2020-01-07 14:55 | PN ---
Date of Progress Note: 01/07/2020 Subjective: The patient was admitted with acute kidney injury, colitis. Patient complaining today f rom shortness of breath and right flank pain. Physical Examination: Vital Signs: Blood pressure of 144/56, pulse of 98. Patient had good urine output voiding. Chest: Decreased air entry, bilateral bases. Heart: S1, S2. Regular. Abdomen: Soft, nontender. Extremities: Trace edema. Laboratory Data: WBC 19.5, H and H are 12.9/39.9, platelets 383. Sodium 141, potassium 4.1, bicarb 25, BUN 10, creatinine down to 1.1, calcium 8.1. Magnesium 2. Current Medications: The patient on include Tylenol, Toprol p.r.n., clonazepam, gabapentin, nortript yline, trazodone, lactulose, Zofran, pantoprazole, IV fluid 100 per hour. Assessment And Plan: 1.Acute kidney injury secondary to prerenal, recovered, resolved. Looked to me on the wet side. I am going to discontinue IV fluid. We will request chest x-ray to evaluate her fluid status closer. 2.Hypertension, controlled, optimal. Continue current medication. 3.Colitis. We will follow up with the primary. 4.Abdominal pain. We will send for UA to evaluate further. JOHNNY Voice ID: [id number] Report ID: [id number]
[2020-01-07] MEDS: NORTRIPTYLINE HCL 25 MG CAP PO SCH (22:04)
[2020-01-07] MEDS: TRAZODONE 50 MG TABLET PO SCH (22:05)
[2020-01-07] MEDS: ATORVASTATIN 10 MG TAB PO SCH (22:06)
[2020-01-08] MEDS: HEPARIN 5000 UNIT/ML 1 ML VIAL SQ SCH ×2 (01:57→10:23)
[2020-01-08 06:52] LABS: Absolute Lymphocytes (CBC) 4.8 K/uL (0.7-4.9); Hematocrit 37.7 % (36.0-45.0); Lymphocytes % 33.6 % (15.3-44.8); MPV 10.8 fL (7.6-11.3); RBC Red Blood Cell Count 4.26 M/uL (3.86-4.86)
[2020-01-08 07:10] LABS: Magnesium 1.8 mg/dL (1.8-2.4); Potassium 4.3 mmol/L (3.5-5.1)
[2020-01-08] MEDS: INSULIN -REGULAR HUMAN 50 UNIT/0.5 ML ML SQ SCH ×2 (07:30→12:26)
[2020-01-08] MEDS: FLUTICASONE 50MCG NASAL SPRAY NAS SCH (09:00)
--- NOTE | 2020-01-08 09:36 | P.PN ---
Subjective Date of Service: 01/08/20 Primary Care Provider: Dr. Small Chief Complaint: Diarrhea Subjective: Improving, Doing well Physical Examination - Vital Signs Temperature: 97.8 F Blood Pressure: 110/73 Pulse: 94 Respirations: 18 Pulse Ox (%): 94 - Physical Exam General: Alert, In no apparent distress, Oriented x3, Cooperative HEENT: Atraumatic Neck: Supple Respiratory: Other (Better air movement bilateral) Cardiovascular: Normal pulses, Regular rate/rhythm Neurological: Normal speech, Normal strength at 5/5 x4 extr, Normal tone, Normal affect - Studies Microbiology Data (last 24 hrs): 01/02/20 22:00 Blood - Blood Aerobic Blood Culture - Final No growth in 5 days. 01/02/20 22:00 Blood - Blood Anaerobic Blood Culture - Final 01/02/20 20:05 Blood - Blood Aerobic Blood Culture - Final No growth in 5 days. 01/02/20 20:05 Blood - Blood Anaerobic Blood Culture - Final No growth in 5 days. Medications List Reviewed: Yes Assessment & Plan Discharge Plan: Home Plan to discharge in: 24 Hours Physician Review Additional Text: Impression: Acute colitis complicated with UTI, urine culture positive for E coli Left lower lobe pneumonia Acute renal injury likely from dehydration Hypertension Diabetes mellitus type 2 Chronic pain Depression Hyperlipidemia Left paracentral hernia Suspect left adnexal dermoid Plan: Acute colitis complicated with UTI, urine culture positive for E coli: Patient continues to improve. Will need to continue to wean off oxygen. Encourage ambulation and incentive spirometer. Possible discharge as early as today if no need for oxygen. Left lower lobe pneumonia: Continue with antibiotic therapy. Wean off oxygen. Encourage incentive spirometer. Physical therapy to ambulate. Discharge once off oxygen Acute renal injury likely from dehydration: Blood pressure remained stable. Hypertension: Carvedilol discontinued. Blood pressure stable. No need for medication at this time. Will monitor closely off medication. May need to hold blood pressure medication if systolic less than 110. Will monitor and adjust appropriately. Diabetes mellitus type 2: Continue Accu-Cheks and sliding scale. Chronic pain: Continue medication Depression: Continue medication Hyperlipidemia: Continue medication Suspect left adnexal dermoid: This can be further evaluated as an outpatient. Will recommend pelvic ultrasound or MRI as an outpatient with gynecology evaluation. Left paracentral hernia: No obstruction identified. Monitor closely. No heavy lifting or pushing. Time Spent Managing Pts Care (In Minutes): 55
[2020-01-08] MEDS: levoFLOXacin 500 MG TAB PO SCH (10:20)
[2020-01-08] MEDS: GABAPENTIN 300 MG CAP PO SCH ×2 (10:21→14:00)
[2020-01-08] MEDS: BUPROPION HCL XL 150 MG TAB PO SCH (10:21)
[2020-01-08] MEDS: LACTOBACILLUS/ACIDOPHILUS TAB PO SCH ×2 (10:21→14:00)
[2020-01-08] MEDS: TRAMADOL HCL 50 MG TAB PO SCH ×2 (10:22→14:00)
[2020-01-08] MEDS: PANTOPRAZOLE 40MG TABLET PO SCH (10:22)
[2020-01-08] MEDS: metroNIDAZOLE 500 MG TABLET PO SCH ×2 (10:22→14:00)
[2020-01-08] MEDS: EZETIMIBE 10 MG TAB PO SCH (10:22)
[2020-01-08] MEDS: GUAIFENESIN 600 MG SA TAB PO SCH (10:23)
[2020-01-08 10:52] VITALS: O2SAT 98
[2020-01-08 12:04] VITALS: BP 135/82; TEMP 96.9
--- NOTE | 2020-01-08 13:25 | P.DS ---
Admission Date: 01/03/20 Discharge Date: 01/08/20 Primary Care Provider: Dr. Small Disposition: ROUTINE DISCHARGE Discharge Condition: GOOD Reason for Admission: Diarrhea Consultations: Nephrology-Dr. Burden GI-Dr. Mendez Procedures: CT Scan: FINDINGS: There are no renal, ureteral, or bladder calculi. There is no hydronephrosis or perinephric stranding on either side. 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 Normal uterus, right adnexa, and urinary bladder. Possible fat-containing lesion in the left adnexa measuring up to 2.2 cm. The lung bases are clear. There is a large left paracentral epigastric hernia containing peritoneal fat and a segment of the transverse colon. There is no bowel inflammation, obstruction, pneumatosis, free intraperitoneal air, abscess, or ascites. Normal appendix. There is an additional small fat-containing right epigastric hernia. Steatosis of the liver, which is mildly enlarged without focal lesion. Prior cholecystectomy without biliary dilatation. Prior splenectomy. Nonspecific nodular thickening of the left adrenal gland. Normal right adrenal gland. Atherosclerosis without abdominal aortic aneurysm or retroperitoneal hemorrhage. Severe chronic facet arthrosis at L4-L5. Severe chronic degenerative disc disease at L5-S1. No acute fracture in the lumbar spine or pelvis. Biliary tree , gallbladder, pancreas, spleen, adrenal glands, kidneys, urinary bladder, and osseous structures are normal. IMPRESSION: No urolithiasis or urinary obstruction. No bowel inflammation or obstruction. Large left paracentral epigastric hernia contains fat and a loop of nonobstructed transverse colon. Possible left adnexal dermoid should be followed up with contrast-enhanced pelvic MRI. If not surgically resected, pelvic ultrasound follow-up is recommended annually. Renal US: COMPARISON: January 02, 2020 CT FINDINGS: The right kidney measures 12 cm with a normal echotexture. The left kidney measures 11 cm with a normal echotexture. Malrotation left kidney Hydronephrosis is not seen. No gross abnormality of bladder IMPRESSION: No acute abnormality displayed CXR: COMPARISON: January 02, 2020 CT FINDINGS: The right kidney measures 12 cm with a normal echotexture. The left kidney measures 11 cm with a normal echotexture. Malrotation left kidney Hydronephrosis is not seen. No gross abnormality of bladder IMPRESSION: No acute abnormality displayed Medical Problem List: Acute colitis complicated with UTI, urine culture positive for E coli Left lower lobe pneumonia Acute renal injury likely from dehydration Hypertension Diabetes mellitus type 2 Chronic pain Depression Hyperlipidemia Left paracentral hernia Suspect left adnexal dermoid Brief History of Present Illness: 59-year-old female presented to the emergency room diarrhea and abdominal pain. Patient found to have colitis. Patient recently started on metformin. Patient admitted for further evaluation and treatment. Hospital Course: Patient presented with abdominal pain, diarrhea. This was after she recently started metformin. Patient was admitted for further evaluation and treatment. CT scan did not reveal colitis but clinically patient appeared to have colitis. GI was consulted who agreed with plan. Patient received IV Levaquin and Flagyl during the course of her stay. C diff culture was negative. Stool cultures negative. Patient has responded well to IV fluid hydration and antibiotic therapy. At discharge metformin has been discontinued. At discharge she will continue with Levaquin 500 mg daily and Flagyl 500 mg 3 times a day for 5 more days. Patient will continue with lactobacillus 3 times a day. Recommend follow up with GI in 2-4 weeks to monitor her progress. Patient would benefit with colonoscopy in the future. During the course of her stay patient had acute renal injury likely from dehydration related to diarrhea. Patient received IV fluid hydration. Nephrology was consulted. She has improved. At discharge will recommend to discontinue metformin. Recommend future medications to be renally dosed. Recommend no further use of nonsteroidal anti-inflammatories lab-BMP in 1 week to follow up this hospitalization. Patient may follow up with Nephrology in 2- 4 weeks. During the course of her stay patient was also found to have UTI and left base pneumonia. Urine culture was positive for E coli. Her condition improved. Patient was weaned off oxygen. Patient continued do well with incentive spirometer and ambulation. At discharge she is without significant shortness of breath. No complaints of urinary complaints. Patient will continue with Levaquin 500 mg daily for 5 more days. Patient may continue with Mucinex twice daily as needed for congestion and Flonase 1 spray per nostril twice daily. Recommend to recheck chest x-ray in 2-4 weeks to monitor resolution. Recommend to recheck urinalysis after treatment to monitor resolution. This can be done with the help of her PCP. Patient with history of elevated blood pressure and hypertension. Patient recently placed on lisinopril. Blood pressure has remained stable. Blood pressures remain normal without medication. She was given a trial of carvedilol but no need at this time for medication. Recommend to monitor blood pressures daily. If her blood pressures remain above 140/90 patient may require medication. At discharge lisinopril has been discontinued. If medication is required consider low-dose carvedilol. This can be done with the help of her PCP. Patient with diabetes mellitus type 2. Patient previously on glipizide/ metformin. This caused her to have diarrhea and abdominal pain. Will discontinue medication. Will start her on glipizide 5 mg daily. She is to monitor her blood sugars closely. Recommend to maintain blood sugars less less than 140 fasting and less than 200 after meals. If blood sugar less than 100 then she needs to hold glipizide. Hypoglycemia education with provided. Diabetes Education also provided. Patient with hyperlipidemia. Patient may continue with her medications of Zetia 10 mg daily and Zocor 20 mg daily. Patient with depression. At discharge she may continue with her medications including Wellbutrin, Klonopin, Pamelor, and trazodone. Further adjustment can be done by her PCP. Patient with chronic pain Patient may continue with tramadol and gabapentin as directed. CT scan did reveal a left adnexal dermoid. Recommend gynecology evaluation as an outpatient. Will also recommend pelvic ultrasound or MRI of pelvis to further evaluate. Patient also has left paracentral hernia. No heavy lifting, pushing or pulling recommended. Vital Signs/Physical Exam: Temp Pulse Resp BP Pulse Ox 96.9 F 95 H 18 135/82 97 01/08/20 12:00 01/08/20 12:00 01/08/20 12:00 01/08/20 12:01/08/20 12:00 General: Alert, In no apparent distress, Oriented x3, Cooperative HEENT: Atraumatic Neck: Supple Respiratory: Clear to auscultation bilaterally, Normal air movement Cardiovascular: Normal pulses, Regular rate/rhythm Gastrointestinal: Normal bowel sounds, Soft and benign, Non-distended, No tenderness, No masses, No rebound, No guarding Musculoskeletal: No erythema, No tenderness, No warmth Integumentary: No tenderness/swelling, No erythema, No warmth, No cyanosis Neurological: Normal speech, Normal strength at 5/5 x4 extr, Normal tone, Normal affect Laboratory Data at Discharge: WBC 14.2 K/uL (4.3-10.9) H D 01/08/20 05:40 Hgb 12.4 g/dL (12.0-15.0) 01/08/20 05:40 Hct 37.7 % (36.0-45.0) 01/08/20 05:40 Plt Count 437 K/uL (152-406) H 01/08/20 05:40 PT 12.8 SECONDS (9.5-12.5) H 01/02/20 22:04 INR 1.09 01/02/20 22:04 Sodium 142 mmol/L (136-145) 01/08/20 05:40 Potassium 4.3 mmol/L (3.5-5.1) 01/08/20 05:40 BUN 8 mg/dL (7-18) 01/08/20 05:40 Creatinine 0.94 mg/dL (0.55-1.3) 01/08/20 05:40 Glucose 133 mg/dL (74-106) H 01/08/20 05:40 Phosphorus 3.0 mg/dL (2.5-4.9) 01/03/20 05:24 Magnesium 1.8 mg/dL (1.8-2.4) 01/08/20 05:40 Total Bilirubin 0.4 mg/dL (0.2-1.0) 01/05/20 03:05 AST 26 U/L (15-37) D 01/05/20 03:05 ALT 48 U/L (12-78) 01/05/20 03:05 Alkaline Phosphatase 137 U/L (45-117) H 01/05/20 03:05 Troponin I < 0.02 ng/mL (0.0-0.045) 01/05/20 15:43 Lipase 101 U/L (73-393) 01/02/20 20:05 Home Medications: Bupropion *Xl* [Wellbutrin XL*] 300 mg PO DAILY 01/03/20 Ezetimibe [Zetia] 10 mg PO DAILY 01/03/20 Gabapentin 600 mg PO TID 01/03/20 Nortriptyline HCl [Pamelor] 75 mg PO DAILY 01/03/20 Simvastatin 20 mg PO DAILY 01/03/20 Tramadol HCl [Ultram] 50 mg PO TID 01/03/20 Trazodone HCl [Desyrel] 100 mg PO BEDTIME 01/03/20 clonazePAM [Clonazepam] 1 mg PO TID 01/03/20 Fluticasone [Flonase 50mcg Nasal [place]] 1 sprays NS BID #1 btl 01/08/20 Guaifenesin [Mucinex] 600 mg PO BID PRN #15 tab.er.12h 01/08/20 Lactobacillus Acidophilus [Acidophilus Lactobacilli] 1 each PO TID #90 capsule 01/08/20 glipiZIDE [Glipizide] 5 mg PO DAILY #30 tablet 01/08/20 levoFLOXacin [Levaquin*] 500 mg PO DAILY #5 tab 01/08/20 metroNIDAZOLE [Flagyl*] 500 mg PO TID #15 tablet 01/08/20 New Medications: Fluticasone [Flonase 50mcg Nasal [place]] 1 sprays NS BID #1 btl glipiZIDE [Glipizide] 5 mg PO DAILY #30 tablet Guaifenesin [Mucinex] 600 mg PO BID PRN #15 tab.er.12h PRN Reason: Cough Lactobacillus Acidophilus [Acidophilus Lactobacilli] 1 each PO TID #90 capsule levoFLOXacin [Levaquin*] 500 mg PO DAILY #5 tab metroNIDAZOLE [Flagyl*] 500 mg PO TID #15 tablet Patient Discharge Instructions: 1. Recommend follow up with her PCP in 1 week to follow up this hospitalization. 2. Patient presented with abdominal pain, diarrhea. This was after she recently started metformin. Patient was admitted for further evaluation and treatment. CT scan did not reveal colitis but clinically patient appeared to have colitis. GI was consulted who agreed with plan. Patient received IV Levaquin and Flagyl during the course of her stay. C diff culture was negative. Stool cultures negative. Patient has responded well to IV fluid hydration and antibiotic therapy. At discharge metformin has been discontinued. At discharge she will continue with Levaquin 500 mg daily and Flagyl 500 mg 3 times a day for 5 more days. Patient will continue with lactobacillus 3 times a day. Recommend follow up with GI in 2-4 weeks to monitor her progress. Patient would benefit with colonoscopy in the future. 3. During the course of her stay patient had acute renal injury likely from dehydration related to diarrhea. Patient received IV fluid hydration. Nephrology was consulted. She has improved. At discharge will recommend to discontinue metformin. Recommend future medications to be renally dosed. Recommend no further use of nonsteroidal anti-inflammatories lab-BMP in 1 week to follow up this hospitalization. Patient may follow up with Nephrology in 2- 4 weeks. 4. During the course of her stay patient was also found to have UTI and left base pneumonia. Urine culture was positive for E coli. Her condition improved. Patient was weaned off oxygen. Patient continued do well with incentive spirometer and ambulation. At discharge she is without significant shortness of breath. No complaints of urinary complaints. Patient will continue with Levaquin 500 mg daily for 5 more days. Patient may continue with Mucinex twice daily as needed for congestion and Flonase 1 spray per nostril twice daily. Recommend to recheck chest x-ray in 2-4 weeks to monitor resolution. Recommend to recheck urinalysis after treatment to monitor resolution. This can be done with the help of her PCP. 5. Patient with history of elevated blood pressure and hypertension. Patient recently placed on lisinopril. Blood pressure has remained stable. Blood pressures remain normal without medication. She was given a trial of carvedilol but no need at this time for medication. Recommend to monitor blood pressures daily. If her blood pressures remain above 140/90 patient may require medication. At discharge lisinopril has been discontinued. If medication is required consider low-dose carvedilol. This can be done with the help of her PCP. 6. Patient with diabetes mellitus type 2. Patient previously on glipizide/metformin. This caused her to have diarrhea and abdominal pain. Will discontinue medication. Will start her on glipizide 5 mg daily. She is to monitor her blood sugars closely. Recommend to maintain blood sugars less less than 140 fasting and less than 200 after meals. If blood sugar less than 100 then she needs to hold glipizide. Hypoglycemia education with provided. Diabetes Education also provided. 7. Patient with hyperlipidemia. Patient may continue with her medications of Zetia 10 mg daily and Zocor 20 mg daily. 8. Patient with depression. At discharge she may continue with her medications including Wellbutrin, Klonopin, Pamelor, and trazodone. Further adjustment can be done by her PCP. 9. Patient with chronic pain Patient may continue with tramadol and gabapentin as directed. 10. CT scan did reveal a left adnexal dermoid. Recommend gynecology evaluation as an outpatient. Will also recommend pelvic ultrasound or MRI of pelvis to further evaluate. 11. Patient also has left paracentral hernia. No heavy lifting, pushing or pulling recommended. Diet: AHA Activity: Fall precautions Time spent managing pt's care (in minutes): 55
--- NOTE | 2020-01-09 02:39 | PN ---
Date of Progress Note: 01/08/2020 Chief Complaint: Acute kidney injury secondary to prerenal azotemia. History Of Present Illness: Renal function has improved to baseline. Patient was treated with IV fluids and renal function improved. Patient is off IV fluids. She developed mild fluid overload and IV fluids were stopped yesterday. Review of Systems: Denies fever, chills. Physical Examination: Lungs: Clear to auscultation bilaterally. Heart: S1, S2. Abdomen: Soft, benign. Extremities: Minimal edema. Laboratory Data: Sodium 141, potassium 4.1, bicarbonate 25, BUN 10, creatinine 1.1, calcium 8.1, magnesium 2.0. Impression And Plan: 1. Acute kidney injury secondary to prerenal azotemia, nonoliguric acute tubular necrosis in setting of fluid depletion. Patient responded to IV fluids. Patient was admitted for colitis. Patient will continue treatment for colitis according to primary team. 2. Abdominal pain. Patient does not have complaints today. Urinalysis was obtained to rule out urinary tract infection. 3. Hypertension. Continue blood pressure medication. I spent total 36 min including 25 min to coordinate care plan. AYSE/ZULEYKA Voice ID: [id number] Report ID: [id number] NARA
== END 2020-01-08 14:22 | disposition home or self-care (01) | DRG 393 ==
LOC: ER 19:04 → ERHOLD 22:44 → INTOOBSV 22:44 → OBSVTOIN 22:44 → 4TH 01-03 00:09 → OBSVTOIN 01-03 11:55
PROVIDERS: ADMIT Internal Medicine; ATTEND Family Medicine
DX: K52.1 Toxic gastroenteritis and colitis (principal); J18.9 Pneumonia, unspecified organism; N17.0 Acute kidney failure with tubular necrosis; N17.9 Acute kidney failure, unspecified; N30.01 Acute cystitis with hematuria; T38.3X5A Adverse effect of insulin and oral hypoglycemic [antidiabetic] drugs, initial encounter; B96.20 Unspecified Escherichia coli [E. coli] as the cause of diseases classified elsewhere; E11.9 Type 2 diabetes mellitus without complications; I10 Essential (primary) hypertension; E78.5 Hyperlipidemia, unspecified; E86.1 Hypovolemia; F32.9 Major depressive disorder, single episode, unspecified; K43.9 Ventral hernia without obstruction or gangrene; D28.7 Benign neoplasm of other specified female genital organs; R52 Pain, unspecified; Y92.9 Unspecified place or not applicable; Z79.4 Long term (current) use of insulin
CPT/HCPCS: 36415; 71045; 71046; 74176; 76377; 76770; 80048; 80053; 80076; 81003; 81015; 82570; 82805; 82947; 83605; 83631; 83690; 83735; 83880; 84100; 84145; 84156; 84443; 84484; 85025; 85610; 87040; 87045; 87046; 87070; 87077; 87081; 87086; 87088; 87186; 87205; 87324; 87449; 87804; 89055; 93005; 94760; 96361; 96365; 96375; 97112; 97116; 97161; 99285; C9113; G0378; J0696; J1644; J2175; J2270; J2405; J3010; J3475; J7030

== ENCOUNTER 2020-07-03 15:52 | Observation (INO) | payer OTHER ==
--- OUTSIDE RECORDS SUMMARY | 2020-07-03 15:54 | XMS REPORT | Continuity of Care Document ---
:1960 Author Organization [employer] Care Team Providers Name Role Phone [employer] [facility] Unavailable Un available Problems Problem Status Onset Classification Date Comments Sourc e Date Reported Drop attack Active Problem 12/10/2019 [facility] (finding) Neuro Dysarthria Active Problem 12/10/2019 [facility] (finding) Neuro Hypertensive Active Problem 12/10/2019 [facility] disorder, systemic N euro arterial (disorder) Hyperlipidemia Active Problem 12/10/2019 Misc her (disorder) Neuro Medications Medication Details Route Status Patient Ordering Order Source Instructions Provider Date Lorazepam 0.5 MG See Active [facility] Oral Tablet Instruction 019 Neuro [Ativan] s, Take 1 tab po 1 hour prior to MRI, may repeat q 15 min. if still anxious, # 5 tab, 0 Refill(s), called to pharmacy Aspirin 81 MG 81 mg = 1 Active [facility] Enteric Coated tab, PO, 019 Neuro Tablet Daily, # 90 tab, 3 Refill(s), other lisinopril 20 mg 20 mg = 1 Active [facility] oral tablet tab, PO, 019 Neuro Daily, # 30 tab, 0 Refill(s) amLODIPine 5 mg 5 mg = 1 Active [facility] oral tablet tab, PO, 019 Neuro Daily, 0 Refill(s) buPROPion 300 300 mg = 1 Active [facility] mg/24 hours (XL) tab, PO, 019 Neuro oral tablet, Q24H, 0 extended release Refill(s) sertraline 100 100 mg = 1 Active [facility] mg oral tablet tab, PO, 019 Neuro Daily, 0 Refill(s) simvastatin 20 20 mg = 1 Active [facility] mg oral tablet tab, PO, 019 Neuro Bedtime, 0 Refill(s) gabapentin 600 600 mg = 1 Active [facility] MG Oral Tablet tab, PO, 019 Neuro TID, # 270 tab, 0 Refill(s) nortriptyline 75 75 mg = 1 Active [facility] mg oral capsule cap, PO, 019 Neuro Bedtime, 0 Refill(s) doxepin 100 mg 100 mg = 1 Active [facility] oral capsule cap, PO, 019 Neuro Bedtime, 0 Refill(s) Trazodone 100 mg = 1 Active [facility] Hydrochloride tab, PO, 019 Neuro 100 MG Oral Bedtime, # Tablet 30 tab, 0 Refill(s) tramadol 50 mg = 1 Active [facility] hydrochloride 50 tab, PO, 019 Neuro MG Oral Tablet Bedtime, 0 Refill(s) clonazePAM 1 mg 1 mg = 1 Active [facility] oral tablet tab, PO, 019 Neuro TID, # 270 tab, 0 Refill(s) Allergies, Adverse Reactions, Alerts Substance Category Reaction Severity Reaction Status Date Comments S ource type Reported No Known Assertion Drug M[facility] er Medication allergy Neuro Allergies Immunizations No Data Provided for This Section Results No Data Provided for This Section Pathology Reports No Data Provided for This Section Diagnostic Reports No Data Provided for This Section Consultation Notes No Data Provided for This Section Discharge Summaries No Data Provided for This Section History and Physicals No Data Provided for This Section Vital Signs Vital Sign Value Date Comments Source Systolic (mm Hg) 82 [facility]04[facility]2019 [facility] [place] Diastolic (mm Hg) 67 08/04/2019 [facility] Heart Rate 93 08/04/2019 [facility] Respitory Rate 16 08/04/2019 [facility] Height 160.02 cm 08/04/2019 [facility] Weight 102.273 08/04/2019 [facility] BMI Calculated 39.94 08/04/2019 [facility] Systolic (mm Hg) 114 [facility]23/2019 [facility] [place] [facility] Diastolic (mm Hg) 59 06/23/2019 [facility] Heart Rate 58 06/23/2019 [facility] Respitory Rate 16 06/23/2019 [facility] Height 162.56 cm 06/23/2019 [facility] Weight 75.909 06/23/2019 [facility] BMI Calculated 28.73 06/23/2019 [facility] Encounters Location Location Encounter Encounter Reason Attending [facility] Stat us Source Details Type Number For Provider Date Date Visit Outpatient [id number] [facility] 06/23 [facility] [place] [facility] Outpatient [id number] Marino 06/23 06/24 [facility] [place] [facility] [id number] Marino 07/07 [facility] [place] [facility] Outpatient [id number] Marino 07/07 07/08 [facility] [place] [facility] [id number] Marino 07/21 [facility] [place] [facility] Ambulatory [id number] Marino 07/21 07/21 [facility] [place] [facility] [id number] Marino 08/04 [facility] [place] [facility] Outpatient [id number] Marino 08/04 08/05 [facility] [place] [facility] [id number] Marino 08/07 [facility] Ambulatory [id number] Mar[place] 08/07 08/07 [facility] [place] [facility] [id number] Marino 12/08 [facility] [place] [facility] Ambulatory [id number] Marino 12/08 12/08 [facility] [place] Procedures No Data Provided for This Section Assessment and Plan No Data Provided for This Section Plan of Care No Data Provided for This Section Social History Social History Date Source Social History TypeResponse 08/04/2019 [facility] Smoking Status Former smoker; Type: Cigarettes; Exposur e to Tobacco Smoke None; Cigarette Smoking Last 365 Days No; Reg Smoking Cessation Counseling No entered on: 08/04/19 Family History No Data Provided for This Section Advance Directives No Data Provided for This Section Functional Status No Data Provided for This Section
--- OUTSIDE RECORDS SUMMARY | 2020-07-03 15:55 | XMS REPORT | Continuity of Care Document ---
:1960 Author Organization [facility] t Address [address] [place] [address] Care Team Providers Name Role Phone Geraldo Brewer Attending Clinician Problems Condition Condition Condition Status Onset Resolution Last Treating Co mments Source Name Details Category Date Date Treatment Clinician Date Pain in Pain in Diagnosis [facility] ankle Doreen kes - and joints and joints Me moria of left of left l foot foot Outpati ent Clinics Closed Closed Diagnosis Active [facility] Doreen kes - r fracture r fracture Me moria of left of left l ankle with ankle with Ou tpati routine routine ent healing, healing, Clinic s subsequent subsequent encounter encounter Drop Problem Active 2019-12-10 Memor ia attack 22:53:33 l (finding) Drop [place] attack (finding) Active Problem 12/10/2019 [facility] Dysarthria Problem Active 2019-12-10 M emoria (finding) 22:53:33 l [place] Dysarthria (finding) Active Problem 12/10/2019 [facility] Hypertensi Problem Active 2019-12-10 M emoria ve 22:53:33 l disorder, [place] systemic Hypertensi arterial ve (disorder) disorder, systemic arterial (disorder) Active Problem 12/10/2019 [facility] Hyperlipid Problem Active 2019-12-10 M emoria emia 22:53:33 l (disorder) Jose n Hyperlipid emia (disorder) Active Problem 12/10/2019 [facility] Allergies, Adverse Reactions, Alerts Allergy Allergy Status Severity Reaction(s) Onset Inactive Treating Comm ents Source Name Type Date Date Clinician No Known No Known Active [facility]ati Medicati l on on Richard Batista s s Social History Smoking Status Start Date Stop Date Source Social History 2019-08-04 18:43:52 2019-08-04 18:43:52 [facility] Medications Ordered Filled Start Stop Current Ordering Indication Dosage Frequency Signature Comments Components Source Medication Medication Date Date Medication? Clinician (SIG) Name Name Lorazepam 2019- Yes See Memoria 0.5 MG Oral 9-03 Instructio l Tablet 12:54: ns, Take 1 Kathy nn [Ativan] 00 tab po 1 hour prior to MRI, may repeat q 15 min. if still anxious, # 5 tab, 0 Refill(s), called to pharmacy Aspirin 81 2019-0 Yes 81 mg = 1 Me moria MG Enteric 8-13 tab, PO, l Coated 16:26: Daily, # [place] Tablet 00 90 tab, 3 Refill(s), other lisinopril 2019-0 Yes 20 mg = 1 Me moria 20 mg oral 8-13 tab, PO, l tablet 16:03: Daily, # Richard 00 30 tab, 0 Refill(s) amLODIPine 2019-0 Yes 5 mg = 1 Mem oria 5 mg oral 8-13 tab, PO, l tablet 16:03: Daily, 0 [place] 00 Refill(s) buPROPion 2019-0 Yes 300 mg = 1 Me moria 300 mg/24 8-13 tab, PO, l hours (XL) 16:03: Q24H, 0 Herm gloria oral 00 Refill(s) tablet, extended release sertraline 2019-0 Yes 100 mg = 1 M emoria 100 mg oral 8-13 tab, PO, l tablet 16:03: Daily, 0 [place] 00 Refill(s) simvastatin 2019-0 Yes 20 mg = 1 M emoria 20 mg oral 8-13 tab, PO, l tablet 16:03: Bedtime, 0 Kathy nn 00 Refill(s) gabapentin 2019-0 Yes 600 mg = 1 M emoria 600 MG Oral 8-13 tab, PO, l Tablet 16:03: TID, # 270 Kathy nn 00 tab, 0 Refill(s) nortriptyli 2019-0 Yes 75 mg = 1 M emoria ne 75 mg 8-13 cap, PO, l oral 16:03: Bedtime, 0 Richard capsule 00 Refill(s) doxepin 100 2019-0 Yes 100 mg = 1 Memoria mg oral 8-13 cap, PO, l capsule 16:03: Bedtime, 0 Herm gloria 00 Refill(s) Trazodone 2019-0 Yes 100 mg = 1 Me moria Hydrochlori 8-13 tab, PO, l de 100 MG 16:03: Bedtime, # He rmann Oral Tablet 00 30 tab, 0 Refill(s) tramadol Yes 50 mg = 1 David grant hydrochlori 8-13 tab, PO, l de 50 MG 16:03: Bedtime, 0 hilliard Oral Tablet 00 Refill(s) clonazePAM Yes 1 mg = 1 Mem oria 1 mg oral 8-13 tab, PO, l tablet 16:03: TID, # 270 Kathy nn 00 tab, 0 Refill(s) Sertraline Sertraline Yes Ramana not [facility] HCl HCl [facility] Topiramate Topiramate Yes Ramana not [facility] Doxepin HCl Doxepin HCl Yes Ramana not [facility] Ventolin Ventolin Yes Ramana not [facility] HFA HFA [facility] Tramadol Tramadol Yes Ramana not [facility] HCl HCl [facility] Fluticasone Fluticasone Yes Ramana not [facility] Propionate Propionate [facility] defined [facility] Nortriptyli Nortriptyli Yes Ramana not [facility] ne HCl ne HCl [facility] defined [facility] BuPROPion BuPROPion Yes Ramana not [facility] HCl ER (XL) HCl ER (XL) [facility] Clonazepam Clonazepam Yes Ramana not [facility] Trazodone Trazodone Yes Ramana not [facility] HCl HCl [facility] Gabapentin Gabapentin Yes Ramana not [facility] Meloxicam Meloxicam Yes Ramana not [facility] Santyl Santyl Yes Ramana not [facility] Propranolol Propranolol Yes Ramana not [facility] HCl HCl [facility] Ezetimibe Ezetimibe Yes Ramana not [facility] Lisinopril Lisinopril Yes Ramana not [facility] Sodium Sodium Yes Ramana not [facility] Chloride Chloride [facility] Amlodipine Amlodipine Yes Ramana not [facility] Besylate Besylate [facility] Vital Signs Vital Name Observation Time Observation Value Comments Source Systolic (mm Hg) 2019-08-04 18:13:00 David rial Richard Diastolic (mm Hg) 2019-08-04 18:13:00 [facility] orial [place] Heart Rate 2019-08-04 18:13:00 [facility] Richard Respitory Rate 2019-08-04 18:13:00 [facility]ori al [place] Height 2019-08-04 18:13:00 [facility] Weight 2019-08-04 18:13:00 [facility] BMI Calculated 2019-08-04 18:13:00 Memori al [place] Systolic (mm Hg) 2019-06-23 15:32:00 David rial Richard Diastolic (mm Hg) 2019-06-23 15:32:00 [facility] orial [place] Heart Rate 2019-06-23 15:32:00 [facility] [place] Respitory Rate 2019-06-23 15:32:00 [facility] al [place] Height 2019-06-23 15:32:00 162.56 cm [facility] Weight 2019-06-23 15:32:00 [facility] BMI Calculated 2019-06-23 15:32:00 [facility]ori al [place] Procedures This patient has no known procedures. Encounters Start End Encounter Admission Attending Care Care Encounter Source Date/Time Date/Time Type Type Clinicians Facility Department ID 2019-12-08 2019-12-08 Outpatient JOSEPH Brewer [id number] 13:00:00 13:00:00 [place] 06 Geraldo 2019-08-07 2019-08-07 Outpatient JOSEPH Brewer [id number] 09:15:00 09:15:00 [place] 04 Geraldo 2019-08-04 2019-08-04 Outpatient JOSEPH Brewer [id number] 13:00:00 23:59:59 [place] 05 Geraldo 2019-07-21 2019-07-21 [facility] [id number] 10:30:00 10:30:00 [place] 02 Geraldo 2019-07-07 2019-07-07 [facility] [id number] 11:30:00 23:59:59 Marino Geraldo 2019-06-23 2019-06-23 [facility] [id number] 10:30:00 23:59:59 Marino Geraldo 2018-07-31 2018-07-31 [facility] [id number] [facility] [address] 10:00:00 10[facility] ent Clinics Results This patient has no known results.
[2020-07-03 16:18] LABS: Absolute Lymphocytes (CBC) 5.6 K/uL (0.7-4.9); Basophils % 0.9 % (0-1.3); Hematocrit 56.8 % (36.0-45.0); Lymphocytes % 30.1 % (15.3-44.8); MPV 10.1 fL (7.6-11.3); RBC Red Blood Cell Count 6.33 M/uL (3.86-4.86)
[2020-07-03] MEDS ORDERED: MORPHINE 4 MG/ML SYR ONE (16:19)
[2020-07-03] MEDS ORDERED: ONDANSETRON 4 MG/2 ML VIAL ONE (16:20)
[2020-07-03] MEDS ORDERED: NA CHLORIDE 0.9% 1,000 ML ONE (16:20)
[2020-07-03 16:37] LABS: Albumin 4.3 g/dL (3.4-5.0); Bilirubin Direct 0.2 mg/dL (0-0.2); Bilirubin Total 0.9 mg/dL (0.2-1.0); Potassium 4.7 mmol/L (3.5-5.1); Protein, Total 9.5 g/dL (6.4-8.2)
[2020-07-03] MEDS ORDERED: METOCLOPRAMIDE 10 MG/2mL INJ ONE (17:11)
[2020-07-03] MEDS ORDERED: NA CHLORIDE 0.9% 100 ML IV ONE (17:11)
[2020-07-03] MEDS ORDERED: DIPHENHYDRAMINE 50 MG/ML VIAL ONE (17:11)
[2020-07-03 17:40] LABS: Blood Morphology Comment NOT SEEN (NOT SEEN); Platelet Estimate INCR; Platelets, Giant 1+; White Blood Cell Scan OK
--- NOTE | 2020-07-03 17:53 | RAD REPORT ---
EXAM DESCRIPTION: CT - Stone Protocol - 07/03/2020 5:42 pm CLINICAL HISTORY: abdominal pain, vomiting, diarrhea COMPARISON: Stone Protocol dated 01/02/2020 TECHNIQUE: Axial [address] imaging of the abdomen and pelvis was performed without IV contrast. No IV contrast was given because of allergy, abnormal renal function, patient refusal or physician re quest. No oral contrast. All CT scans are performed using dose optimization technique as appropriate and may include automated exposure control or mA/KV adjustment according to patient size. FINDINGS: Chronic interstitial changes noted in the lung bases. No acute finding. Liver is generous in size with prominent left lobe. This matches comparison. No focal liver lesion on noncontrast imaging. Spleen is absent. Numerous surgical clips are seen in the left upper quadrant. No acute pancreatic finding. Cholecystectomy clips are present with no biliary tree dilatation. Left kidney is incompletely rotated. Left kidney generally appear smaller and may have a partially du plicated collecting system. No hydronephrosis of either kidney. No obstructing or nonobstructing calc clark. No perinephric stranding is present. Fullness of the left adrenal gland has not changed since . No right adrenal gland abnormality. Isodense renal masses and pyelonephritis cannot be exclud ed in the absence of IV contrast. Partially filled urinary bladder shows no suspicious finding. Uteru s and ovaries also without significant finding. No gastric dilatation or wall thickening. No dilated large or small bowel loops. No active GI process seen. There is no free air, free fluid or inflammatory stranding. No mass or bulky lymphadenopathy. No omental thickening. The patient has multiple ventral hernias. Large hernia in the left upper abdominal wall is 12 cm in d iameter. The neck is at least 6- 7 cm. The left-side transverse colon and splenic flexure extend into the hernia defect. No active component. There is no edema or stranding in the herniated fat. Disc and bony degenerative changes are present. Patient has prominent degenerative change in the lowe r lumbar spine in the lower facet joints with very advanced for age degenerative change at the L5-S1 disc space. IMPRESSION: Non-contrast enhanced CT abdomen and pelvis imaging show no acute or emergent finding. Full assessment is limited is the absence of IV contrast. Patient has multiple upper abdominal ventral hernias including the large left upper quadrant hernia 1 2 cm in diameter with a 7 centimeter neck. This contains left-side transverse colon and splenic flexu re of the colon. There are no acute findings. Pattern is similar to December.
[2020-07-03] MEDS ORDERED: NA CHLORIDE 0.9% 500 ML ONE (18:00)
[2020-07-03 18:50] LABS: Urine Bacteria 20-50 /HPF (<20); Urine Culture Reflex Order REFLEXED; Urine RBC NONE SEEN /HPF (NONE SEEN)
[2020-07-03 18:58] LABS: Urine Blood NEGATIVE (NEG); Urine Glucose NEGATIVE (NEG); Urine Protein 1+ (NEG); Urine Specific Gravity 1.015 (1.005-1.030); Urine pH 7.5 (5.0-7.0)
[2020-07-03 19:13] LABS: Potassium 3.9 mmol/L (3.5-5.1)
--- NOTE | 2020-07-03 20:02 | RAD REPORT ---
EXAM DESCRIPTION: CT - Chest For Pe Angio - 07/03/2020 7:49 pm CLINICAL HISTORY: SOB, hypertension, prior splenectomy COMPARISON: Chest For Pe Angio dated 02/28/2018; Chest Single View dated 01/07/2020 TECHNIQUE: Dynamically enhanced 3 mm thick images of the chest were obtained during administration o f approximately 150mL Isovue 370 IV contrast. Coronal and oblique MIP reconstruction images were gene rated and reviewed. Exam utilizes a protocol to evaluate the pulmonary arterial tree. All CT scans are performed using dose optimization technique as appropriate and may include automated exposure control or mA/KV adjustment according to patient size. FINDINGS: No pulmonary emboli are identified. The aorta as imaged shows no acute or suspicious finding. No pericardial thickening or effusion. Left ventricular myocardium appear slightly thickened. CT is limited in assessing muscular hypertrophy. No focal mass or consolidation. Interstitial markings are prominent in the lower lung naranjo much of which is due to respiratory motion. A mild interstitial edema or infiltrate cannot be excluded. No pl eural effusion or pleural thickening. No mediastinal or hilar suspicious masses. No chest wall masses or abnormal axillary lymphadenopathy. IMPRESSION: No pulmonary emboli identified. No focal mass or consolidation. Interstitial edema or interstitial infiltrate are certainly possible. No focal consolidation.
[2020-07-03] MEDS ORDERED: PROMETHAZINE INJ 25 MG/ML AMP ONE (20:14)
--- NOTE | 2020-07-03 20:14 | ER ---
Nurse's Notes [facility] Name: Jose M Jovel Age: 59 yrs Sex: Female : 1960 Arrival Date: 07/03/2020 Time: 16:04 Bed 18 Private MD: Diagnosis: Vomiting;Diarrhea, unspecified;Dehydration;Leukocytosis;Abdominal Pain;Intractable Vomiting Presentation: 07/03 16:05 Chief complaint: EMS states: N/V/diarrhea, diffuse abdominal pain started at 1200 ca1 today. BGL at 190. Coronavirus screen: Client denies travel out of the [place] in the last 14 days. At this time, the client does not indicate any symptoms associated with coronavirus-19. Ebola Screen: Patient negative for fever greater than or equal to 101.5 degrees Fahrenheit, and additional compatible Ebola Virus Disease symptoms Patient denies exposure to infectious person. Patient denies travel to an Ebola-affected area in the 21 days before illness onset. No symptoms or risks identified at this time. Initial Sepsis Screen: Does the patient meet any 2 criteria? No. Patient's initial sepsis screen is negative. Does the patient have a suspected source of infection? No. Patient's initial sepsis screen is negative. Risk Assessment: Do you want to hurt yourself or someone else? Patient reports no desire to harm self or others. Onset of symptoms was July 03, 2020 at 12:00. 16:05 Method Of Arrival: EMS: [facility] ca1 16:05 Acuity: GUSTABO 3 ca1 Historical: - Allergies: 16:05 No Known Allergies; ca1 - PMHx: 16:05 Anxiety; Chronic pain; Diabetes - NIDDM; Hypertension; TIA; ca1 - PSHx: 16:05 bulging disc; left ankle; ca1 17:21 Spleenectomy; ca1 - Immunization history:: Adult Immunizations up to date. - Social history:: Smoking status: Patient denies any tobacco usage or history of. Screenin:15 Abuse screen: Denies threats or abuse. Denies injuries from another. Nutritional ca1 screening: No deficits noted. Tuberculosis screening: No symptoms or risk factors identified. Fall Risk IV access (20 points). Assessment: 16:15 General: Appears in no apparent distress. comfortable, Behavior is calm, cooperative, ca1 appropriate for age. Pain: Complains of pain in abdomen Pain currently is 9 out of 10 on a pain scale. Quality of pain is described as crampy, Pain began 4 hours ago. Is continuous. Neuro: Level of Consciousness is awake, alert, obeys commands, Oriented to person, place, time, situation. Cardiovascular: Heart tones S1 S2 present Capillary refill < 3 seconds Patient's skin is warm and dry. Rhythm is sinus tachycardia. Respiratory: Airway is patent Respiratory effort is even, unlabored, Respiratory pattern is regular, symmetrical, Breath sounds are clear bilaterally. GI: Abdomen is round non-distended, Pt is actively vomiting undigested food, Bowel sounds present X 4 quads. Abd is soft X 4 quads Reports diarrhea, nausea, vomiting. : No signs and/or symptoms were reported regarding the genitourinary system. EENT: No signs and/or symptoms were reported regarding the EENT system. Derm: Skin is intact, is healthy with good turgor, Skin is moist, Skin is pale. Musculoskeletal: Circulation, motion, and sensation intact. Capillary refill < 3 seconds. 16:52 Reassessment: Patient appears in no apparent distress at this time. Patient and/or ca1 family updated on plan of care and expected duration. Pain level reassessed. Patient is alert, oriented x 3, equal unlabored respirations, skin warm/dry/pink. 17:55 Reassessment: Patient appears in no apparent distress at this time. Patient and/or ca1 family updated on plan of care and expected duration. Pain level reassessed. Patient is alert, oriented x 3, equal unlabored respirations, skin warm/dry/pink. 17:55 Respiratory: Denies cough, shortness of breath. ca1 18:51 Reassessment: Patient appears in no apparent distress at this time. Patient and/or ca1 family updated on plan of care and expected duration. Pain level reassessed. Patient is alert, oriented x 3, equal unlabored respirations, skin warm/dry/pink. Patient states feeling better. 19:30 Reassessment: Patient and/or family updated on plan of care and expected duration. Pain mt2 level reassessed. Patient is alert, oriented x 3, equal unlabored respirations, skin warm/dry/pink. General: Appears uncomfortable, Behavior is cooperative. Pain: Complains of pain in abdomen Pain currently is 10 out of 10 on a pain scale. 20:30 Reassessment: Patient and/or family updated on plan of care and expected duration. Pain mt2 level reassessed. Patient is alert, oriented x 3, equal unlabored respirations, skin warm/dry/pink. General: Appears uncomfortable, Behavior is cooperative. Pain: Complains of pain in abdomen Pain currently is 5 out of 10 on a pain scale. 21:07 Reassessment: Patient and/or family updated on plan of care and expected duration. Pain mt2 level reassessed. Patient is alert, oriented x 3, equal unlabored respirations, skin warm/dry/pink. General: Appears comfortable, Behavior is cooperative. Pain: Complains of pain in abdomen Pain currently is 4 out of 10 on a pain scale. Vital Signs: 16:05 BP 106 / 65; Pulse 109; Resp 18 S; Temp 97.7(A); Pulse Ox 98% on R/A; Weight 99.79 kg ca1 (R); Height 5 ft. 3 in. (160.02 cm) (R); Pain 9/10; 16:30 BP 123 / 75; Pulse 104; Resp 16 S; Pulse Ox 98% on R/A; ca1 16:52 BP 103 / 62; Pulse 98; Resp 15 S; Pulse Ox 94% on R/A; ca1 17:55 BP 114 / 78; Pulse 108; Resp 18 S; Pulse Ox 84% on R/A; ca1 17:55 Pulse Ox 94% on 2 lpm NC; ca1 18:51 BP 112 / 83; Pulse 109; Resp 18 S; Pulse Ox 92% on 2 lpm NC; ca1 19:30 BP 114 / 67; Pulse 98; Resp 16; Pulse Ox 97% on 2 lpm NC; Pain 8/10; mt2 20:30 BP 109 / 64; Pulse 101; Resp 17; Pulse Ox 95% on 2 lpm NC; Pain 5/10; mt2 21:06 BP 119 / 69; Pulse 104; Resp 19; Pulse Ox 95% on 2 lpm NC; Pain 4/10; mt2 16:05 Body Mass Index 38.97 (99.79 kg, 160.02 cm) ca1 ED Course: 16:04 Patient arrived in ED. ca1 16:05 Arm band placed on right wrist. ca1 16:06 Triage completed. ca1 16:06 No provider procedures requiring assistance completed. Initial lab(s) drawn, by me, ca1 sent to lab. Inserted saline lock: 22 gauge in right wrist, using aseptic technique. Blood collected. 16:07 Dwayne Alvarado PA is PHCP. [facility] 16:07 Dexter Che MD is Attending Physician. jmm 16:13 Parul Membreno, RN is Primary Nurse. ca1 16:15 Patient has correct armband on for positive identification. Placed in gown. Bed in low ca1 position. Call light in reach. Side rails up X2. Pulse ox on. NIBP on. Warm blanket given. 17:05 First set of blood cultures drawn by me. ca1 17:15 Second set of blood cultures drawn by me. ca1 17:15 Inserted saline lock: 20 gauge in left antecubital area, using aseptic technique. Blood ca1 collected. 17:42 CT Stone Protocol In Process Unspecified. EDMS 17:42 Notified Nurse Practitioner and/or Physician Landscaping Supervisor of a critical lab result(s), ca1 Lactate 2.1. 18:40 Urine Microscopic Only Sent. ca1 18:40 Urine Culture Sent. ca1 18:50 Repeat lab(s) drawn. by me, sent to lab. ca1 19:49 CT Chest For PE Angio In Process Unspecified. EDMS 20:13 Isreal Barahona MD is Hospitalizing Provider. jmm 20:15 Tom Matt MD is Hospitalizing Provider. la1 21:20 Patient admitted, IV remains in place. mt2 Administered Medications: 16:14 Drug: NS 0.9% 1000 ml Route: IV; Rate: 1 bolus; Site: right wrist; ca1 17:20 Follow up: Response: No adverse reaction; IV Status: Completed infusion; IV Intake: ca1 1000ml 16:15 Drug: Zofran (Ondansetron) 4 mg Route: IVP; Site: right wrist; ca1 17:20 Follow up: Response: No adverse reaction; Nausea is decreased ca1 16:38 Drug: morphine 4 mg Route: IVP; Site: right antecubital; ca1 17:21 Follow up: Response: No adverse reaction; Pain is decreased; RASS: Alert and Calm (0) ca1 17:00 Drug: diphenhydrAMINE 25 mg Route: IVP; Site: right wrist; ca1 18:40 Follow up: Response: No adverse reaction; Marked relief of symptoms ca1 17:02 Drug: Reglan 10 mg Route: IVP; Site: right wrist; ca1 18:40 Follow up: Response: No adverse reaction; Marked relief of symptoms; Nausea is decreasedca1 17:50 Drug: NS 0.9% 500 ml Route: IV; Rate: bolus; Site: right wrist; ca1 20:00 Follow up: Response: No adverse reaction; IV Status: Completed infusion mt2 20:10 Drug: fentaNYL (PF) 25 mcg Route: IVP; Site: left antecubital; mt2 20:55 Follow up: Response: No adverse reaction; Pain is decreased mt2 20:10 Drug: Promethazine 12.5 mg Route: IVP; Site: left antecubital; mt2 20:54 Follow up: Response: No adverse reaction; Nausea is decreased mt2 20:37 Drug: Rocephin 1 grams Route: IV; Rate: calculated rate; Site: left antecubital; mt2 20:54 Follow up: Response: No adverse reaction; IV Status: Completed infusion mt2 Intake: 17:20 IV: 1000ml; Total: 1000ml. ca1 Outcome: 20:13 Decision to Hospitalize by Provider. neelam 21:19 Condition: stable mt2 21:19 Instructed on the need for admit. 21:24 Admitted to Med/surg accompanied by tech, room 404, with oxygen, with chart, Report mt2 called to RANDY AVILA 21:48 Patient left the ED. mt2 Signatures: Dispatcher [employer] EDMS Dwayne Alvarado PA PA jmm Attema, Lee, TOWER HAND-C TOWER HAND-Cla1 Parul Membreno RN RN ca1 Chaya Oconnor RN RN mt2 Corrections: (The following items were deleted from the chart) 16:17 16:15 Derm: Skin is intact, is healthy with good turgor, Skin is pink, warm \T\ dry. ca1 ca1
--- NOTE | 2020-07-03 20:14 | EDPHYS ---
Physician Documentation [facility] Name: Jose M Jovel Age: 59 yrs Sex: Female : 1960 Arrival Date: 07/03/2020 Time: 16:04 Bed 18 Private MD: DELIA Physician Dexter Che HPI: 07/03 16:07 This 59 yrs old Female presents to ER via EMS with complaints of jmm Nausea/Vomiting/Diarrhea. 16:07 The patient presents to the emergency department with vomiting, diarrhea, abdominal jmm pain, of the epigastric area and suprapubic area. Onset: The symptoms/episode began/occurred acutely, 4 hour(s) ago. Possible causes: unknown. The symptoms are aggravated by nothing. The symptoms are alleviated by nothing. Associated signs and symptoms: Pertinent positives: abdominal pain, diarrhea, vomiting. Similar episode with previous admission. . Historical: - Allergies: 16:05 No Known Allergies; ca1 - PMHx: 16:05 Anxiety; Chronic pain; Diabetes - NIDDM; Hypertension; TIA; ca1 - PSHx: 16:05 bulging disc; left ankle; ca1 17:21 Spleenectomy; ca1 - Immunization history:: Adult Immunizations up to date. - Social history:: Smoking status: Patient denies any tobacco usage or history of. ROS: 16:07 Constitutional: Negative for fever, chills, and weight loss, Cardiovascular: Negative jmm for chest pain, palpitations, and edema, Respiratory: Negative for shortness of breath, cough, wheezing, and pleuritic chest pain. 16:07 Abdomen/GI: Positive for abdominal pain, nausea and vomiting, diarrhea. 16:07 All other systems are negative. Exam: 16:07 Constitutional: This is a well developed, well nourished patient who is awake, alert, jmm and in no acute distress. Head/Face: atraumatic. Eyes: EOMI, no conjunctival erythema appreciated ENT: Moist Mucus Membranes Neck: Trachea midline, Supple Chest/axilla: Normal chest wall appearance and motion. Cardiovascular: Regular rate and rhythm. No edema appreciated Respiratory: Normal respirations, no respiratory distress appreciated 16:07 Back: Normal ROM Skin: General appearance color normal MS/ Extremity: Moves all extremities, no obvious deformities appreciated, no edema noted to the lower extremities Neuro: Awake and alert, normal gait Psych: Behavior is normal, Mood is normal, Patient is cooperative and pleasant 16:07 Abdomen/GI: Inspection: abdomen appears normal, Bowel sounds: normal, Palpation: soft, in all quadrants, moderate abdominal tenderness, in the epigastric area and suprapubic area. Vital Signs: 16:05 BP 106 / 65; Pulse 109; Resp 18 S; Temp 97.7(A); Pulse Ox 98% on R/A; Weight 99.79 kg ca1 (R); Height 5 ft. 3 in. (160.02 cm) (R); Pain 9/10; 16:30 BP 123 / 75; Pulse 104; Resp 16 S; Pulse Ox 98% on R/A; ca1 16:52 BP 103 / 62; Pulse 98; Resp 15 S; Pulse Ox 94% on R/A; ca1 17:55 BP 114 / 78; Pulse 108; Resp 18 S; Pulse Ox 84% on R/A; ca1 17:55 Pulse Ox 94% on 2 lpm NC; ca1 18:51 BP 112 / 83; Pulse 109; Resp 18 S; Pulse Ox 92% on 2 lpm NC; ca1 19:30 BP 114 / 67; Pulse 98; Resp 16; Pulse Ox 97% on 2 lpm NC; Pain 8/10; mt2 20:30 BP 109 / 64; Pulse 101; Resp 17; Pulse Ox 95% on 2 lpm NC; Pain 5/10; mt2 21:06 BP 119 / 69; Pulse 104; Resp 19; Pulse Ox 95% on 2 lpm NC; Pain 4/10; mt2 16:05 Body Mass Index 38.97 (99.79 kg, 160.02 cm) ca1 MDM: 16:08 Patient medically screened. [facility] 20:09 Data reviewed: vital signs, nurses notes. Counseling: I had a detailed discussion with neelam the patient and/or guardian regarding: the historical points, exam findings, and any diagnostic results supporting the discharge/admit diagnosis, radiology results, the need for further work-up and treatment in the hospital. ED course: I discussed the patient with Camilo whom accepted the patient to Dr. Lexa preciado. . 07/03 16:07 Order name: Basic Metabolic Panel; Complete Time: 16:50 ca1 07/03 16:07 Order name: CBC with Diff; Complete Time: 17:46 ca1 07/03 16:07 Order name: Hepatic Function; Complete Time: 16:50 [facility] 07/03 16:07 Order name: Lipase; Complete Time: 16:50 [facility] 07/03 16:30 Order name: Urine Microscopic Only; Complete Time: 19:21 [facility] 07/03 16:30 Order name: Urine Culture [facility] 07/03 16:54 Order name: Procalcitonin; Complete Time: 17:54 [facility] 07/03 16:54 Order name: Lactate; Complete Time: 17:46 [facility] 07/03 16:54 Order name: Blood Culture Adult (2) [facility] 07/03 17:40 Order name: CBC Smear Scan; Complete Time: 17:46 [facility] 07/03 18:34 Order name: BMP; Complete Time: 19:22 [facility] 07/03 18:37 Order name: Urine Dipstick--Ancillary (enter results); Complete Time: 19:21 [place] 07/03 20:31 Order name: Lactate Sepsis 2 HR Follow-up; Complete Time: 20:43 [facility] 07/03 20:34 Order name: COVID-19 bb 07/03 16:07 Order name: IV Saline Lock; Complete Time: 16:07 [facility] 07/03 16:07 Order name: Labs collected and sent; Complete Time: 16:07 [facility] 07/03 16:08 Order name: Urine Dipstick-Ancillary (obtain specimen); Complete Time: 18:40 [facility] 07/03 16:54 Order name: CT Stone Protocol; Complete Time: 17:54 [facility] 07/03 19:23 Order name: CT Chest For PE Angio; Complete Time: 20:03 jm Administered Medications: 16:14 Drug: NS 0.9% 1000 ml Route: IV; Rate: 1 bolus; Site: right wrist; ca1 17:20 Follow up: Response: No adverse reaction; IV Status: Completed infusion; IV Intake: ca1 1000ml 16:15 Drug: Zofran (Ondansetron) 4 mg Route: IVP; Site: right wrist; ca1 17:20 Follow up: Response: No adverse reaction; Nausea is decreased ca1 16:38 Drug: morphine 4 mg Route: IVP; Site: right antecubital; ca1 17:21 Follow up: Response: No adverse reaction; Pain is decreased; RASS: Alert and Calm (0) ca1 17:00 Drug: diphenhydrAMINE 25 mg Route: IVP; Site: right wrist; ca1 18:40 Follow up: Response: No adverse reaction; Marked relief of symptoms ca1 17:02 Drug: Reglan 10 mg Route: IVP; Site: right wrist; ca1 18:40 Follow up: Response: No adverse reaction; Marked relief of symptoms; Nausea is decreasedca1 17:50 Drug: NS 0.9% 500 ml Route: IV; Rate: bolus; Site: right wrist; ca1 20:00 Follow up: Response: No adverse reaction; IV Status: Completed infusion mt2 20:10 Drug: fentaNYL (PF) 25 mcg Route: IVP; Site: left antecubital; mt2 20:55 Follow up: Response: No adverse reaction; Pain is decreased mt2 20:10 Drug: Promethazine 12.5 mg Route: IVP; Site: left antecubital; mt2 20:54 Follow up: Response: No adverse reaction; Nausea is decreased mt2 20:37 Drug: Rocephin 1 grams Route: IV; Rate: calculated rate; Site: left antecubital; mt2 20:54 Follow up: Response: No adverse reaction; IV Status: Completed infusion mt2 Disposition: 07/04 11:59 Co-signature as Attending Physician, Dexter Che MD I agree with the assessment and [facility] plan of care. Disposition: 07/03/20 20:13 Hospitalization ordered by Tom Matt for Observation. Preliminary diagnosis are Vomiting, Diarrhea, unspecified, Dehydration, Leukocytosis, Abdominal Pain, Intractable Vomiting. - Bed requested for Telemetry/MedSurg (observation). - Status is Observation. mt2 - Condition is Stable. - Problem is an acute exacerbation. - Symptoms have improved. Signatures: Dispatcher [employer] Dexter Gandhi MD MD cha Mickail, Joel, PA PA Camilo Billings, [employer]-C [employer] SAL[employer] CONSULTANT-Cla1 Mala Gutierrez, RN RN Gerhard Velasco mw2 Parul Membreno RN RN ca1 Chaya Oconnor RN RN mt2 Corrections: (The following items were deleted from the chart) 07/03 17:40 16:31 Abdomen Pelvis W Con+CT.RAD.BRZ ordered. EDMS EDMS 18:37 18:27 Chest Single View+RAD.RAD.BRZ ordered. EDMS EDMS 20:15 20:13 Hospitalization Ordered by Isreal Barahona MD for Observation. Preliminary la1 diagnosis is Vomiting; Diarrhea, unspecified; Dehydration; Leukocytosis; Abdominal Pain; Intractable Vomiting. Bed requested for Telemetry/MedSurg (observation). Status is Observation. Condition is Stable. Problem is an acute exacerbation. Symptoms have improved. jmm 21:08 20:15 07/03/2020 20:13 Hospitalization Ordered by Tom Matt MD for Observation. mw2 Preliminary diagnosis is Vomiting; Diarrhea, unspecified; Dehydration; Leukocytosis; Abdominal Pain; Intractable Vomiting. Bed requested for Telemetry/MedSurg (observation). Status is Observation. Condition is Stable. Problem is an acute exacerbation. Symptoms have improved. la1 21:12 21:08 07/03/2020 20:13 Hospitalization Ordered by Tom Matt MD for Observation. cg Preliminary diagnosis is Vomiting; Diarrhea, unspecified; Dehydration; Leukocytosis; Abdominal Pain; Intractable Vomiting. Bed requested for Telemetry/MedSurg (observation). Status is Observation. Condition is Stable. Problem is an acute exacerbation. Symptoms have improved. mw2 21:48 21:12 07/03/2020 20:13 Hospitalization Ordered by Tom Matt MD for Observation. mt2 Preliminary diagnosis is Vomiting; Diarrhea, unspecified; Dehydration; Leukocytosis; Abdominal Pain; Intractable Vomiting. Bed requested for Telemetry/MedSurg (observation). Status is Observation. Condition is Stable. Problem is an acute exacerbation. Symptoms have improved. cg
[2020-07-03] MEDS ORDERED: FENTANYL CITR 100 MCG/2 ML ONE (20:15)
[2020-07-03] MEDS ORDERED: NA CHLORIDE 0.9% 50 ML IV ONE (20:15)
[2020-07-03] MEDS ORDERED: CEFTRIAXONE/SWI 1gm 1 GM/10 ML SYR ONE (20:42)
--- NOTE | 2020-07-03 21:05 | P.HP ---
Certification for Inpatient Patient admitted to: Observation With expected LOS: <2 Midnights Patient will require the following post-hospital care: None Practitioner: I am a practitioner with admitting privileges, knowledge of patient current condition, hospital course, and medical plan of care. Services: Services provided to patient in accordance with Admission requirements found in Title 42 Section 412.3 of the Code of Federal Regulations <[email or web address] - Last Filed: 07/03/20 20:58> Patient History Date of Service: 07/03/20 Primary Care Provider: Dr. Small Reason for admission: UTI/Gastroenteritis History of Present Illness: 59-year-old female, diabetes mellitus type 2 presents emergency department for nausea, vomiting, diarrhea. Patient reports that she had sudden onset nausea vomiting diarrhea around noon today. Patient reports a similar episode previously this year when she is found to have urinary tract infection. Patient does have a large, known ventral hernia. During her evaluation in the department patient is found to have mild acute kidney injury, leukocytosis with white blood cell count of 18, in dehydration. Patient still with persistent abdominal pain after multiple rounds of pain medication and still having some nausea/vomiting after multiple rounds of nausea medication. Patient also found to have 20/50 bacteria in her urine on the urine microscopy. ED provider wishes to admit patient for further evaluation and management. When I saw the patient in the emergency department she was awake, alert, oriented x4. Patient reports [id number] abdominal pain with nausea vomiting. Also reports diarrhea. Vital signs stable at time of evaluation. Patient does not appear septic at this time. Patient be admitted under observation for further management. - Past Medical/Surgical History Diabetic: No -: HTN -: High cholesterol -: Hernia -: Chronic back pain -: DJD -: Depression -: GERD -: Diabetes mellitus type 2 -: Arthritis -: sx to remove cyst on tail of pancrease -: Hernia Repair -: Edith -: lap Band and removal -: Splenectomy Psychosocial/ Personal History: patient lives with family - Family History Mother -: Heart disease, Diabetes, Stroke - Social History Alcohol use: No CD- Drugs: No Caffeine use: Yes Place of Residence: Home <Camilo Singh - Last Filed: 07/03/20 20:58> Date of Service: 07/07/20 <Tom Matt - Last Filed: 07/07/20 20:34> Allergies No Known Allergies Allergy (Verified 01/03/20 00:18) Home Medications: Bupropion *Xl* [Wellbutrin XL*] 300 mg PO DAILY 01/03/20 Gabapentin 600 mg PO TID 01/03/20 Nortriptyline HCl [Pamelor] 75 mg PO BEDTIME 01/03/20 Simvastatin 20 mg PO BEDTIME 01/03/20 Tramadol HCl [Ultram] 50 mg PO TID 01/03/20 clonazePAM [Clonazepam] 0.5 mg PO TID 01/03/20 Doxepin HCl 100 mg PO BEDTIME PRN PRN 07/03/20 Fluticasone [Flonase 50MCG Nasal [place]*] 1 sprays NS BIDP PRN 07/03/20 Lisinopril [Zestril] 20 mg PO DAILY 07/03/20 Sertraline [Zoloft*] 100 mg PO DAILY 07/03/20 glipiZIDE [Glipizide] 10 mg PO BIDWM 07/03/20 Ciprofloxacin HCl 500 mg PO BID 5 Days #10 tablet 07/05/20 Ondansetron [Zofran] 4 mg PO Q6H PRN #15 tab 07/05/20 metroNIDAZOLE [Flagyl] 500 mg PO Q8H 5 Days #24 tablet 07/05/20 Review of Systems 10-point ROS is otherwise unremarkable Gastrointestinal: Nausea, Vomiting, Abdominal Pain, Diarrhea <Camilo Singh - Last Filed: 07/03/20 20:58> Physical Examination - Physical Exam General: Alert, In no apparent distress, Oriented x3 HEENT: Atraumatic, Normocephalic, PERRLA, Other (MM dry) Neck: Supple Respiratory: Clear to auscultation bilaterally, Normal air movement Cardiovascular: Normal pulses, Regular rate/rhythm, Normal S1 S2 Capillary refill: <2 Seconds Gastrointestinal: No tenderness, No rebound, No guarding, Hyperactive, Masses (hernias) Musculoskeletal: No contractures, No erythema Integumentary: No significant lesion, No tenderness/swelling, No erythema Neurological: Normal speech, Normal strength at 5/5 x4 extr, Normal tone, Sensation intact - Studies Laboratory Data (last 24 hrs) 07/03/20 18:48: Sodium 141, Potassium 3.9, BUN 16, Creatinine 1.44 H, Glucose 138 H 07/03/20 16:13: WBC 18.6 H, Hgb 18.4 H, Hct 56.8 H, Plt Count 447 H 07/03/20 16:13: Sodium 138, Potassium 4.7, BUN 17, Creatinine 1.72 H, Glucose 177 H, Total Bilirubin 0.9, AST 19, ALT 25, Alkaline Phosphatase 143 H, Lipase 126 <Camilo Singh - Last Filed: 07/03/20 20:58> Assessment and Plan - Plan Assessment N/V/D and Leukocytosis likely secondary to gastroenteritis Urinary tract infection CHRISTOPHER NIDDM Hypertension hyperlipidemia Plan N/V/D and Leukocytosis likely secondary to gastroenteritis: Blood cultures obtained, patient with large ventral hernia she has been aware of for some time with no acute component, no blood in stool/melena, continue with rocephin and flagyl at this time, fluids, pain meds, nausea meds PRN. DVT prophylaxis lovenox 40mg subq daily. Will obtain stool studies. Urinary tract infection CHRISTOPHER: Continue with hydration throughout the night, anticipate this will resolve, consult nephrology as needed. NIDDM: ACHS accuchecks, Sliding scale insulin therapy, obtain A1c with morning labs Hypertension: obtain and continue home meds hyperlipidemia: obtain and continue home meds Discharge Plan: Home Plan to discharge in: 24 Hours - Advance Directives Does patient have a Living Will: No Does patient have a Durable POA for Healthcare: No - Code Status/Comfort Care Code Status Assessed: Yes (full code) Critical Care: No Time Spent Managing Pts Care (In Minutes): 55 <Camilo Singh - Last Filed: 07/03/20 20:58> Physician Review Additional Text: I reviewed the plan of care for this patient on 07/03/20 by Camilo Coles, and I agree with the management as noted above. <Tom Matt - Last Filed: 07/07/20 20:34>
[2020-07-03] MEDS ORDERED: ACETAMINOPHEN 500 MG TAB PO PRN (21:51)
[2020-07-03] MEDS: INSULIN -REGULAR HUMAN 50 UNIT/0.5 ML ML SQ SCH (21:51)
[2020-07-03] MEDS ORDERED: PROMETHAZINE INJ 25 MG/ML AMP IV PRN (21:51)
[2020-07-03] MEDS: NA CHLORIDE 0.9% 1,000 ML IV SCH (22:24)
[2020-07-03] MEDS: HEPARIN 5000 UNIT/ML 1 ML VIAL SQ SCH (22:24)
[2020-07-04 00:58] VITALS: BMI 37.4
[2020-07-04] MEDS: METRONIDAZOLE 500mg IVPB 500 MG/100 ML BAG IV SCH ×3 (02:55→16:18)
[2020-07-04] MEDS: MORPHINE 2 MG/ML SYR IV PRN ×3 (02:55→16:06)
[2020-07-04] MEDS: ONDANSETRON 4 MG/2 ML VIAL IV PRN ×2 (02:56→16:18)
[2020-07-04 03:57] LABS: Absolute Lymphocytes (CBC) 5.1 K/uL (0.7-4.9); Basophils % 0.9 % (0-1.3); Lymphocytes % 29.5 % (15.3-44.8); MPV 10.5 fL (7.6-11.3); RBC Red Blood Cell Count 5.09 M/uL (3.86-4.86)
[2020-07-04 04:08] LABS: Magnesium 2.1 mg/dL (1.8-2.4); Potassium 3.9 mmol/L (3.5-5.1)
[2020-07-04] MEDS: INSULIN -REGULAR HUMAN 50 UNIT/0.5 ML ML SQ SCH ×4 (07:30→21:00)
[2020-07-04] MEDS: NA CHLORIDE 0.9% 1,000 ML IV SCH ×2 (08:17→22:14)
[2020-07-04] MEDS: CEFTRIAXONE/SWI 1gm 1 GM/10 ML SYR IV SCH ×2 (08:19→22:13)
[2020-07-04] MEDS: HEPARIN 5000 UNIT/ML 1 ML VIAL SQ SCH ×2 (08:19→22:11)
[2020-07-04] MEDS ORDERED: POTASSIUM CL SA 10 MEQ TAB PO ONE (10:43)
--- NOTE | 2020-07-04 17:34 | P.PN ---
Subjective Date of Service: 07/04/20 Primary Care Provider: Dr. Small Chief Complaint: UTI/Gastroenteritis patient reports improvement in symptoms, but does continue with mild abdominal discomfort, has regained some of her appetite and would like to eat Physical Examination - Vital Signs Temperature: 97.2 F Blood Pressure: 121/74 Pulse: 102 Respirations: 16 Pulse Ox (%): 95 - Physical Exam General: In no apparent distress HEENT: EOMI, Sclerae nonicteric Neck: Supple Respiratory: Clear to auscultation bilaterally, Normal air movement Cardiovascular: No edema Capillary refill: <2 Seconds Gastrointestinal: Hypoactive, Soft and benign Musculoskeletal: No erythema, No tenderness Integumentary: No rashes Neurological: Normal speech, Normal affect - Studies Laboratory Data (last 24 hrs) 07/03/20 18:48: Sodium 141, Potassium 3.9, BUN 16, Creatinine 1.44 H, Glucose 138 H 07/03/20 16:13: WBC 18.6 H, Hgb 18.4 H, Hct 56.8 H, Plt Count 447 H Assessment & Plan Physician Review: Patient Assessed, Agree with Above Assessment and Plan Physician Review Additional Text: Metabolic encephalopathy secondary to urinary tract infection DVT of the right upper extremity Diabetes mellitus type 2 Hypertension Hyperlipidemia Parkinson's Plan Metabolic encephalopathy secondary to urinary tract infection: Blood cultures and urine cultures obtained in the emergency department. Continue with Levaquin at this time as patient is allergic to penicillins and could potentially have pneumonia as well. Continue gentle hydration throughout the evening. No hypotension, end-organ damage at this time. Will continue to monitor patient closely. DVT of the right upper extremity: reportedly was taking Eliquis, will need to confirm Diabetes mellitus type 2: A.c. HS Accu-Cheks sliding scale insulin therapy. Hypertension: BP low-normal, will hold home BP meds for now Hyperlipidemia: continue home statin Parkinson's: continue home meds Dispo: back to [facility] 24-48hrs Time Spent Managing Pts Care (In Minutes): 35
[2020-07-04] MEDS ORDERED: DOXEPIN HCL 25 MG CAP PO PRN (19:22)
[2020-07-04] MEDS ORDERED: NORTRIPTYLINE HCL 25 MG CAP PO SCH (21:00)
[2020-07-04] MEDS ORDERED: ATORVASTATIN 10 MG TAB PO SCH (21:00)
[2020-07-04] MEDS: clonazePAM 1 MG TAB PO SCH (22:09)
[2020-07-05] MEDS: METRONIDAZOLE 500mg IVPB 500 MG/100 ML BAG IV SCH ×2 (00:38→08:18)
[2020-07-05] MEDS: MORPHINE 2 MG/ML SYR IV PRN ×2 (00:49→12:24)
[2020-07-05] MEDS: ONDANSETRON 4 MG/2 ML VIAL IV PRN (00:50)
[2020-07-05 04:11] LABS: Hematocrit 44.6 % (36.0-45.0); RBC Red Blood Cell Count 4.87 M/uL (3.86-4.86)
[2020-07-05] MEDS: INSULIN -REGULAR HUMAN 50 UNIT/0.5 ML ML SQ SCH ×2 (07:30→11:30)
[2020-07-05] MEDS: clonazePAM 1 MG TAB PO SCH (08:18)
[2020-07-05] MEDS: CEFTRIAXONE/SWI 1gm 1 GM/10 ML SYR IV SCH (08:18)
[2020-07-05] MEDS: NA CHLORIDE 0.9% 1,000 ML IV SCH ×2 (08:20→13:51)
[2020-07-05] MEDS: HEPARIN 5000 UNIT/ML 1 ML VIAL SQ SCH (08:20)
[2020-07-05] MEDS ORDERED: SERTRALINE HCL 100 MG TAB PO SCH (09:00)
[2020-07-05] MEDS ORDERED: BUPROPION HCL XL 150 MG TAB PO SCH (09:00)
[2020-07-05 10:12] VITALS: O2SAT 93
[2020-07-05 14:17] VITALS: BP 117/62; TEMP 97.7
--- NOTE | 2020-07-05 19:22 | P.DS ---
Admission Date: 07/03/20 Discharge Date: 07/05/20 Primary Care Provider: Dr. Small Disposition: ROUTINE DISCHARGE Discharge Condition: GOOD Reason for Admission: UTI/Gastroenteritis Procedures: IMPRESSION: Non-contrast enhanced CT abdomen and pelvis imaging show no acute or emergent finding. Full assessment is limited is the absence of IV contrast. Patient has multiple upper abdominal ventral hernias including the large left upper quadrant hernia 12 cm in diameter with a 7 centimeter neck. This contains left-side transverse colon and splenic flexure of the colon. There are no acute findings. Pattern is similar to December. CT chest FINDINGS: No pulmonary emboli are identified. The aorta as imaged shows no acute or suspicious finding. No pericardial thickening or effusion. Left ventricular myocardium appear slightly thickened. CT is limited in assessing muscular hypertrophy. No focal mass or consolidation. Interstitial markings are prominent in the lower lung naranjo much of which is due to respiratory motion. A mild interstitial edema or infiltrate cannot be excluded. No pleural effusion or pleural thickening. No mediastinal or hilar suspicious masses. No chest wall masses or abnormal axillary lymphadenopathy. IMPRESSION: No pulmonary emboli identified. No focal mass or consolidation. Interstitial edema or interstitial infiltrate are certainly possible. No focal consolidation Problem List: N/V/D and Leukocytosis likely secondary to gastroenteritis Urinary tract infection CHRISTOPHER NIDDM Hypertension hyperlipidemia Brief History of Present Illness: 59-year-old F, presenting with sudden onset nausea vomiting diarrhea around noon on day of admission. Patient reports a similar episode previously this year when she is found to have urinary tract infection. Patient does have a large, known ventral hernia. During her evaluation in the department patient is found to have mild acute kidney injury, leukocytosis with white blood cell count of 18, and dehydration. Patient continues to havepersistent abdominal pain after multiple rounds of pain medication and still having some nausea/vomiting after multiple rounds of nausea medication. Patient also found to have 20/50 bacteria in her urine on the urine microscopy. Hospital Course: Patient was started on Rocephin and Flagyl for possible gastroenteritis/diverticulitis and UTI. Over the course of her hospitalization she slowly continued to improve with this regimen and some IVF. Her diet was slowly advanced and on day of discharge (07/05/20) she reported feeling much better and able to tolerate full liquid diet. She remained afebrile and reported she was ready to be discharged home. She was discharged with 5 more days of ci pro & flagyl PO and zofran. She was instructed to slowly advance diet at home and f/u with PCP within 1 week. Patient expressed understanding and agreed with plan. Vital Signs/Physical Exam: Temp Pulse Resp BP Pulse Ox 97.7 F 104 H 16 117/62 93 07/05/20 12:00 07/05/20 12:00 07/05/20 12:54 07/05/20 12:00 07/05/20 12:54 General: Alert, In no apparent distress HEENT: Mucous membr. moist/pink, EOMI Respiratory: Clear to auscultation bilaterally, Normal air movement Cardiovascular: No edema, Regular rate/rhythm, Normal S1 S2 Capillary refill: <2 Seconds Gastrointestinal: Normal bowel sounds, Non-distended, No rebound, No guarding, Tenderness (mild, LUQ, LLQ) Musculoskeletal: No erythema Integumentary: No rashes, No breakdown Neurological: Normal speech, Normal affect Laboratory Data at Discharge: WBC 14.1 K/uL (4.3-10.9) H D 07/05/20 03:20 Hgb 14.3 g/dL (12.0-15.0) 07/05/20 03:20 Hct 44.6 % (36.0-45.0) 07/05/20 03:20 Plt Count 334 K/uL (152-406) 07/05/20 03:20 Sodium 143 mmol/L (136-145) 07/05/20 03:20 Potassium 4.0 mmol/L (3.5-5.1) 07/05/20 03:20 BUN 9 mg/dL (7-18) 07/05/20 03:20 Creatinine 1.04 mg/dL (0.55-1.3) 07/05/20 03:20 Glucose 112 mg/dL (74-106) H 07/05/20 03:20 Magnesium 2.1 mg/dL (1.8-2.4) 07/04/20 03:37 Total Bilirubin 0.9 mg/dL (0.2-1.0) 07/03/20 16:13 AST 19 U/L (15-37) 07/03/20 16:13 ALT 25 U/L (12-78) 07/03/20 16:13 Alkaline Phosphatase 143 U/L (45-117) H 07/03/20 16:13 Lipase 126 U/L (73-393) 07/03/20 16:13 Home Medications: Bupropion *Xl* [Wellbutrin XL*] 300 mg PO DAILY 01/03/20 Gabapentin 600 mg PO TID 01/03/20 Nortriptyline HCl [Pamelor] 75 mg PO BEDTIME 01/03/20 Simvastatin 20 mg PO BEDTIME 01/03/20 Tramadol HCl [Ultram] 50 mg PO TID 01/03/20 clonazePAM [Clonazepam] 0.5 mg PO TID 01/03/20 Doxepin HCl 100 mg PO BEDTIME PRN PRN 07/03/20 Fluticasone [Flonase 50MCG Nasal [place]*] 1 sprays NS BIDP PRN 07/03/20 Lisinopril [Zestril] 20 mg PO DAILY 07/03/20 Sertraline [Zoloft*] 100 mg PO DAILY 07/03/20 glipiZIDE [Glipizide] 10 mg PO BIDWM 07/03/20 Ciprofloxacin HCl 500 mg PO BID 5 Days #10 tablet 07/05/20 Ondansetron [Zofran] 4 mg PO Q6H PRN #15 tab 07/05/20 metroNIDAZOLE [Flagyl] 500 mg PO Q8H 5 Days #24 tablet 07/05/20 New Medications: Ciprofloxacin HCl 500 mg PO BID 5 Days #10 tablet metroNIDAZOLE [Flagyl] 500 mg PO Q8H 5 Days #24 tablet Ondansetron [Zofran] 4 mg PO Q6H PRN #15 tab PRN Reason: Nausea / Vomiting Patient Discharge Instructions: follow up with PCP within 1 week Diet: ADA Activity: Ad ewelina Time spent managing pt's care (in minutes): 45
== END 2020-07-05 17:00 | disposition home or self-care (01) ==
LOC: ER 15:52 → ERHOLD 20:51 → 4TH 21:14
PROVIDERS: ADMIT Hospitalist; ATTEND Hospitalist
DX: N39.0 Urinary tract infection, site not specified (principal); N17.9 Acute kidney failure, unspecified; G93.41 Metabolic encephalopathy; E86.0 Dehydration; D72.829 Elevated white blood cell count, unspecified; R11.2 Nausea with vomiting, unspecified; R19.7 Diarrhea, unspecified; K43.9 Ventral hernia without obstruction or gangrene; E11.9 Type 2 diabetes mellitus without complications; I10 Essential (primary) hypertension; E78.5 Hyperlipidemia, unspecified; E78.00 Pure hypercholesterolemia, unspecified; K21.9 Gastro-esophageal reflux disease without esophagitis; M19.90 Unspecified osteoarthritis, unspecified site; M54.9 Dorsalgia, unspecified; G89.29 Other chronic pain; I82.621 Acute embolism and thrombosis of deep veins of right upper extremity; G20 Parkinson's disease; F41.9 Anxiety disorder, unspecified; F32.9 Major depressive disorder, single episode, unspecified; Z20.828 Contact with and (suspected) exposure to other viral communicable diseases; Z90.49 Acquired absence of other specified parts of digestive tract; Z86.73 Personal history of transient ischemic attack (TIA), and cerebral infarction without residual deficits; Z82.3 Family history of stroke; Z83.3 Family history of diabetes mellitus; Z82.49 Family history of ischemic heart disease and other diseases of the circulatory system
CPT/HCPCS: 87040 ×2; 87088; 85025 ×2; 87086; 80048 ×4; 36415 ×2; 83735; 82947 ×7; 80076; 83605 ×2; 83036; 85027; 83690; 84145; 76377; 71275; 74176; 99285; U0003; Q9967; J2765; J2550; J1200; J1644 ×4; J3010; J2270 ×5; J0696 ×4; J7040; J7030 ×5; J2405 ×4; G0378 ×4; 81003; 81015

== ENCOUNTER 2021-07-29 19:21 | Inpatient (IN) | payer OTHER ==
[2021-07-29] MEDS ORDERED: ALBUTEROL INHALER 60 PUFF/8 GM IH ONE (20:14)
[2021-07-29] MEDS ORDERED: HYDROCORTISONE SUC 100 MG INJ ONE (20:14)
[2021-07-29] MEDS ORDERED: LORazepam 2 MG/ML VIAL ONE (20:17)
[2021-07-29 20:34] LABS: Protime INR 1.27
[2021-07-29 20:35] LABS: ALT/SGPT 43 U/L (12-78); AST/SGOT 64 U/L (15-37); Albumin 3.4 g/dL (3.4-5.0); Alkaline Phosphatase 103 U/L (45-117); BUN Blood Urea Nitrogen 63 mg/dL (7-18); Bicarbonate 16 mmol/L (21-32); Bilirubin Direct 0.2 mg/dL (0-0.2); Bilirubin Total 0.5 mg/dL (0.2-1.0); Glucose Level 305 mg/dL (74-106); Potassium 4.5 mmol/L (3.5-5.1); Protein, Total 8.7 g/dL (6.4-8.2); Sodium Level 133 mmol/L (136-145); Troponin (Emerg Dept Use Only) < 0.02 ng/mL (0.0-0.045)
[2021-07-29 20:48] LABS: Absolute Lymphocytes (CBC) 1.7 K/uL (0.7-4.9); Basophils % 0.5 % (0-1.3); Hematocrit 47.4 % (36.0-45.0); Lymphocytes % 9.3 % (15.3-44.8); RBC Red Blood Cell Count 5.42 M/uL (3.86-4.86)
--- NOTE | 2021-07-29 20:59 | EDPHYS ---
Physician Documentation [facility] Name: Jose M Jovel Age: 60 yrs Sex: Female : 1960 Arrival Date: 07/29/2021 Time: 19:31 Bed 5 Private MD: ED Physician Kael Ferro HPI: 07/29 19:36 This 60 yrs old Female presents to ER via EMS with complaints of Shortness of mh7 Breath. 19:36 The patient has shortness of breath at rest, with light activity. Onset: The mh7 symptoms/episode began/occurred 3 week(s) ago, and became worse today. Duration: The symptoms are continuous, and are steadily getting worse. The patient's shortness of breath is aggravated by coughing, exertion, light activity, is alleviated by nothing. Associated signs and symptoms: Pertinent positives: productive cough, Pertinent negatives: chest pain, non-productive cough, diaphoresis, dizziness, fever, hemoptysis, loss of consciousness, nausea, numbness in extremities, visual changes, vomiting. Severity of symptoms: At their worst the symptoms were moderate today, in the emergency department the symptoms are unchanged despite EMS interventions. Historical: - Allergies: 20:16 No Known Allergies; ea - PMHx: 20:16 Anxiety; Chronic pain; Diabetes - NIDDM; Hypertension; TIA; ea - Immunization history:: Adult Immunizations unknown. - Social history:: Smoking status: unknown. ROS: 19:36 Constitutional: Negative for fever, chills, and weight loss, Eyes: Negative for injury, mh7 pain, redness, and discharge, ENT: Negative for injury, pain, and discharge, Neck: Negative for injury, pain, and swelling, Cardiovascular: Negative for chest pain, palpitations, and edema, Abdomen/GI: Negative for abdominal pain, nausea, vomiting, diarrhea, and constipation, Back: Negative for injury and pain, : Negative for injury, bleeding, discharge, and swelling, MS/Extremity: Negative for injury and deformity, Skin: Negative for injury, rash, and discoloration, Neuro: Negative for headache, weakness, numbness, tingling, and seizure, Psych: Negative for depression, anxiety, suicide ideation, homicidal ideation, and hallucinations, Allergy/Immunology: Negative for hives, rash, and allergies, Endocrine: Negative for neck swelling, polydipsia, polyuria, polyphagia, and marked weight changes, Hematologic/Lymphatic: Negative for swollen nodes, abnormal bleeding, and unusual bruising. Exam: 19:36 Head/Face: Normocephalic, atraumatic. Eyes: Pupils equal round and reactive to light, mh7 extra-ocular motions intact. Lids and lashes normal. Conjunctiva and sclera are non-icteric and not injected. Cornea within normal limits. Periorbital areas with no swelling, redness, or edema. Neck: Trachea midline, no thyromegaly or masses palpated, and no cervical lymphadenopathy. Supple, full range of motion without nuchal rigidity, or vertebral point tenderness. No Meningismus. Chest/axilla: Normal chest wall appearance and motion. Nontender with no deformity. No lesions are appreciated. 19:36 Abdomen/GI: Soft, non-tender, with normal bowel sounds. No distension or tympany. No guarding or rebound. No evidence of tenderness throughout. Back: No spinal tenderness. No costovertebral tenderness. Full range of motion. Skin: Warm, dry with normal turgor. Normal color with no rashes, no lesions, and no evidence of cellulitis. MS/ Extremity: Pulses equal, no cyanosis. Neurovascular intact. Full, normal range of motion. Neuro: Awake and alert, GCS 15, oriented to person, place, time, and situation. Cranial nerves II-XII grossly intact. Motor strength 5/5 in all extremities. Sensory grossly intact. Cerebellar exam normal. Normal gait. 19:36 Constitutional: The patient appears alert, awake, anxious, in obvious distress, mildly distressed, obviously ill. 19:36 Cardiovascular: Rate: tachycardic, Rhythm: regular, Pulses: no pulse deficits are appreciated, Heart sounds: normal, normal S1and S2, Edema: is not appreciated, JVD: is not appreciated. 19:36 Respiratory: moderate respiratory distress is noted, Respirations: prolonged exhalation, that is moderate, tachypnea, that is moderate, Breath sounds: decreased breath sounds, that are moderate, are located in both bases, rhonchi, that are moderate, are scattered, Respiratory rate: 38 19:36 Psych: Behavior/mood is anxious, Affect is animated, Oriented to person, place, time, Patient has no thoughts/intents to harm self or others. Judgement / Insight is normal. Memory is normal. Delusions/hallucinations are not present. Vital Signs: 19:48 BP 124 / 88; Pulse 127; Resp 38; Temp 98.4; Pulse Ox 77% ; Weight 95.25 kg; Height 5 ea ft. 2 in. (157.48 cm); 19:48 Body Mass Index 38.41 (95.25 kg, 157.48 cm) ea MDM: 20:55 Differential diagnosis: Anemia Anxiety Reaction asthma, Bronchitis CHF exacerbation, mh7 Chronic Obstructive Pulmonary Disease Myocardial Infarction pneumonia, Psychogenic pulmonary edema, Pulmonary Embolism reactive airway disease. Data reviewed: vital signs, nurses notes, EMS record, old medical records, lab test result(s), cardiac enzymes, CBC, electrolytes, EKG, radiologic studies, plain films. Data interpreted: Pulse oximetry: on 100% oxygen by non-rebreather, is 92 %. Interpretation: acceptable. Counseling: I had a detailed discussion with the patient and/or guardian regarding: the historical points, exam findings, and any diagnostic results supporting the discharge/admit diagnosis, lab results, radiology results, the need for further work-up and treatment in the hospital. Response to treatment: the patient's symptoms have markedly improved after treatment. 20:57 Patient medically screened. [facility] 07/29 19:41 Order name: BMP 07/29 19:41 Order name: Blood Culture Adult (2) 07/29 19:41 Order name: C-Reactive Protein 07/29 19:41 Order name: CBC with Diff; Complete Time: 20:51 07/29 19:41 Order name: D-Dimer; Complete Time: 20:45 07/29 19:41 Order name: Ferritin; Complete Time: 20:45 07/29 19:41 Order name: LFT's; Complete Time: 20:45 07/29 19:41 Order name: Lactate; Complete Time: 20:45 07/29 19:41 Order name: PT-INR; Complete Time: 20:45 07/29 19:41 Order name: Procalcitonin; Complete Time: 21:29 07/29 19:41 Order name: Ptt, Activated; Complete Time: 20:45 07/29 19:41 Order name: Troponin (emerg Dept Use Only); Complete Time: 20:45 07/29 19:41 Order name: CXR XRAY; Complete Time: 21:29 07/29 19:41 Order name: Basic Metabolic Panel; Complete Time: 20:45 [facility] 07/29 19:41 Order name: Blood Culture [facility] 07/29 19:41 Order name: C-Reactive Protein; Complete Time: 20:45 [facility] 07/29 19:44 Order name: PROBNP; Complete Time: 20:45 [facility] 07/29 20:46 Order name: Ketone, Serum; Complete Time: 21:29 [facility] 07/29 20:46 Order name: ABG [facility] 07/29 20:47 Order name: ABG Arterial Blood Gas; Complete Time: 21:29 [facility] 07/29 21:02 Order name: COVID-19/FLU A+B; Complete Time: 21:29 [facility] 07/29 19:41 Order name: EKG; Complete Time: 19:42 07/29 19:41 Order name: Cardiac monitoring; Complete Time: 19:44 07/29 19:41 Order name: Droplet/Contact Precautions; Complete Time: 20:13 07/29 19:41 Order name: EKG - Nurse/Tech; Complete Time: 19:44 07/29 19:41 Order name: IV Start; Complete Time: 20:13 07/29 19:41 Order name: Labs collected and sent; Complete Time: 20:13 07/29 19:41 Order name: O2 Per Protocol; Complete Time: 19:45 07/29 19:41 Order name: O2 Sat Monitoring; Complete Time: 19:45 07/29 19:41 Order name: Urine Dipstick-Ancillary (obtain specimen) 07/29 20:56 Order name: CONS Physician Consult EDNC Administered Medications: 19:50 Drug: Albuterol HFA Inhaler 2 puffs Route: Inhalation; Infused Over: 2 mins; wg 19:58 Follow up: Response: No adverse reaction wg 20:00 Follow up: Response: No adverse reaction wg 20:00 Follow up: Response: No adverse reaction wg 19:58 Drug: SOLU-Medrol (methylPrednisoLONE) 80 mg Route: IVP; Infused Over: 2 mins; Site: wg right antecubital; 21:39 Follow up: Response: No adverse reaction ea 20:00 Drug: Ativan (LORazepam) 1 mg Route: IVP; Site: right forearm; ea 20:13 Drug: Ativan (LORazepam) 1 mg Route: IVP; Site: right forearm; ea 20:53 Drug: Ringers - Lactated Ringers Solution 1000 ml Route: IV; Rate: bolus; Site: left cw2 hand; 21:38 Drug: Rocephin (cefTRIAXone) 1 grams Route: IV; Rate: per protocol; Site: right ea antecubital; 21:39 Drug: Zithromax (azithromycin) 500 mg Route: IVPB; Infused Over: 1 hrs; Site: right ea antecubital; Disposition Summary: 07/29/21 20:57 Hospitalization Ordered Hospitalization Status: Inpatient Admission [facility] Provider: Mumtaz Rivera [facility] Location: Intensive Care Unit [facility] Condition: Fair [facility] Problem: an ongoing problem [facility] Symptoms: have improved [facility] Bed/Room Type: Standard [facility] Room Assignment: 5-(07/29/21 21:47) Diagnosis - COVID Pneumonia, Hypoxia, Acute on Chronic Renal Failure [facility] Forms: - Medication Reconciliation Form [facility] - SBAR form [facility] Signatures: Dispatcher [employer] EDMS Kendra Urban RN RN Emanuel Werner PA PA [id number] Mala Gutierrez RN RN Jocelyn Boston RN RN ea Holmes, Maurice, MD MD [facility] Juan Givens RN wg Williams, Christopher 2 Corrections: (The following items were deleted from the chart) 20:10 19:41 Influenza Screen (A \T\ B)+BA.LAB.BRZ ordered. EDMS EDMS 20:11 19:41 CORONAVIRUS+MR.LAB.BRZ ordered. EDMS EDMS 21:47 20:57 [facility] cg
--- NOTE | 2021-07-29 20:59 | ER ---
Nurse's Notes [facility] Name: Jose M Jovel Age: 60 yrs Sex: Female : 1960 Arrival Date: 07/29/2021 Time: 19:31 Bed 5 Private MD: Diagnosis: COVID Pneumonia, Hypoxia, Acute on Chronic Renal Failure Presentation: 07/29 19:48 Chief complaint: EMS states: Pt found sob by family, with confusion, EMS reported RA ea sats at 87%. Coronavirus screen: Client presents with at least one sign or symptom that may indicate coronavirus-19. Ebola Screen: No symptoms or risks identified at this time. Initial Sepsis Screen: Does the patient meet any 2 criteria? No. Patient's initial sepsis screen is negative. Does the patient have a suspected source of infection? No. Patient's initial sepsis screen is negative. Risk Assessment: Do you want to hurt yourself or someone else? Patient reports no desire to harm self or others. Onset of symptoms was July 29, 2021. 19:48 Acuity: GUSTABO 3 ea 19:48 Method Of Arrival: EMS: [facility] ea Historical: - Allergies: 20:16 No Known Allergies; ea - PMHx: 20:16 Anxiety; Chronic pain; Diabetes - NIDDM; Hypertension; TIA; ea - Immunization history:: Adult Immunizations unknown. - Social history:: Smoking status: unknown. Screenin:48 Abuse screen: Denies threats or abuse. Nutritional screening: No deficits noted. ea Tuberculosis screening: No symptoms or risk factors identified. Fall Risk None identified. Assessment: 20:14 General: Appears distressed, Behavior is restless. Pain: Denies pain. Neuro: Level of ea Consciousness is awake, alert, obeys commands, Oriented to person, place, time. Respiratory: Airway is patent Respiratory effort is labored, Respiratory pattern is tachypnea. Derm: Skin is pale, Skin temperature is warm. 22:14 Reassessment: pt extremely agitated, restless, trying to take off mask, crying, this JOHN bb at bedside for reassurance with no effect. 22:18 Reassessment: RT at bedside for transfer of pt to Covid ICU room 5 accompanied by Jocelyn gauthier RN, Josh RN, and RT. Vital Signs: 19:48 BP 124 / 88; Pulse 127; Resp 38; Temp 98.4; Pulse Ox 77% ; Weight 95.25 kg; Height 5 ea ft. 2 in. (157.48 cm); 19:48 Body Mass Index 38.41 (95.25 kg, 157.48 cm) ea ED Course: 19:31 Patient arrived in ED. cf2 19:36 Kael Ferro MD is Attending Physician. [facility] 19:48 Jocelyn Boston, JOHN is Primary Nurse. ea 19:48 Arm band placed on right wrist. Patient placed in an exam room, on a stretcher, on ea pulse oximetry. 19:48 Inserted saline lock: 20 gauge in right forearm, using aseptic technique. Blood ea collected. 19:51 Triage completed. ea 19:53 CXR XRAY In Process Unspecified. EDMS 20:14 Patient has correct armband on for positive identification. Bed in low position. Call ea light in reach. 20:38 Notified ED physician of a critical lab result(s). Melquiades NdiayeDimer [id number]. wg 20:43 Inserted saline lock: 20 gauge in left hand, using aseptic technique. ea 20:56 Mumtaz Rivera MD is Hospitalizing Provider. [facility] 21:05 ABG Sent. 21:05 BMP Sent. wg 21:05 Blood Culture Adult (2) Sent. wg 21:05 C-Reactive Protein Sent. wg 22:04 No provider procedures requiring assistance completed. Patient admitted, IV remains in bb place. Administered Medications: 19:50 Drug: Albuterol HFA Inhaler 2 puffs Route: Inhalation; Infused Over: 2 mins; 19:58 Follow up: Response: No adverse reaction 20:00 Follow up: Response: No adverse reaction 20:00 Follow up: Response: No adverse reaction 19:58 Drug: SOLU-Medrol (methylPrednisoLONE) 80 mg Route: IVP; Infused Over: 2 mins; Site: wg right antecubital; 21:39 Follow up: Response: No adverse reaction ea 20:00 Drug: Ativan (LORazepam) 1 mg Route: IVP; Site: right forearm; ea 20:13 Drug: Ativan (LORazepam) 1 mg Route: IVP; Site: right forearm; ea 20:53 Drug: Ringers - Lactated Ringers Solution 1000 ml Route: IV; Rate: bolus; Site: left cw2 hand; 21:38 Drug: Rocephin (cefTRIAXone) 1 grams Route: IV; Rate: per protocol; Site: right ea antecubital; 21:39 Drug: Zithromax (azithromycin) 500 mg Route: IVPB; Infused Over: 1 hrs; Site: right ea antecubital; Outcome: 20:57 Decision to Hospitalize by Provider. reyes 22:05 Admitted to ICU accompanied by nurse, room 5, with chart. abrahan 22:05 Condition: stable 22:05 Instructed on the need for admit, Demonstrated understanding of instructions. 22:19 Patient left the ED. bb Signatures: Dispatcher [employer] EDKendra Wong RN RN bb Antunez, Elena, RN RN ea Frazier, Celesta 2 Kael Ferro MD MD [facility] Juan Givens RN wg Williams, Christopher 2
[2021-07-29 21:02] LABS: SARS-COV-2 RT PCR POSITIVE (NEGATIVE)
[2021-07-29] MEDS ORDERED: Ringers Lactate 1,000 ML IV ONE (21:16)
[2021-07-29 21:18] LABS: Arterial Blood Carboxyhemoglob 0.6 % (0-1.5); Blood Gas Oxyhemoglobin 96.3 % (94-97); Blood O2 Saturation 97.8 % (92-98.5)
--- NOTE | 2021-07-29 21:22 | RAD REPORT ---
EXAM DESCRIPTION: RAD - Chest Single View - 07/29/2021 7:53 pm CLINICAL HISTORY: DYSPNEA COMPARISON: December 2004 TECHNIQUE: AP portable chest image was obtained 07/29/2021 7:53 pm . FINDINGS: Lung volumes are low. Interstitial and alveolar opacities are present in both lung naranjo. Left apex is relatively spared. No cardiomegaly seen. Pulmonary vasculature within normal limits. Doreen ng parenchymal pattern is nonspecific. In the current clinical environment COVID-19 pneumonia would b e a primary consideration and can be correlated with testing results. Inflow ones and organizing pneu monia are possibilities. A noncardiac pulmonary edema can have this appearance. No measurable pleural effusion and no pneumothorax. No acute bony abnormality seen. No acute aortic findings suspected. IMPRESSION: Interstitial and alveolar opacities in both lung naranjo without cardiomegaly or vascular engorgement. COVID-19 pneumonia would be a primary consideration the current clinical environment. Other non COVID infectious etiologies are possible as well.
[2021-07-29] MEDS ORDERED: NA CHLORIDE 0.9% 250 ML ONE (21:39)
[2021-07-29] MEDS ORDERED: AZITHROMYCIN 500 MG INJ IVPB ONE (21:39)
[2021-07-29] MEDS ORDERED: CEFTRIAXONE/SWI 1gm 1 GM/10 ML SYR ONE (21:39)
[2021-07-29] MEDS ORDERED: FAMOTIDINE 20 MG/2 ML VIAL IV ONE (23:00)
--- NOTE | 2021-07-29 23:04 | P.HP ---
Certification for Inpatient Patient admitted to: Inpatient With expected LOS: >2 Midnights Practitioner: I am a practitioner with admitting privileges, knowledge of patient current condition, hospital course, and medical plan of care. Services: Services provided to patient in accordance with Admission requirements found in Title 42 Section 412.3 of the Code of Federal Regulations Patient History Date of Service: 07/29/21 Reason for admission: Covid Pneumonia, Hypoxia, ARF History of Present Illness: This is a 60-year-old female patient with a history of anxiety, chronic pain, diabetes, hypertension, TIA that presented to the emergency room with a approximately 1 week history of worsening shortness of breath. Patient unvaccinated per family. Noticed that she started having extreme shortness of breath tonight in which EMS was called. Patient was 77% on room air upon arrival to the emergency room. Patient was worked up in the emergency room and was ultimately put on BiPAP and given a couple rounds of Ativan for extreme anxiety. Patient now with improvement. It was found that patient was Covid positive. Patient had a sodium of 133, potassium 4.5, chloride 105, bicarb of 16, BUN 63, creatinine 2.10, glucose 305. Patient's white cell count was 18.5, hemoglobin 16, hematocrit 47.4, platelet 458. D-dimer 1000 091, ferritin 1250, lactate 2.2, CRP 132. Medicine was consulted at that time for further evaluation and admission. Allergies No Known Allergies Allergy (Verified 01/03/20 00:18) Home medications list reviewed: Yes Home Medications: Bupropion *Xl* [Wellbutrin XL*] 300 mg PO DAILY 01/03/20 Gabapentin 600 mg PO TID 01/03/20 Nortriptyline HCl [Pamelor] 75 mg PO BEDTIME 01/03/20 Simvastatin 20 mg PO BEDTIME 01/03/20 Tramadol HCl [Ultram] 50 mg PO TID 01/03/20 clonazePAM [Clonazepam] 0.5 mg PO TID 01/03/20 Doxepin HCl 100 mg PO BEDTIME PRN PRN 07/03/20 Fluticasone [Flonase 50MCG Nasal Warden*] 1 sprays NS BIDP PRN 07/03/20 Lisinopril [Zestril] 20 mg PO DAILY 07/03/20 Sertraline [Zoloft*] 100 mg PO DAILY 07/03/20 glipiZIDE [Glipizide] 10 mg PO BIDWM 07/03/20 Ciprofloxacin HCl 500 mg PO BID 5 Days #10 tablet 07/05/20 Ondansetron [Zofran] 4 mg PO Q6H PRN #15 tab 07/05/20 metroNIDAZOLE [Flagyl] 500 mg PO Q8H 5 Days #24 tablet 07/05/20 - Past Medical/Surgical History Diabetic: No -: HTN -: High cholesterol -: Hernia -: Chronic back pain -: DJD -: Depression -: GERD -: Diabetes mellitus type 2 -: Arthritis -: Deteriorating disc disease -: Arthritis -: Cataracts aneudy eyes -: sx to remove cyst on tail of pancrease -: Hernia Repair -: Edith -: lap Band and removal -: Splenectomy Psychosocial/ Personal History: patient lives with family - Family History Mother -: Heart disease, Diabetes, Stroke - Social History Smoking Status: Never smoker Smoking therapy provided: No Alcohol use: No CD- Drugs: No Caffeine use: Yes Place of Residence: Home Review of Systems General: As per HPI Eyes: Unremarkable ENT: Unremarkable Respiratory: Shortness of Breath, SOB with Excertion Cardiovascular: Unremarkable Gastrointestinal: Unremarkable Musculoskeletal: Unremarkable Integumentary: Unremarkable Neurological: Unremarkable Lymphatics: Unremarkable Physical Examination - Vital Signs Temperature: 98.4 F Blood Pressure: 105/67 Pulse: 118 Respirations: 18 Pulse Ox (%): 90 (BiPAP) - Physical Exam General: Alert, Oriented x3, Moderate distress, Other (Very anxious) HEENT: Normocephalic, PERRLA, Mucous membr. moist/pink Neck: Supple, 2+ carotid pulse no bruit, JVD not distended Respiratory: Clear to auscultation bilaterally, Other (Tachypneic) Cardiovascular: No edema, Normal pulses, Normal S1 S2, Other (Tachycardic) Capillary refill: <2 Seconds Gastrointestinal: Normal bowel sounds, Soft and benign, Non-distended, No ascites, No tenderness, No masses, No rebound, No guarding Musculoskeletal: No clubbing, No swelling, No contractures, No erythema, No tenderness, No warmth Integumentary: No rashes, No breakdown, No significant lesion, No tenderness/swelling, No erythema, No warmth, No cyanosis Neurological: Normal speech, Normal strength at 5/5 x4 extr, Normal tone, Sensation intact, Cranial nerves 3-12 intact, Normal affect Lymphatics: No axilla or inguinal lymphadenopathy - Studies Laboratory Data (last 24 hrs) 07/29/21 20:30: WBC 18.50 H, Hgb 16.0 H, Hct 47.4 H, Plt Count 458 H 07/29/21 19:41: PT 14.6 H, INR 1.27, APTT 27.0 07/29/21 19:41: Sodium 133 L, Potassium 4.5, BUN 63 H, Creatinine 2.10 H, Glucose 305 H, Total Bilirubin 0.5, AST 64 H, ALT 43, Alkaline Phosphatase 103 Assessment and Plan - Problems (Diagnosis) (1) Pneumonia due to COVID-19 virus Current Visit: Yes Status: Acute (2) Acute respiratory failure with hypoxia Current Visit: Yes Status: Acute (3) Anxiety Current Visit: Yes Status: Acute (4) Acute renal failure Current Visit: Yes Status: Acute Qualifiers: Acute renal failure type: unspecified Qualified Code(s): N17.9 - Acute kidney failure, unspecified (5) DM type 2 (diabetes mellitus, type 2) Current Visit: Yes Status: Chronic Qualifiers: Diabetes mellitus mcfp insulin use: with intermediate teacher use Diabetes mellitus complication status: with hyperglycemia Qualified Code(s): E11.65 - Type 2 diabetes mellitus with hyperglycemia; 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 Patient admitted to the intensive care unit for further monitoring for acute respiratory hypoxia secondary to Covid pneumonia. 2. Vital signs per protocol 3. Pulmonology has been consulted for further evaluation for Covid 4. Nephrology has been consulted for acute renal failure 5. Patient will be started on steroids along with vitamin regimen for Covid. Will further assess with pulmonology if patient is candidate for remdesivir 6. Patient is on moderate sliding scale for her glucose 7. We will continue light hydration for dehydration 8. DVT prophylaxis. Patient not a candidate for CT iodine contrasted study due to renal function. We will get a V/Q in the morning 9. Labs daily and will trend her D-dimer, ferritin, lactate, CRP 10. Patient will remain on BiPAP at this time until we can control her anxiety and oxygen level. Will be downgraded as she improves. Discharge Plan: Home Plan to discharge in: Greater than 2 days - Advance Directives Does patient have a Living Will: No Does patient have a Durable POA for Healthcare: No - Code Status/Comfort Care Code Status Assessed: Yes Code Status: Full Code Critical Care: Yes (Time assessing patient's labs, time speaking with family.) Time Spent Managing Pts Care (In Minutes): 80
[2021-07-29] MEDS: APIXABAN 5 MG TABLET PO SCH (23:25)
[2021-07-29] MEDS ORDERED: D50W 25 GM/50 ML SYRINGE IV PRN (23:25)
[2021-07-29] MEDS: METHYLPREDNISOLONE 40 MG INJ IV SCH (23:25)
[2021-07-29] MEDS ORDERED: HYDRALAZINE HCL 20 MG/ML VIAL IV PRN (23:25)
[2021-07-29] MEDS ORDERED: FAMOTIDINE 20 MG/2 ML VIAL IV SCH (23:25)
[2021-07-29] MEDS ORDERED: GLUCAGON 1 MG/VIAL IM PRN (23:25)
[2021-07-30] MEDS ORDERED: FAMOTIDINE 20 MG/2 ML VIAL IV ONE (01:00)
[2021-07-30] MEDS: INSULIN -REGULAR HUMAN 50 UNIT/0.5 ML ML SQ SCH ×5 (01:36→20:45)
[2021-07-30] MEDS: NA CHLORIDE 0.9% 1,000 ML IV SCH ×2 (01:44→11:53)
[2021-07-30] MEDS: LORazepam 2 MG/ML VIAL IV SCH ×7 (04:00→23:29)
[2021-07-30 05:20] VITALS: BMI 33.0
[2021-07-30 06:11] LABS: Absolute Lymphocytes (CBC) 3.3 K/uL (0.7-4.9); Basophils % 0.5 % (0-1.3); Hematocrit 43.8 % (36.0-45.0); Lymphocytes % 21.1 % (15.3-44.8); MPV 10.2 fL (7.6-11.3); RBC Red Blood Cell Count 4.92 M/uL (3.86-4.86)
[2021-07-30 06:54] LABS: Ferritin 1160.2 ng/mL (8-388); Potassium 4.3 mmol/L (3.5-5.1)
[2021-07-30] MEDS: ZINC SULFATE 220 MG CAP PO SCH (08:21)
[2021-07-30] MEDS: APIXABAN 5 MG TABLET PO SCH ×2 (08:21→20:44)
[2021-07-30] MEDS: VITAMIN D 5,000 UNIT CAP PO SCH (08:21)
[2021-07-30] MEDS: ASCORBIC ACID 500 MG TABLET PO SCH ×3 (08:22→20:44)
[2021-07-30] MEDS: ACETAMINOPHEN 325 MG TABLET PO PRN ×2 (08:22→21:28)
[2021-07-30] MEDS: METHYLPREDNISOLONE 40 MG INJ IV SCH ×2 (08:22→20:43)
[2021-07-30 10:11] LABS: Platelet Estimate ADEQ; White Blood Cell Scan OK (OK)
[2021-07-30 10:12] LABS: Blood Morphology Comment NOT SEEN (NOT SEEN); Platelets, Giant PRESENT
[2021-07-30] MEDS: GABAPENTIN 300 MG CAP PO SCH ×2 (13:28→20:44)
--- NOTE | 2021-07-30 13:31 | PN ---
Subjective: Currently, patient is lying in bed. She looks in mild distress due to shortness of mo th. She was on BiPAP and she is switched to high-flow 100% nasal cannula. She is irritated from the noise of her BiPAP. She continued to be short of breath. She has no fever, no chills. No chest pa in. She had a bowel movement earlier. She is still n.p.o. Objective: Vital Signs: Currently, blood pressure is 160/81, respiratory rate 32, heart rate 133, t emperature 97, saturating 92% on 100% FiO2 40 L. General: She is alert and oriented x3. Does look in mild distress. HEENT: Atraumatic, normocephalic. PERRLA. Oral mucosa is moist. Neck: Supple. No JVD. No bruits. Chest: Clear to auscultation bilaterally. Heart: Regular rate and rhythm. Tachy. No gallop or murmur. Abdomen: Soft, nontender. No masses. No hepatosplenomegaly. Positive bowel sounds. Extremities: No clubbing or cyanosis. No edema. No calf tenderness. Neurologic: Grossly intact. Cranial nerve exam 2 through 12 intact. Normal sensation. Normal refl exes. Normal muscle strength. Laboratory Data: Showed CBC with white blood cell 15.6, hemoglobin 14.7, platelets 442. CMP with so dium 139, potassium 4.3, chloride 109, BUN of 16, creatinine 1.7, GFR 31, glucose 274. Hemoglobin A1 c 7.1. Ferritin 1160. C-reactive protein 124. Assessment And Plan: 1.Acute respiratory failure secondary to COVID pneumonia. Patient currently on high-flow nasal abdulaziz dudley. Ferritin and CRP trending down today so far culture negative. Continue current plan care with a multivitamin, vitamin C, zinc, and vitamin D. Patient is currently on high dose of Sinemet 80 twic e a day. We will try to taper O2 down as soon as we can. 2.Acute renal failure. Labs today showed creatinine down from 2.1 to 1.7. Continue hydration gentl y. 3.Nephrology consult requested and still pending. 4.Type 2 diabetes mellitus. Hemoglobin A1c 7.1. Relatively controlled. Continue insulin sliding s randy. Resume home medications with glipizide and continue insulin sliding scale. 5.Hypertension, well controlled. We will resume her lisinopril. 6.Deep vein thrombosis prophylaxis. She is on Eliquis 5 mg twice a day. 7.V/Q scan apparently ordered, but is not done. We will follow up on that. ZIYAD Voice ID: [id number] Report ID: [id number]
[2021-07-30] MEDS: glipiZIDE 5 MG TAB PO SCH (16:18)
--- NOTE | 2021-07-30 17:31 | P.CNS ---
Date of Consult: 07/30/21 Reason for Consult: BUCK Chief Complaint: Covid Pneumonia, Hypoxia, ARF History of Present Illness: Pt is unable to provide HX, HX obtained from chart A 60-year-old female patient with a history of anxiety, chronic pain, diabetes, hypertension, TIA Pt presented with SOB and Hypoxia labs with sodium of 133, potassium 4.5, chloride 105, bicarb of 16, BUN 63, creatinine 2.10 old chart reviewed that pt had 2 Buck in 2019 peak cr 1.9, and improves to 1.1 , pt was on lisinopril Review of Systems: unable to provide Physical exam general: lethargic on biPAP Neck; Supple, No elevated JVD chest decreased air entry hear: tachycardia normal S1,2 no murmur or rub Chest: CTAB, no rales or wheezes Abdomen: Soft , Nt Extremities No edema or ulcer BUCK likely due to dehydration Cont IVF for now will dc lisinopril avoid NSAID and contast enal dose meds will oprder US , UA and UPC HTN will hold lisniopril DM cont current meds COVID 19 with acute respiratory failure Cont BiPAP support and steroids total time spent 65 min Allergies No Known Allergies Allergy (Verified 01/03/20 00:18) Home Medications: Bupropion *Xl* [Wellbutrin XL*] 300 mg PO DAILY 01/03/20 Gabapentin 600 mg PO TID 01/03/20 Nortriptyline HCl [Pamelor] 75 mg PO BEDTIME 01/03/20 Simvastatin 20 mg PO BEDTIME 01/03/20 Tramadol HCl [Ultram] 50 mg PO TID 01/03/20 clonazePAM [Clonazepam] 0.5 mg PO TID 01/03/20 Doxepin HCl 100 mg PO BEDTIME PRN PRN 07/03/20 Fluticasone [Flonase 50MCG Nasal [place]*] 1 sprays NS BIDP PRN 07/03/20 Lisinopril [Zestril] 20 mg PO DAILY 07/03/20 Sertraline [Zoloft*] 100 mg PO DAILY 07/03/20 glipiZIDE [Glipizide] 10 mg PO BIDWM 07/03/20 Ciprofloxacin HCl 500 mg PO BID 5 Days #10 tablet 07/05/20 Ondansetron [Zofran] 4 mg PO Q6H PRN #15 tab 07/05/20 metroNIDAZOLE [Flagyl] 500 mg PO Q8H 5 Days #24 tablet 07/05/20 - Past Medical/Surgical History Diabetic: No -: HTN -: High cholesterol -: Hernia -: Chronic back pain -: DJD -: Depression -: GERD -: Diabetes mellitus type 2 -: Arthritis -: Deteriorating disc disease -: Arthritis -: Cataracts aneudy eyes -: sx to remove cyst on tail of pancrease -: Hernia Repair -: Edith -: lap Band and removal -: Splenectomy Psychosocial/ Personal History: patient lives with family - Family History Mother Medical History: Heart disease, Diabetes, Stroke - Social History Smoking Status: Unknown if ever smoked Alcohol use: No CD- Drugs: No Caffeine use: Yes Place of Residence: Home Physical Examination Temp Pulse Resp BP Pulse Ox 97.1 F 94 H 25 H 106/69 93 07/30/21 16:00 07/30/21 16:00 07/30/21 16:00 07/30/21 16:00 07/30/21 16:00 Laboratory Data (last 24 hrs) 07/29/21 20:30: WBC 18.50 H, Hgb 16.0 H, Hct 47.4 H, Plt Count 458 H 07/29/21 19:41: PT 14.6 H, INR 1.27, APTT 27.0 07/29/21 19:41: Sodium 133 L, Potassium 4.5, BUN 63 H, Creatinine 2.10 H, Glucose 305 H, Total Bilirubin 0.5, AST 64 H, ALT 43, Alkaline Phosphatase 103
--- NOTE | 2021-07-30 18:42 | P.CNS ---
Date of Consult: 07/30/21 Reason for Consult: COVID penumonia Chief Complaint: Covid Pneumonia, Hypoxia, ARF History of Present Illness: AGe 60 metabolic synd AW COVID pneumonia, onBIPAP and hypoxic Allergies No Known Allergies Allergy (Verified 01/03/20 00:18) Home Medications: Bupropion *Xl* [Wellbutrin XL*] 300 mg PO DAILY 01/03/20 Gabapentin 600 mg PO TID 01/03/20 Nortriptyline HCl [Pamelor] 75 mg PO BEDTIME 01/03/20 Simvastatin 20 mg PO BEDTIME 01/03/20 Tramadol HCl [Ultram] 50 mg PO TID 01/03/20 clonazePAM [Clonazepam] 0.5 mg PO TID 01/03/20 Doxepin HCl 100 mg PO BEDTIME PRN PRN 07/03/20 Fluticasone [Flonase 50MCG Nasal [place]*] 1 sprays NS BIDP PRN 07/03/20 Lisinopril [Zestril] 20 mg PO DAILY 07/03/20 Sertraline [Zoloft*] 100 mg PO DAILY 07/03/20 glipiZIDE [Glipizide] 10 mg PO BIDWM 07/03/20 Ciprofloxacin HCl 500 mg PO BID 5 Days #10 tablet 07/05/20 Ondansetron [Zofran] 4 mg PO Q6H PRN #15 tab 07/05/20 metroNIDAZOLE [Flagyl] 500 mg PO Q8H 5 Days #24 tablet 07/05/20 - Past Medical/Surgical History Diabetic: No -: HTN -: High cholesterol -: Hernia -: Chronic back pain -: DJD -: Depression -: GERD -: Diabetes mellitus type 2 -: Arthritis -: Deteriorating disc disease -: Arthritis -: Cataracts aneudy eyes -: sx to remove cyst on tail of pancrease -: Hernia Repair -: Edith -: lap Band and removal -: Splenectomy Psychosocial/ Personal History: patient lives with family - Family History Mother Medical History: Heart disease, Diabetes, Stroke - Social History Smoking Status: Unknown if ever smoked Alcohol use: No CD- Drugs: No Caffeine use: Yes Place of Residence: Home Review of Systems is unable to be obtained Physical Examination Temp Pulse Resp BP Pulse Ox 97.1 F 94 H 23 H 95/68 91 07/30/21 16:00 07/30/21 18:00 07/30/21 18:00 07/30/21 18:00 07/30/21 18:00 General: Delirious Laboratory Data (last 24 hrs) 07/29/21 20:30: WBC 18.50 H, Hgb 16.0 H, Hct 47.4 H, Plt Count 458 H 07/29/21 19:41: PT 14.6 H, INR 1.27, APTT 27.0 07/29/21 19:41: Sodium 133 L, Potassium 4.5, BUN 63 H, Creatinine 2.10 H, Glucose 305 H, Total Bilirubin 0.5, AST 64 H, ALT 43, Alkaline Phosphatase 103 - Problems (1) Pneumonia due to COVID-19 virus Current Visit: Yes Status: Acute Plan: AGe 60 AW COVI penumonia/ hypoxic on BIPAP Fio2 80%, Renal fialure .ABG satisfac/ DC VQ scan CW present TX/ BP Low/ Barctinib
--- NOTE | 2021-07-30 20:42 | RAD REPORT ---
EXAM DESCRIPTION: US - Renal Ultrasound-Complete - 07/30/2021 8:18 pm CLINICAL HISTORY: Acute renal insufficiency COMPARISON: June 2021 CT FINDINGS: The right kidney measures 12 cm with a normal echotexture. No hydronephrosis Limited evaluation of the left kidney secondary to difficulty with patient positioning. Malrotation o f the left kidney is present. Hydronephrosis is not visualized. Left kidney measures approximately 7 centimeters. Echotexture appears normal No gross abnormality of the bladder IMPRESSION: No significant abnormality is displayed
[2021-07-30] MEDS: ATORVASTATIN 10 MG TAB PO SCH (20:45)
[2021-07-30] MEDS ORDERED: MELATONIN 5 MG TABLET PO SCH (21:00)
[2021-07-30] MEDS ORDERED: NA CHLORIDE 0.9% 1,000 ML ONE (21:17)
[2021-07-30] MEDS ORDERED: MELATONIN 5 MG TABLET PO PRN (23:49)
[2021-07-30] MEDS: HALOPERIDOL LACT 5 MG/ML INJ IV PRN (23:57)
[2021-07-31] MEDS ORDERED: HALOPERIDOL LACT 5 MG/ML INJ ONE (00:20)
[2021-07-31] MEDS: NA CHLORIDE 0.9% 1,000 ML IV SCH (02:05)
[2021-07-31 05:04] LABS: Urine Appearance CLEAR (Clear); Urine Bilirubin NEGATIVE (Negative); Urine Blood NEGATIVE (Negative); Urine Color YELLOW (Yellow); Urine Glucose 1+ (Negative); Urine Protein TRACE (Negative); Urine Urobilinogen 0.2 mg/dL (0.2-1.0)
[2021-07-31 05:05] LABS: Absolute Lymphocytes (CBC) 1.4 K/uL (0.7-4.9); Basophils % 0.4 % (0-1.3); Hematocrit 42.3 % (36.0-45.0); Lymphocytes % 11.1 % (15.3-44.8); MPV 9.9 fL (7.6-11.3); RBC Red Blood Cell Count 4.76 M/uL (3.86-4.86)
[2021-07-31 05:27] LABS: Potassium 4.8 mmol/L (3.5-5.1)
[2021-07-31] MEDS: LORazepam 2 MG/ML VIAL IV SCH ×5 (05:29→18:32)
[2021-07-31 05:32] LABS: Urine Microscopic Reflex ORDER UMIC
[2021-07-31 06:05] LABS: Urine Bacteria <20 /HPF (<20); Urine RBC <5 /HPF (NONE SEEN)
[2021-07-31 06:06] LABS: Urine Mucus 1+ /HPF (NONE SEEN)
[2021-07-31] MEDS: METHYLPREDNISOLONE 40 MG INJ IV SCH ×2 (08:14→21:00)
--- NOTE | 2021-07-31 08:35 | P.PN ---
Subjective Date of Service: 07/31/21 Chief Complaint: Covid Pneumonia, Hypoxia, ARF Condition stable still on high levels of BiPAP alert Review of Systems General: Weakness Respiratory: Shortness of Breath Physical Examination - Vital Signs Temperature: 97.2 F Blood Pressure: 106/68 Pulse: 104 Respirations: 25 Pulse Ox (%): 89 - Physical Exam General: Alert, Cooperative Assessment & Plan - Problems (Diagnosis) (1) Pneumonia due to COVID-19 virus Current Visit: Yes Status: Acute Plan: Respiratory failure continue with high doses of steroids and Barcitinib labs reviewed white count is declining pressure on the lower side DC IV fluids Dobbhoff
[2021-07-31] MEDS ORDERED: lisinopriL 20 MG TAB PO SCH (09:00)
[2021-07-31] MEDS: BARICITINIB 2 MG TABLET PO SCH (09:00)
[2021-07-31] MEDS: INSULIN -REGULAR HUMAN 50 UNIT/0.5 ML ML SQ SCH ×4 (09:16→21:00)
[2021-07-31] MEDS: HALOPERIDOL LACT 5 MG/ML INJ IV PRN (09:30)
[2021-07-31] MEDS: GABAPENTIN 300 MG CAP PO SCH ×3 (10:03→19:59)
[2021-07-31] MEDS: APIXABAN 5 MG TABLET PO SCH ×2 (10:03→19:59)
[2021-07-31] MEDS: ASCORBIC ACID 500 MG TABLET PO SCH ×3 (10:04→20:00)
[2021-07-31] MEDS: VITAMIN D 5,000 UNIT CAP PO SCH (10:04)
[2021-07-31] MEDS: ZINC SULFATE 220 MG CAP PO SCH (10:04)
[2021-07-31] MEDS: glipiZIDE 5 MG TAB PO SCH ×2 (10:04→16:02)
[2021-07-31] MEDS: SERTRALINE HCL 100 MG TAB PO SCH (10:04)
[2021-07-31] MEDS: BUPROPION HCL XL 150 MG TAB PO SCH (10:05)
[2021-07-31] MEDS ORDERED: WATER FOR INJ,STERILE 10 ML IM PRN (10:39)
[2021-07-31] MEDS ORDERED: ZIPRASIDONE MESYLA 20 MG/VIAL IM ONE (10:39)
[2021-07-31] MEDS ORDERED: NA CHLORIDE 0.9% 0 ML ONE (12:33)
[2021-07-31] MEDS ORDERED: propofoL 0 MG/0 ML ML IV ONE (12:34)
[2021-07-31] MEDS ORDERED: HYDROMORPHONE HCL 2 MG/ML inj ONE (12:36)
[2021-07-31 15:00] LABS: Arterial Blood Carboxyhemoglob 0.6 % (0-1.5); Blood Gas Oxyhemoglobin 83.3 % (94-97); Blood O2 Saturation 84.7 % (92-98.5)
[2021-07-31] MEDS: ATORVASTATIN 10 MG TAB PO SCH (19:59)
[2021-07-31] MEDS: HYDROMORPHONE HCL 2 MG/ML inj IV PRN (20:01)
[2021-07-31] MEDS: FAMOTIDINE 20 MG/2 ML VIAL IV SCH (21:00)
[2021-08-01] MEDS: HYDROMORPHONE HCL 2 MG/ML inj IV PRN ×4 (02:53→20:38)
[2021-08-01] MEDS: LORazepam 2 MG/ML VIAL IV SCH ×7 (02:53→20:38)
--- NOTE | 2021-08-01 03:39 | PN ---
Date of Progress Note: 07/31/2021 Chief Complaint: Acute kidney injury, chronic pain with pneumonia, hypoxemic respiratory failure. History: Patient is a 60-year-old woman with history of anxiety, chronic pain, diabetes, hypertension, TIA. She presented to the hospital with severe dyspnea and was found to have hypoxemia, hyponatremia, acute kidney injury, BUN was 63, creatinine 2.1. She had CO2 16, chloride 105. Patient has metabolic acidosis, hyponatremia. Sodium was 133. Previously, she had acute kidney injury episode in 2019, when creatinine was up to 1.9 and improved to 1.1. Prior to this admission, the patient was taking lisinopril. Review of Systems: Unable to obtain due to patient condition Physical Examination: LUNGS: Few rhonchi. Heart: S1 and S2. Abdomen: Soft, obese. Extremities: No edema. Impression: 1. Acute kidney injury secondary to volume depletion. Continue IV fluids. Plan is to hold the AYSHA inhibitor due to acute kidney injury. Avoid nonsteroidal anti-inflammatory medication. Rule out significant proteinuria and check urine prot/creat. 2. Hypertension. Monitor blood pressure, AYSHA inhibitor. 3. Diabetes mellitus. Continue insulin. EB/MODL Voice ID: [id number] Report ID: [id number] NARA
[2021-08-01 05:00] LABS: Absolute Lymphocytes (CBC) 1.2 K/uL (0.7-4.9); Basophils % 0.4 % (0-1.3); Hematocrit 43.3 % (36.0-45.0); Lymphocytes % 4.9 % (15.3-44.8); MPV 9.7 fL (7.6-11.3); RBC Red Blood Cell Count 4.84 M/uL (3.86-4.86)
[2021-08-01 05:21] LABS: Potassium 5.1 mmol/L (3.5-5.1)
--- NOTE | 2021-08-01 07:23 | P.PN ---
Subjective Date of Service: 08/01/21 Chief Complaint: Covid Pneumonia, Hypoxia, ARF Subjective: Other (on oxygen supplementation via BiPAP.) Physical Examination - Vital Signs Temperature: 98.0 F Blood Pressure: 119/77 Pulse: 100 Respirations: 17 Pulse Ox (%): 95 - Physical Exam General: Acute distress HEENT: Atraumatic, Normocephalic Neck: Supple Respiratory: Other (symmetric chest expansion) Cardiovascular: No rubs, No murmurs Gastrointestinal: Soft and benign, No guarding Musculoskeletal: No clubbing Integumentary: No warmth Neurological: Normal tone Urinary: Other (no bladder distention) Assessment And Plan - Plan 1. Acute kidney injury secondary to volume depletion. Improving. D5W gtt as below. Continue IV fluids. Hold ACEI. avoid NSAIDs. Monitor renal panel. 2. Hypernatremia. weight 95.4 kg. Total body water 43 L. Free water deficit 2.5 L plus ongoing losses. Start D5W at 80 cc/hr. 3 Acute respi failure 2/2 covid pna. leukocytosis worsening. Management per primary team. 4. Hypertension. BP ok. Monitor 5. Diabetes mellitus. On insulin.
[2021-08-01] MEDS: glipiZIDE 5 MG TAB PO SCH (08:00)
[2021-08-01] MEDS: METHYLPREDNISOLONE 40 MG INJ IV SCH ×2 (08:36→20:38)
[2021-08-01] MEDS: ZINC SULFATE 220 MG CAP PO SCH (09:00)
[2021-08-01] MEDS: SERTRALINE HCL 100 MG TAB PO SCH (09:00)
[2021-08-01] MEDS: VITAMIN D 5,000 UNIT CAP PO SCH (09:00)
[2021-08-01] MEDS: GABAPENTIN 300 MG CAP PO SCH ×2 (09:00→14:00)
[2021-08-01] MEDS: BUPROPION HCL XL 150 MG TAB PO SCH (09:00)
[2021-08-01] MEDS: APIXABAN 5 MG TABLET PO SCH (09:00)
[2021-08-01] MEDS: ASCORBIC ACID 500 MG TABLET PO SCH ×2 (09:00→14:00)
[2021-08-01] MEDS: BARICITINIB 2 MG TABLET PO SCH (09:00)
[2021-08-01] MEDS: INSULIN -REGULAR HUMAN 50 UNIT/0.5 ML ML SQ SCH ×4 (09:11→20:37)
[2021-08-01 09:16] LABS: Blood Morphology Comment NOT SEEN (NOT SEEN); Platelet Estimate ADEQ
[2021-08-01] MEDS: D5W 1,000 ML IV SCH (15:33)
--- NOTE | 2021-08-01 16:39 | P.PN ---
Subjective Date of Service: 08/01/21 Chief Complaint: Covid Pneumonia, Hypoxia, ARF Not doign well on max BIPAP, agitated Review of Systems is unable to be obtained Physical Examination - Vital Signs Temperature: 97.2 F Blood Pressure: 140/94 Pulse: 112 Respirations: 22 Pulse Ox (%): 87 - Physical Exam General: Unresponsive Assessment & Plan - Problems (Diagnosis) (1) Pneumonia due to COVID-19 virus Current Visit: Yes Status: Acute Plan: Resp failure not doing well/hypernatremia WBC elevated. AW IV fluid start TPN CRP poss Actemera unableto eat or drink
[2021-08-01] MEDS: ENOXAPARIN 80 MG/0.8 ML SQ SCH (17:02)
--- NOTE | 2021-08-01 19:20 | RAD REPORT ---
EXAM DESCRIPTION: RAD - Chest Single View - 08/01/2021 7:02 pm CLINICAL HISTORY: PICC line placement COMPARISON: July 29 FINDINGS: Portable chest was obtained following placement of a right upper extremity PICC line. The catheter tip is in the SVC atrial junction. If desired, the PICC line could be retracted 2 cm for more optimal SVC positioning.
[2021-08-01] MEDS: ATORVASTATIN 10 MG TAB PO SCH (20:37)
[2021-08-02] MEDS: HYDROMORPHONE HCL 2 MG/ML inj IV PRN ×5 (00:46→20:23)
[2021-08-02] MEDS: LORazepam 2 MG/ML VIAL IV SCH ×7 (00:46→23:44)
[2021-08-02] MEDS: HALOPERIDOL LACT 5 MG/ML INJ IV PRN (02:05)
[2021-08-02] MEDS ORDERED: HALOPERIDOL LACT 5 MG/ML INJ ONE (02:29)
[2021-08-02] MEDS: D5W 1,000 ML IV SCH ×3 (04:45→20:15)
[2021-08-02 05:23] LABS: Absolute Lymphocytes (CBC) 1.6 K/uL (0.7-4.9); Basophils % 0.7 % (0-1.3); Hematocrit 43.4 % (36.0-45.0); Lymphocytes % 7.1 % (15.3-44.8); MPV 9.6 fL (7.6-11.3); RBC Red Blood Cell Count 4.82 M/uL (3.86-4.86)
[2021-08-02 05:47] LABS: Albumin 2.6 g/dL (3.4-5.0); Bilirubin Total 0.5 mg/dL (0.2-1.0); Magnesium 1.7 mg/dL (1.8-2.4); Phosphorus 3.6 mg/dL (2.5-4.9); Potassium 5.3 mmol/L (3.5-5.1); Protein, Total 7.2 g/dL (6.4-8.2)
--- NOTE | 2021-08-02 08:14 | P.PN ---
Subjective Date of Service: 07/31/21 Patient appears encephalopathic. She is requiring a large amount of medications the keeper relaxed. She remains on BiPAP support. Family has mentioned that patient's wishes were do not intubate. Will continue to proceed with this. Patient oxygen requirements are substantial. Prognosis remains poor. Review of Systems 10-point ROS is otherwise unremarkable Physical Examination - Vital Signs Temperature: 97.7 F Blood Pressure: 107/62 Pulse: 118 Respirations: 9 Pulse Ox (%): 96 - Physical Exam General: Delirious, Other (Patient appears combative at times.) Respiratory: Diminished, Expiratory wheezes Cardiovascular: Regular rate/rhythm, Normal S1 S2, Systolic murmur Gastrointestinal: Normal bowel sounds, Soft and benign, Non-distended, No tenderness Musculoskeletal: No clubbing, No swelling, No tenderness Neurological: Sensation intact, Cranial nerves 3-12 intact - Studies Medications List Reviewed: Yes Assessment & Plan - Problems (Diagnosis) (1) Acute respiratory failure with hypoxia Current Visit: Yes Status: Acute (2) Pneumonia due to COVID-19 virus Current Visit: Yes Status: Acute (3) DM type 2 (diabetes mellitus, type 2) Current Visit: Yes Status: Chronic Qualifiers: Diabetes mellitus custodial insulin use: with custodial use Diabetes mellitus complication status: with hyperglycemia Qualified Code(s): E11.65 - Type 2 diabetes mellitus with hyperglycemia; Z79.4 - alf (current) use of insulin (4) Hypertension Onset Date: 09/13/14 Current Visit: Yes Status: Chronic Qualifiers: Hypertension type: primary hypertension Qualified Code(s): I10 - Essential (primary) hypertension (5) Depression Current Visit: No Status: Acute (6) Hx-TIA (transient ischemic attack) Current Visit: No Status: Acute (7) Hyperlipidemia Onset Date: 09/13/14 Current Visit: No Status: Acute - Plan 1. Continue with IV steroids 2. Monitor inflammatory markers 3. Repeat chest x-ray 4. O2 per protocol-O2 requirements are substantial 5. Pulmonary consultation 6. Continue with albuterol inhaler therapy; also supportive care 7. Monitor LFTs 8. GI and DVT prophylaxis Discharge Plan: Home Plan to discharge in: Greater than 2 days - Advance Directives Does patient have a Living Will: No Does patient have a Durable POA for Healthcare: No - Code Status/Comfort Care Code Status: Full Code Critical Care: No Time Spent Managing PTS Care (In Minutes): 35
--- NOTE | 2021-08-02 08:17 | P.PN ---
Date of Service: 08/01/21 Subjective No significant changes. Patient requiring Dilaudid every 2 hrs. Prognosis remains poor. Review of Systems 10-point ROS is otherwise unremarkable Physical Examination - Vital Signs Reviewed - Physical Exam General: Delirious, Other (Patient appears combative at times.) Respiratory: Diminished, Expiratory wheezes Cardiovascular: Regular rate/rhythm, Normal S1 S2, Systolic murmur Gastrointestinal: Normal bowel sounds, Soft and benign, Non-distended, No tenderness Musculoskeletal: No clubbing, No swelling, No tenderness Neurological: Sensation intact, Cranial nerves 3-12 intact - Studies Medications List Reviewed: Yes Assessment & Plan - Problems (Diagnosis) (1) Acute respiratory failure with hypoxia Current Visit: Yes Status: Acute (2) Pneumonia/encephalopathy due to COVID-19 virus Current Visit: Yes Status: Acute (3) DM type 2 (diabetes mellitus, type 2) Current Visit: Yes Status: Chronic Qualifiers: Diabetes mellitus jail insulin use: with jail use Diabetes mellitus complication status: with hyperglycemia Qualified Code(s): E11.65 - Type 2 diabetes mellitus with hyperglycemia; Z79.4 - halfway (current) use of insulin (4) Hypertension Onset Date: 09/13/14 Current Visit: Yes Status: Chronic Qualifiers: Hypertension type: primary hypertension Qualified Code(s): I10 - Essential (primary) hypertension (5) Depression Current Visit: No Status: Acute (6) Hx-TIA (transient ischemic attack) Current Visit: No Status: Acute (7) Hyperlipidemia Onset Date: 09/13/14 Current Visit: No Status: Acute - Plan Continue plan of care as mentioned below: 1. Continue with IV steroids-may be contributing 2 to delirium versus encephalopathy. No substantial change in treatment as patient's pulmonary status is very poor. Need to continue large dose of IV steroids. 2. Monitor inflammatory markers 3. Repeat chest x-ray 4. O2 per protocol-O2 requirements are substantial 5. Pulmonary consultation 6. Continue with albuterol inhaler therapy; also supportive care 7. Monitor LFTs 8. GI and DVT prophylaxis
--- NOTE | 2021-08-02 08:17 | P.PN ---
Date of Service: 08/02/21 Subjective Patient is not really improving much. Nursing spoke with family and patient is a [id number]. Continue with strict blood pressure and blood sugar control Review of Systems Unable to obtain Physical Examination - Vital Signs Reviewed - Physical Exam General: Delirious/patient continues to be confused Respiratory: Diminished, Expiratory wheezes Cardiovascular: Regular rate/rhythm, Normal S1 S2, Systolic murmur Gastrointestinal: Normal bowel sounds, Soft and benign, Non-distended, No tenderness Musculoskeletal: No clubbing, No swelling, No tenderness Neurological: Sensation intact, Cranial nerves 3-12 intact Assessment & Plan - Problems (Diagnosis) (1) Acute respiratory failure with hypoxia Current Visit: Yes Status: Acute (2) Pneumonia/encephalopathy due to COVID-19 virus Current Visit: Yes Status: Acute (3) DM type 2 (diabetes mellitus, type 2) Current Visit: Yes Status: Chronic 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 insulin use: with fdc use Diabetes mellitus complication status: with hyperglycemia Qualified Code(s): E11.65 - Type 2 diabetes mellitus with hyperglycemia; Z79.4 - MCFP (current) use of insulin (4) Hypertension Onset Date: 09/13/14 Current Visit: Yes Status: Chronic Hypertension type: primary hypertension Qualified Code(s): I10 - Essential (primary) hypertension (5) Depression Current Visit: No Status: Acute (6) Hx-TIA (transient ischemic attack) Current Visit: No Status: Acute (7) Hyperlipidemia Onset Date: 09/13/14 Current Visit: No Status: Acute - Plan Continue plan of care as mentioned below: 1. Continue with IV steroids. 2. Monitor inflammatory markers 3. Chest x-ray was worsening infiltrate 4. Continue BiPAP support 5. Pulmonary consultation appreciated 6. Continue with albuterol inhaler therapy; also supportive care 7. GI and DVT prophylaxis
[2021-08-02] MEDS: METHYLPREDNISOLONE 40 MG INJ IV SCH ×2 (08:29→20:30)
[2021-08-02] MEDS: ENOXAPARIN 80 MG/0.8 ML SQ SCH (08:29)
[2021-08-02] MEDS: INSULIN -REGULAR HUMAN 50 UNIT/0.5 ML ML SQ SCH ×4 (08:49→20:32)
--- NOTE | 2021-08-02 08:53 | RAD REPORT ---
EXAM DESCRIPTION: RAD - Chest Single View - 08/02/2021 5:44 am CLINICAL HISTORY: resp failure Chest pain. COMPARISON: Chest Single View dated 08/01/2021; Chest Single View dated 07/29/2021; Chest Single View dated 01/07/2020; Chest Pa And Lat (2 Views) dated 01/06/2020 FINDINGS: Portable technique limits examination quality. Moderate bilateral pulmonary opacities are present, greater on the right, unchanged since yesterday's study. Right-sided PICC line is stable in position. The heart is upper limit normal in size. IMPRESSION: Stable chest since yesterday's examination.
[2021-08-02] MEDS ORDERED: GLUCAGON 1 MG/VIAL IM PRN (10:15)
[2021-08-02] MEDS ORDERED: D50W 25 GM/50 ML SYRINGE IV PRN (10:15)
--- NOTE | 2021-08-02 13:49 | PN ---
Date of Progress Note: 08/02/2021 Subjective: The patient was admitted with COVID pneumonia, respiratory failure. The patient required nonrebreather. The patient had hyponatremia, currently hypernatremia. The patient has severe glucose diuresis. Physical Examination: Vital Signs: Blood pressure 121/74, pulse of 106, afebrile. The patient had good urine output of 1300, still negative of 1 L. Chest: Crackles bilateral base. Heart: S1, S2. Systolic murmur. Abdomen: Soft, nontender. Extremity: No edema. Neuro: Confused. No focality. Laboratory Data: Sodium 148, potassium 5.3, bicarb 26, BUN 39, creatinine 0.9, GFR of 59, blood sugar above 200, calcium 9.3, phosphorus 3.6, magnesium 1.7. Current Medications: The patient on include; 1. Atorvastatin. 2. Hydralazine. 3. Lovenox. 4. Pepcid. 5. Insulin. 6. D5 at 80. Assessment And Plan: 1. Hypernatremia secondary to depletional, poor intake. The patient still has significant water deficit as the patient has insensible loss. I am going to go ahead and decrease IV fluids to 100. We will start the patient on insulin to overcome the glucose diuresis and we will monitor the patient. Total deficit around 3 L. 2. Acute kidney injury secondary to prerenal, recovered, resolved. 3. Hypertension, controlled, optimal. Continue current medication. 4. Diabetes, not controlled. Resume insulin. 5. Respiratory failure secondary to COVID pneumonia. Follow up with Pulmonary and Primary. 6. Hyperkalemia. We will monitor the patient closely. Time spent examining the patient [id number] placing order discussing with the patient reviewing data discussing the case with all of our subspecialty including hospitalist 35 minutes JOHNNY Voice ID: [id number] Report ID: [id number] NARA
[2021-08-02] MEDS: AA 5%/D20W/ELECTROLYTES-TPN 2,000 ML, Lipids 20% 250 ML with MULTIVITAMINS INJ 10 ML IV SCH ×3 (16:50)
[2021-08-02] MEDS ORDERED: DEXTROSE 10%-WATER 500 ML IV SCH ×2 (17:00)
[2021-08-02] MEDS ORDERED: MAGNESIUM SULFATE 1 gm IVPB 1 GM/100 ML BAG IV ONE (19:00)
[2021-08-02] MEDS: FAMOTIDINE 20 MG/2 ML VIAL IV SCH (20:30)
[2021-08-02] MEDS: ATORVASTATIN 10 MG TAB PO SCH (20:32)
[2021-08-02] MEDS ORDERED: INSULIN GLARGINE 100 UNITS/ML SQ SCH (21:00)
[2021-08-03] MEDS: HYDROMORPHONE HCL 2 MG/ML inj IV PRN ×6 (00:36→23:06)
[2021-08-03 01:48] LABS: UR PROTEIN 78.6 mg/dL (<11.9); Urine Protein/Creatinine Ratio 0.6 ratio (<0.15)
[2021-08-03] MEDS: LORazepam 2 MG/ML VIAL IV SCH ×7 (03:47→23:06)
[2021-08-03] MEDS: INSULIN -REGULAR HUMAN 50 UNIT/0.5 ML ML SQ SCH ×4 (04:54→21:55)
[2021-08-03] MEDS: HALOPERIDOL LACT 5 MG/ML INJ IV PRN (04:54)
[2021-08-03] MEDS: D5W 1,000 ML IV SCH ×2 (04:55→15:15)
[2021-08-03] MEDS ORDERED: HALOPERIDOL LACT 5 MG/ML INJ ONE (05:17)
[2021-08-03] MEDS ORDERED: D50W 25 GM/50 ML SYRINGE IV PRN (05:41)
[2021-08-03] MEDS ORDERED: GLUCAGON 1 MG/VIAL IM PRN (05:41)
[2021-08-03] MEDS ORDERED: INSULIN -REGULAR HUMAN 50 UNIT/0.5 ML ML SQ ONE (05:45)
[2021-08-03] MEDS: METHYLPREDNISOLONE 40 MG INJ IV SCH ×2 (08:22→21:56)
[2021-08-03] MEDS: ENOXAPARIN 80 MG/0.8 ML SQ SCH (08:22)
[2021-08-03] MEDS: BARICITINIB 2 MG TABLET PO SCH (08:27)
[2021-08-03] MEDS ORDERED: CEFTRIAXONE 1 GM/NS 50 ML 1 GM/50 ML BAG IV SCH (09:00)
--- NOTE | 2021-08-03 11:22 | P.PN ---
Subjective Date of Service: 08/03/21 Chief Complaint: Covid Pneumonia, Hypoxia, ARF N[place] agitated not doign well max therapy Review of Systems is unable to be obtained Physical Examination - Vital Signs Temperature: 98.2 F Blood Pressure: 107/68 Pulse: 111 Respirations: 12 Pulse Ox (%): 92 - Physical Exam General: Unresponsive - Studies Medications List Reviewed: Yes Assessment & Plan - Problems (Diagnosis) (1) Pneumonia due to COVID-19 virus Current Visit: Yes Status: Acute Plan: Resp failur e100% Fio2, BIPAP, Agitated, Repeat Labs / CBC pending/ on TPN. Add Reocephin
[2021-08-03 11:52] LABS: Hematocrit 43.9 % (36.0-45.0); MPV 9.8 fL (7.6-11.3); RBC Red Blood Cell Count 4.38 M/uL (3.86-4.86)
[2021-08-03] MEDS: CEFTRIAXONE/SWI 1gm 1 GM/10 ML SYR IV SCH (11:55)
[2021-08-03] MEDS ORDERED: FUROSEMIDE 40 MG/4 ML VIAL IV ONE (12:40)
--- NOTE | 2021-08-03 13:08 | PN ---
Date of Progress Note: 08/03/2021 Subjective: The patient was admitted with COVID pneumonia, respiratory failure. The patient is still requiring BiPAP, severe leukocytosis. Physical Examination: Vital Signs: When I saw the patient; blood pressure 107/68, pulse of 111, temperature 98.2. The patient had urine output of 13 50, negative of 400. Chest: Crackles bilateral. Heart: S1, S2. Regular. Tachycardic. Abdomen: Soft, nontender. Extremities: No edema. Neuro: Alert. Moving 4 extremities without any focality. Laboratory Data: WBC 27.2, H and H 13.5/43.9. Sodium 148, potassium 5.3, bicarb 26, BUN 39, creatinine 0.9, blood sugar above 300, calcium 9.3, phosphorus 3.6, magnesium 1.7. Current Medications: The patient on include; 1. Lovenox. 2. Ceftriaxone. 3. Atorvastatin 10. 4. Hydralazine. 5. Pepcid. 6. Solu-Medrol 80 b.i.d. 7. Insulin had been increased to 25. 8. Magnesium oxide was given yesterday. 9. Multivitamin. Assessment And Plan: 1. Acute kidney injury secondary to toxic ATN, poor perfusion, ATN, recovered, resolved. Looked to me still on the over volume side. I am going to go ahead and give the patient a single dose of Lasix today and we will monitor the patient. 2. Hypokalemia, hypomagnesemia. We will supplement. We will follow up the lab of today. 3. Hyperglycemia, mostly induced by steroid. Insulin has been adjusted. 4. Hyponatremia secondary to depletional, resolved. 5. Hyperkalemia. The patient is going to be getting dose of Lasix today. We will follow up. No need for other treatment for the time being. Time spent examining the patient [id number] placing order discussing with the patient reviewing data discussing the case with all of our subspecialty including hospitalist 35 minutes JOHNNY Voice ID: [id number] Report ID: [id number] NARA
[2021-08-03 14:27] LABS: Potassium 4.9 mmol/L (3.5-5.1)
[2021-08-03] MEDS ORDERED: AA 5%/D20W/ELECTROLYTES-TPN 2,000 ML with MULTIVITAMINS INJ 10 ML IV SCH ×2 (17:00)
[2021-08-03] MEDS: ATORVASTATIN 10 MG TAB PO SCH (19:42)
[2021-08-03] MEDS ORDERED: INSULIN GLARGINE 100 UNITS/ML SQ SCH (21:00)
[2021-08-04] MEDS: HYDROMORPHONE HCL 2 MG/ML inj IV PRN ×5 (02:56→23:09)
[2021-08-04] MEDS: LORazepam 2 MG/ML VIAL IV SCH ×6 (02:57→23:09)
[2021-08-04] MEDS ORDERED: HALOPERIDOL LACT 5 MG/ML INJ ONE (03:39)
[2021-08-04] MEDS: HALOPERIDOL LACT 5 MG/ML INJ IV PRN (05:00)
--- NOTE | 2021-08-04 05:30 | P.PN ---
Subjective Date of Service: 08/04/21 Chief Complaint: Covid Pneumonia, Hypoxia, ARF Subjective: No new changes Physical Examination - Vital Signs Temperature: 100.5 F Blood Pressure: 129/87 Pulse: 123 Respirations: 22 Pulse Ox (%): 94 - Physical Exam General: Other (appears acutely ill) HEENT: Atraumatic, Normocephalic Neck: Supple Respiratory: Other (symmetric chest expansion) Cardiovascular: No rubs, No murmurs Gastrointestinal: Soft and benign, No guarding Musculoskeletal: No clubbing Integumentary: No warmth Urinary: Other (no bladder distention) - Studies Microbiology Data (last 24 hrs): 07/29/21 19:55 Blood - Blood Aerobic Blood Culture - Final No growth in 5 days. 07/29/21 19:55 Blood - Blood Anaerobic Blood Culture - Final No growth in 5 days. 07/29/21 19:41 Blood - Blood Aerobic Blood Culture - Final No growth in 5 days. 07/29/21 19:41 Blood - Blood Anaerobic Blood Culture - Final No growth in 5 days. Medications List Reviewed: Yes Assessment And Plan - Plan 1. Acute kidney injury secondary to volume depletion. Resolved. On TPN 2. Hypernatremia. Weight 95.4 kg. Total body water 43 L. Free water deficit repletion via TPN. Plan to add D5W gtt if serum Na rises further. 3. Severe hyperglycemia. Start insulin gtt today. 4 Acute respi failure 2/2 covid pna. leukocytosis worsening. Management per primary team. 5. Hypercalcemia. Corrected serum Ca 11.0. IV hydration as above. 6. Hyperkalemia. Improved w/ IV lasix & addition of insulin drip. Monitor. 7. Hypertension. BP ok. Monitor
[2021-08-04 05:49] LABS: Hematocrit 44.5 % (36.0-45.0); MPV 10.5 fL (7.6-11.3); RBC Red Blood Cell Count 4.86 M/uL (3.86-4.86)
[2021-08-04 06:23] LABS: Albumin 2.3 g/dL (3.4-5.0); Bilirubin Total 0.5 mg/dL (0.2-1.0); Phosphorus 4.4 mg/dL (2.5-4.9); Potassium 5.5 mmol/L (3.5-5.1); Protein, Total 7.8 g/dL (6.4-8.2)
[2021-08-04] MEDS ORDERED: FUROSEMIDE 20 MG/ 2ML VIAL IV ONE (06:35)
[2021-08-04] MEDS ORDERED: GLUCAGON 1 MG/VIAL IM PRN (06:35)
[2021-08-04] MEDS ORDERED: D50W 25 GM/50 ML SYRINGE IV PRN (06:35)
[2021-08-04] MEDS ORDERED: INSULIN -REGULAR HUMAN 50 UNIT/0.5 ML ML IV ONE (06:37)
[2021-08-04] MEDS ORDERED: FUROSEMIDE 20 MG/ 2ML VIAL ONE (07:08)
[2021-08-04] MEDS ORDERED: INSULIN -REGULAR HUMAN 50 UNIT/0.5 ML ML ONE (07:08)
[2021-08-04] MEDS: INSULIN -REGULAR HUMAN 50 UNIT/0.5 ML ML SQ SCH ×3 (07:30→12:07)
[2021-08-04] MEDS: CEFTRIAXONE/SWI 1gm 1 GM/10 ML SYR IV SCH (07:38)
[2021-08-04] MEDS: METHYLPREDNISOLONE 40 MG INJ IV SCH ×2 (07:38→19:59)
[2021-08-04] MEDS: ENOXAPARIN 80 MG/0.8 ML SQ SCH (07:39)
[2021-08-04] MEDS: BARICITINIB 2 MG TABLET PO SCH (07:47)
[2021-08-04] MEDS ORDERED: INSULIN 70/30 100 UNITS/ML SQ ONE (07:55)
--- NOTE | 2021-08-04 11:08 | P.PN ---
Subjective Date of Service: 08/04/21 Chief Complaint: Covid Pneumonia, NC agitated and hypoxic on TPN Review of Systems is unable to be obtained Physical Examination - Vital Signs Temperature: 97.6 F Blood Pressure: 135/84 Pulse: 121 Respirations: 16 Pulse Ox (%): 89 - Physical Exam General: Delirious - Studies Microbiology Data (last 24 hrs): 07/29/21 19:55 Blood - Blood Aerobic Blood Culture - Final No growth in 5 days. 07/29/21 19:55 Blood - Blood Anaerobic Blood Culture - Final No growth in 5 days. 07/29/21 19:41 Blood - Blood Aerobic Blood Culture - Final No growth in 5 days. 07/29/21 19:41 Blood - Blood Anaerobic Blood Culture - Final No growth in 5 days. Medications List Reviewed: Yes Assessment & Plan - Problems (Diagnosis) (1) Pneumonia due to COVID-19 virus Current Visit: Yes Status: Acute Plan: NC or improvment / BS very elevatedWBC elevated/ Mild hyperkalemai/ prognosis poor unlikley to survive/ No actemera available
[2021-08-04] MEDS: INSULIN -REGULAR HUMAN 100 UNIT in NA CHLORIDE 0.9% 100 ML IV SCH (14:04)
[2021-08-04 15:43] LABS: Albumin 2.4 g/dL (3.4-5.0); Magnesium 2.2 mg/dL (1.8-2.4); Phosphorus 3.5 mg/dL (2.5-4.9); Potassium 4.8 mmol/L (3.5-5.1)
[2021-08-04] MEDS: AA 5%/D20W/ELECTROLYTES-TPN 2,000 ML, Lipids 20% 250 ML with MULTIVITAMINS INJ 10 ML IV SCH ×3 (17:00)
[2021-08-04] MEDS ORDERED: METOPROLOL TARTRATE 5 MG/5 ML INJ IV ONE ×2 (19:46→20:11)
[2021-08-04] MEDS: FAMOTIDINE 20 MG/2 ML VIAL IV SCH (19:59)
[2021-08-04] MEDS ORDERED: INSULIN GLARGINE 100 UNITS/ML SQ SCH (21:00)
--- NOTE | 2021-08-04 22:41 | P.PN ---
Date of Service: 08/03/21 Subjective Patient continues to deteriorate. Spoke with family and they reiterated they did not want patient intubated. If patient continues to decline we will readdress code status. Patient's neurologic status is not really improving. It appears patient has encephalitis related to COVID-19. Review of Systems Unable to review her systems because of confusion Physical Examination - Vital Signs Reviewed - Physical Exam General: Delirious, Respiratory: Diminished, Expiratory wheezes Cardiovascular: Regular rate/rhythm, Normal S1 S2, Systolic murmur Gastrointestinal: Normal bowel sounds, Soft and benign, Non-distended, No tenderness Musculoskeletal: No clubbing, No swelling, No tenderness Neurological: Moves all extremities and cranial nerves are intact - Studies Medications List Reviewed: Yes Assessment & Plan - Problems (Diagnosis) (1) Acute respiratory failure with hypoxia Current Visit: Yes Status: Acute (2) Pneumonia/encephalopathy due to COVID-19 virus Current Visit: Yes Status: Acute (3) DM type 2 (diabetes mellitus, type 2) Current Visit: Yes Status: Chronic Qualifiers: Diabetes mellitus custodial insulin use: with custodial use Diabetes mellitus complication status: with hyperglycemia Qualified Code(s): E11.65 - Type 2 diabetes mellitus with hyperglycemia; Z79.4 - remote computer terminal operator (current) use of insulin (4) Hypertension Onset Date: 09/13/14 Current Visit: Yes Status: Chronic Qualifiers: Hypertension type: primary hypertension Qualified Code(s): I10 - Essential (primary) hypertension (5) Depression Current Visit: No Status: Acute (6) Hx-TIA (transient ischemic attack) Current Visit: No Status: Acute (7) Hyperlipidemia Onset Date: 09/13/14 Current Visit: No Status: Acute - Plan Continue plan of care as mentioned below: 1. Continue with IV steroids at this time-continue to taper dosing. 2. Monitor labs as well as inflammatory markers 3. Repeat chest x-ray 4. Continue with BiPAP support with complete face mask 5. Pulmonary consultation appreciated 6. Could try nebulizer treatments to see if that would benefit patient 7. Starting on a insulin drip per Nephrology. Monitor blood sugars closely. 8. Patient has needed a 1 on 1 sitter as well as continue with neuro checks for the encephalopathy. Patient has a [id number]. 9. GI and DVT prophylaxis
--- NOTE | 2021-08-04 22:50 | P.PN ---
Date of Service: 08/04/21 Subjective Patient with tachyarrhythmia. Status post beta-jonathan therapy. Heart rate better controlled. Continue with TPN. 08/03 Patient continues to deteriorate. Spoke with family and they reiterated they did not want patient intubated. If patient continues to decline we will readdress code status. Patient's neurologic status is not really improving. It appears patient has encephalitis related to COVID-19. Review of Systems Unable to review her systems because of confusion Physical Examination - Vital Signs Reviewed - Physical Exam General: Delirious, Respiratory: Diminished, Expiratory wheezes Cardiovascular: Regular rate/rhythm, Normal S1 S2, Systolic murmur Gastrointestinal: Normal bowel sounds, Soft and benign, Non-distended, No tenderness Musculoskeletal: No clubbing, No swelling, No tenderness Neurological: Moves all extremities and cranial nerves are intact - Studies Medications List Reviewed: Yes Assessment & Plan - Problems (Diagnosis) (1) Acute respiratory failure with hypoxia Current Visit: Yes Status: Acute (2) Pneumonia/encephalopathy due to COVID-19 virus Current Visit: Yes Status: Acute (3) DM type 2 (diabetes mellitus, type 2) Current Visit: Yes Status: Chronic Qualifiers: Diabetes mellitus detention insulin use: with technician terminal and repeater use Diabetes mellitus complication status: with hyperglycemia Qualified Code(s): E11.65 - Type 2 diabetes mellitus with hyperglycemia; Z79.4 - custodial (current) use of insulin (4) Hypertension Onset Date: 09/13/14 Current Visit: Yes Status: Chronic Qualifiers: Hypertension type: primary hypertension Qualified Code(s): I10 - Essential (primary) hypertension (5) Depression Current Visit: No Status: Acute (6) Hx-TIA (transient ischemic attack) Current Visit: No Status: Acute (7) Hyperlipidemia Onset Date: 09/13/14 Current Visit: No Status: Acute - Plan Continue plan of care as mentioned below: 1. Continue with IV steroids at this time-continue to taper dosing. Solu-Medrol at 40 mg IV Q 8 hr 2. Beta-jonathan therapy; Lopressor 5 mg IV Q 6 hr scheduled and hold if systolic blood pressure less than 120 or heart rate less than 70 3. Continue with TPN 4. Continue with BiPAP support with complete face mask 5. may need to get further imaging of the chest if continues clinical decline 6. Could try nebulizer treatments to see if that would benefit patient 7. Starting on a insulin drip per Nephrology. Monitor blood sugars closely. 8. Patient has needed a 1 on 1 sitter as well as continue with neuro checks for the encephalopathy. Patient has a [id number]. 9. GI and DVT prophylaxis
[2021-08-05] MEDS: METOPROLOL TARTRATE 5 MG/5 ML INJ IV SCH ×3 (00:39→12:00)
[2021-08-05] MEDS ORDERED: INSULIN -REGULAR HUMAN 50 UNIT/0.5 ML ML ONE ×2 (01:45→17:45)
[2021-08-05] MEDS: METHYLPREDNISOLONE 40 MG INJ IV SCH ×3 (04:15→20:43)
[2021-08-05] MEDS: LORazepam 2 MG/ML VIAL IV SCH ×6 (04:15→23:07)
[2021-08-05] MEDS: HYDROMORPHONE HCL 2 MG/ML inj IV PRN ×4 (04:15→21:19)
[2021-08-05 06:07] LABS: Absolute Lymphocytes (CBC) 0.8 K/uL (0.7-4.9); Basophils % 0.2 % (0-1.3); Hematocrit 48.6 % (36.0-45.0); Lymphocytes % 2.6 % (15.3-44.8); MPV 11.1 fL (7.6-11.3); RBC Red Blood Cell Count 5.31 M/uL (3.86-4.86)
[2021-08-05 06:31] LABS: Albumin 2.3 g/dL (3.4-5.0); Bilirubin Total 0.6 mg/dL (0.2-1.0); Ferritin 1913.8 ng/mL (8-388); Magnesium 2.3 mg/dL (1.8-2.4); Potassium 4.7 mmol/L (3.5-5.1); Protein, Total 8.2 g/dL (6.4-8.2)
[2021-08-05] MEDS: ENOXAPARIN 80 MG/0.8 ML SQ SCH (07:46)
[2021-08-05] MEDS ORDERED: CEFTRIAXONE 1 GM/NS 50 ML 1 GM/50 ML BAG IV SCH (09:00)
--- NOTE | 2021-08-05 10:26 | RAD REPORT ---
EXAM DESCRIPTION: RAD - Chest Single View - 08/05/2021 7:00 am CLINICAL HISTORY: pneumonia Chest pain. COMPARISON: Chest Single View dated 08/02/2021; Chest Single View dated 08/01/2021; Chest Single View dated 07/29/2021; Chest Single View dated 01/07/2020 FINDINGS: Portable technique limits examination quality. Moderate bilateral pulmonary opacities persists, slightly greater on the right and unchanged since . The heart is normal in size. Right PICC line has tip in the SVC. IMPRESSION: Stable chest noted since 08/02/2021.
[2021-08-05 10:51] LABS: Platelet Estimate ADEQ
[2021-08-05] MEDS ORDERED: ADENOSINE 6 MG/ 2ML VIAL IV ONE ×2 (10:51→10:57)
[2021-08-05 10:52] LABS: Blood Morphology Comment NOT SEEN (NOT SEEN); Platelets, Giant FEW PRESENT
[2021-08-05] MEDS ORDERED: HALOPERIDOL LACT 5 MG/ML INJ IV PRN (11:46)
--- NOTE | 2021-08-05 11:46 | P.PN ---
Subjective Date of Service: 08/05/21 Chief Complaint: Covid Pneumonia, Hypoxia, ARF No change in patient's condition still continues to remain hypoxic delirious no change in her renal function either she is still hypernatremic now has an SVT Review of Systems is unable to be obtained Physical Examination - Vital Signs Temperature: 98.3 F Blood Pressure: 133/82 Pulse: 130 Respirations: 12 Pulse Ox (%): 94 - Physical Exam General: Unresponsive - Studies Medications List Reviewed: Yes Assessment & Plan - Problems (Diagnosis) (1) Pneumonia due to COVID-19 virus Current Visit: Yes Status: Acute Plan: Respiratory failure severe coronavirus pneumonia hyponatremia renal function abnormal nephrology has been consulted patient is currently on insulin drip still on FiO2 100 patient is on BiPAP on FiO2 of 100% patient did have a trial of patient did have a trial of adenosine it showed supraventricular tachycardia no evidence of atrial flutter patient is on IV metoprolol will try as esmolol drip white count is still significantly white count is still significantly elevated/diffuse changes of diffuse changes on x-ray
[2021-08-05] MEDS ORDERED: NA CHLORIDE 0.9% IV SCH (12:00)
[2021-08-05] MEDS ORDERED: ESMOLOL HCL IV SCH (12:00)
--- NOTE | 2021-08-05 12:28 | P.PN ---
Subjective Date of Service: 08/05/21 Chief Complaint: Covid Pneumonia, Hypoxia, ARF Subjective: No new changes Review of Systems is unable to be obtained Physical Examination - Vital Signs Temperature: 98.3 F Blood Pressure: 133/82 Pulse: 130 Respirations: 12 Pulse Ox (%): 94 - Physical Exam General: Unresponsive HEENT: Atraumatic, PERRLA, EOMI Neck: Supple, JVD not distended Respiratory: Diminished Cardiovascular: Regular rate/rhythm, Normal S1 S2 Gastrointestinal: Normal bowel sounds, No tenderness Musculoskeletal: No tenderness Integumentary: No rashes Neurological: Normal speech, Normal tone, Normal affect Lymphatics: No axilla or inguinal lymphadenopathy - Studies Medications List Reviewed: Yes Assessment & Plan - Problems (Diagnosis) (1) Pneumonia due to COVID-19 virus Current Visit: Yes Status: Acute Plan: continue the on steroids and oxygen. Have discussed with the patients niece. She is poor prognsis (2) Tachycardia Current Visit: Yes Status: Acute Plan: starting the patient on an esmolol drip. (3) Hypernatremia Current Visit: Yes Status: Acute Plan: Will start the patient on d5 1/2 n slowly. Will check serial bnp. (4) DM type 2 (diabetes mellitus, type 2) Current Visit: Yes Status: Chronic Plan: continue insulin drip. Qualifiers: Diabetes mellitus long lines operator insulin use: with long lines operator use Diabetes mellitus complication status: with hyperglycemia Qualified Code(s): E11.65 - Type 2 diabetes mellitus with hyperglycemia; Z79.4 - longterm (current) use of insulin Discharge Plan: Home Plan to discharge in: Greater than 2 days - Code Status/Comfort Care Code Status Assessed: No Physician Review: Patient Assessed, Agree with Above Assessment and Plan Critical Care: Yes Time Spent Managing Pts Care (In Minutes): 30
--- NOTE | 2021-08-05 12:28 | PN ---
Date of Progress Note: 08/05/2021 Subjective: The patient was admitted with COVID pneumonia, respiratory failure. The patient had acu te kidney injury and hypernatremia. The patient has been on TPN. The patient on vent, has tachycard ia. Physical Examination: Vital Signs: Blood pressure 133/82, pulse of 130. Chest: Crackles bilateral. Heart: S1, S2. Tachycardic. Abdomen: Soft, nontender. Extremities: Plus edema. Neuro: The patient is sedated on vent. Laboratory Data: WBC 32.4, H and H 15.4/48.6. Sodium 153, potassium 4.7, bicarb 32, BUN 64, creatin ine 1.3, calcium 10.2, magnesium 2.3, albumin 2.3, corrected calcium is 11.6. Current Medications: The patient on, include: 1.Ceftriaxone. 2.Metoprolol. 3.Hydralazine. 4.Lasix was given yesterday. 5.Pepcid. 6.Insulin drip. 7.TPN. Assessment And Plan: 1.Acute kidney injury secondary to prerenal, dehydration secondary to glucose diuresis. I agree wit h insulin drip. We will monitor the patient closely. 2.Hypernatremia secondary to depletional. Continue insulin drip. We will change the TPN to nonelec trolyte. 3.Hypercalcemia, possible secondary to vitamin D and TPN/depletional. We will change the TPN to non electrolyte. We will hold on any calcium supplement and we will hold on multivitamin. We will follo w up with primary. 4.Respiratory failure secondary to COVID pneumonia. Continue vent support. Chest x-ray does not sh ow any overvolume picture. Continue to monitor. 5.Lactic acidosis secondary to poor perfusion secondary to hypoxemia. The patient received bicarb y . Currently, her bicarb is 32. We will continue to monitor the patient. TED/ZULEYKA Voice ID: [id number] Report ID: [id number]
[2021-08-05] MEDS ORDERED: D5 0.45 NS 1,000 ML IV SCH (13:00)
[2021-08-05] MEDS: DILTIAZEM 125 MG in NS 125 ML IVPB SCH ×2 (13:23→23:39)
[2021-08-05 14:39] LABS: Potassium 4.8 mmol/L (3.5-5.1)
[2021-08-05] MEDS ORDERED: AMINO ACIDS 10% IV SCH ×3 (17:00)
[2021-08-05] MEDS ORDERED: MULTIVITAMINS IV SCH ×3 (17:00)
[2021-08-05] MEDS ORDERED: WATER IV SCH ×3 (17:00)
[2021-08-05] MEDS ORDERED: DEXTROSE 10% IV SCH ×3 (17:00)
[2021-08-05] MEDS ORDERED: NA CHLORIDE 0.9% 100 ML ONE (17:45)
[2021-08-05] MEDS: INSULIN -REGULAR HUMAN 100 UNIT in NA CHLORIDE 0.9% 100 ML IV SCH (17:48)
[2021-08-05] MEDS ORDERED: ACETAMINOPHEN 650MG/RECT SUPP PR PRN (17:50)
[2021-08-05 20:14] VITALS: O2SAT 93
[2021-08-06 00:22] VITALS: TEMP 98.1
[2021-08-06] MEDS ORDERED: EPINEPHrine 1 MG/10 ML SYR IV ONE (03:11)
[2021-08-06] MEDS ORDERED: MAGNESIUM SULFATE 1 gm IVPB 1 GM/100 ML BAG IV ONE (03:25)
[2021-08-06 04:13] VITALS: BP 107/82
== END 2021-08-06 03:12 | disposition expired | DRG 177 ==
LOC: ER 19:21 → ERHOLD 20:55 → 3RD-ICU 21:56
PROVIDERS: ADMIT Internal Medicine; ATTEND Hospitalist
PROC: 02HV33Z Insertion of Infusion Device into Superior Vena Cava, Percutaneous Approach (ICD-10-PCS; 2021-08-01)
PROC: 5A09557 Assistance with Respiratory Ventilation, Greater than 96 Consecutive Hours, Continuous Positive Airway Pressure (ICD-10-PCS; principal; 2021-08-04)
PROC: 5A12012 Performance of Cardiac Output, Single, Manual (ICD-10-PCS; 2021-08-06)
DX: U07.1 COVID-19 (principal); J12.82 Pneumonia due to coronavirus disease 2019; J96.01 Acute respiratory failure with hypoxia; N17.0 Acute kidney failure with tubular necrosis; E87.0 Hyperosmolality and hypernatremia; E87.2 Acidosis; G93.49 Other encephalopathy; F41.9 Anxiety disorder, unspecified; G89.29 Other chronic pain; I10 Essential (primary) hypertension; E86.0 Dehydration; E78.00 Pure hypercholesterolemia, unspecified; M19.90 Unspecified osteoarthritis, unspecified site; K21.9 Gastro-esophageal reflux disease without esophagitis; F32.9 Major depressive disorder, single episode, unspecified; E78.5 Hyperlipidemia, unspecified; E87.5 Hyperkalemia; E87.6 Hypokalemia; E83.42 Hypomagnesemia; E11.65 Type 2 diabetes mellitus with hyperglycemia; E83.52 Hypercalcemia; R00.0 Tachycardia, unspecified; Z86.73 Personal history of transient ischemic attack (TIA), and cerebral infarction without residual deficits
CPT/HCPCS: 0240U; 36415; 36569; 71045; 76770; 80048; 80053; 80061; 80069; 80076; 81003; 81015; 82010; 82570; 82728; 82805; 82947; 83036; 83605; 83735; 83880; 84100; 84132; 84145; 84156; 84300; 84484; 85025; 85027; 85379; 85610; 85730; 86140; 87040; 93005; 94002; 94003; 94660; 99285; J0153; J0171; J0456; J0696; J1170; J1630; J1720; J1815; J1940; J2920; J3475; J3486; J7030; J7050; J7120; J7799